=== PATIENT | male | born 1940 | race Hispanic/Latino ===

== ENCOUNTER 2016-12-29 09:37 | Outpatient (CLI) | payer MEDICARE, OTHER ==
[2016-12-29] MEDS ORDERED: NACL ONE (10:13)
[2016-12-29 10:14] LABS: Blood Urea Nitrogen 15 mg/dL (9-20)
--- NOTE | 2016-12-29 12:08 | Cat Scan Report ---
CT CHEST WITH CONTRAST: INDICATION: Pulmonary nodule. COMPARISON: 09/02/2016 PET/CT images. FINDINGS: Chest CT performed following IV contrast demonstrates normal heart size. No effusions. Few atherosclerotic changes, more so about the aortic arch and the descending aorta with intramural thrombus irregularity as also possible small ulcerations about the aortic arch measuring approximately 7 mm as on axial images 82 and 88, series 2, amongst others. No aortic aneurysm or suspicious pulmonary arterial filling defects. Patent central airway. No size significant axillary or hilar lymphadenopathy. Few small precarinal lymph nodes, the largest approximately 1 cm, axial image 104, series 2. Unremarkable thyroid. Interstitial lung disease with peripheral/subpleural septal thickening and early honeycombing noted, more so in both upper and lower lobes. Emphysematous changes in the upper lobes also noted, including mildly spiculated peripheral/pleural-based right upper lobe density anteriorly estimated at 1.3 x 1.2 cm, axial image 52, series 2. No other focal suspicious masses. Mild nonspecific distal esophageal prominence/thickening, not excluded for gastroesophageal reflux and/or hiatal hernia, amongst others. No acute upper abdominal CT abnormality with gastric posteromedial exaggerated wall thickness/possible 3.2 cm diverticulum not entirely excluded as on axial series 2, image 224, amongst others. Prominent multilevel degenerative changes along the imaged spine, including spurring and few end plate Schmorl's nodes. CONCLUSION: 1. No interval worsening of somewhat spiculated, scar-like right upper lobe pleural-based density in this patient with underlying chronic lung disease, as detailed above. Direct comparison with more remote relevant imaging would be very helpful to reassure stability and avoid further follow-up; in the absence of which a repeat CT in approximately 6-12 months may be considered towards a two year surveillance, as appropriate. 2. Various other incidental findings, as above. Thank you for the opportunity to participate in this patient's care.
== END 2016-12-29 09:38 | disposition home or self-care (01) ==
LOC: CT 09:37
PROVIDERS: ATTEND Internal Medicine Critical Care Medicine
DX: J84.9 Interstitial pulmonary disease, unspecified (principal); J98.4 Other disorders of lung; M47.899 Other spondylosis, site unspecified
CPT/HCPCS: 36415; 71260; 82565; 84520; Q9967

== ENCOUNTER 2017-06-22 09:04 | Outpatient (CLI) | payer MEDICARE, OTHER ==
[2017-06-22] MEDS ORDERED: NACL ONE (09:37)
[2017-06-22 09:40] LABS: Blood Urea Nitrogen 12 mg/dL (9-20)
--- NOTE | 2017-06-22 13:44 | Cat Scan Report ---
CT CHEST WITH CONTRAST History: Pulmonary nodule. Technique: Helical CT 1.25 mm intervals with sagittal and coronal reformatted images. Findings: The spiculated subpleural density in the anterior right upper lobe appears relatively stable since 12/29/16 measuring 1.4 x 1.3 cm in axial plane. There are underlying emphysematous changes with early fibrotic changes. No new pulmonary nodule or mass. No infiltrate or pleural effusion. Heart size is within normal limits. There are mild to moderate aortic calcifications but no aneurysm or dissection. The tracheobronchial tree, esophagus and thyroid gland are unremarkable. No mediastinal adenopathy has developed. The bony structures remain unremarkable. Thoracic spondylosis is stable. Impression: No significant change in the spiculated subpleural lesion in the anterior right upper lobe since 12/29/16. Emphysema. Mild fibrotic changes.
== END 2017-06-22 09:05 | disposition home or self-care (01) ==
LOC: CT 09:04
PROVIDERS: ATTEND Internal Medicine Critical Care Medicine
DX: J43.9 Emphysema, unspecified (principal); R91.1 Solitary pulmonary nodule; I70.0 Atherosclerosis of aorta; M47.894 Other spondylosis, thoracic region; F17.200 Nicotine dependence, unspecified, uncomplicated
CPT/HCPCS: 36415; 71260; 82565; 84520; Q9967

== ENCOUNTER 2018-03-30 10:01 | Outpatient (CLI) | payer MEDICARE, OTHER ==
--- NOTE | 2018-03-31 11:34 | PET Report ---
PET/CT:03/30/18 10:01:00 CLINICAL: Right upper lobe lung mass. RADIOPHARMACEUTICAL: 15.011mCi F18-FDG. COMPARISON: CT Chest 06/22/17 and 12/29/16 and PET/CT 07/03/16. TECHNIQUE- Following intravenous injection of F-18 FDG and an approximately 60 minute uptake period, CT and PET images from the mid skull to the upper thighs were acquired with the patient in the fasted state. No contrast was administered. The CT protocol used for this PET CT study is designed for attenuation correction and anatomic localization of PET abnormalities. This commercial loan collection officer CT is not desired to produce and cannot replace, [id number] diagnostic CT scans with specific imaging protocols for different body parts and indications. Plasma glucose at the time of this test: 105g/dl. The standardized uptake values (SUV) are normalized to patient body weight and indicate the highest activity concentration (SUV max) in a given disease site. FINDINGS: Brain--Physiologic FDG uptake in the visualized regions of the brain. Neck--Physiologic FDG uptake . Chest--Physiologic FDG uptake in mediastinal blood pool and myocardium. Lungs--There is a definite change compared to prior exams. A new spiculated FDG avid 3.1 x 3.1 cm right upper lobe lung mass with SUV 6.7 has developed at the inferior aspect of the previously described pleural-based scar. The pleural-based linear scar has thickened and measures 3.3 x 1.3 cm with SUV 6.2. The lungs are otherwise unchanged with stable extensive emphysema and multilobar peripheral fibrotic changes. Pleura/pericardium--No abnormal uptake. No pleural effusion. Thoracic nodes--A 1.3 x 1.2 cm FDG avid pretracheal lymph node with SUV 5.7 compared to 1.4 x 1.1 cm and SUV 5.4. No new abnormal uptake and no new lymphadenopathy. Hepatobiliary--No abnormal uptake. Liver background SUV mean, as a reference for comparing FDG studies, is 2.7 compared to 2.9 on the last exam. No liver mass. Spleen--No abnormal uptake. Pancreas--No abnormal uptake. Adrenal Glands--No abnormal uptake. Kidneys/Ureters/Bladder--No abnormal uptake. Abdominopelvic Nodes--No abnormal uptake. Bowel/Peritoneum/Mesentery--No abnormal uptake. Pelvic organs--No abnormal uptake. The prostate is moderately enlarged and there is mild diffuse thickening of the urinary bladder wall. Bones/Soft Tissues--No abnormal uptake. No suspicious bone lesion. IMPRESSION- 1. A new FDG avid 3.1 cm x 3.1 cm right upper lobe lung mass which has developed at the inferior aspect of a larger FDG avid pleural-based scar. The lesion would be amenable to CT-guided percutaneous needle biopsy. 2. Stable emphysema and multilobar fibrotic changes. 3. A stable FDG avid pretracheal lymph node and no new lymphadenopathy. 4. No evidence of hepatic skeletal metastasis. 5. Prostate enlargement and urinary bladder wall thickening.
== END 2018-03-30 10:02 | disposition home or self-care (01) ==
LOC: PET 10:01
PROVIDERS: ATTEND Internal Medicine Critical Care Medicine
DX: C34.30 Malignant neoplasm of lower lobe, unspecified bronchus or lung (principal); J43.9 Emphysema, unspecified; N40.0 Benign prostatic hyperplasia without lower urinary tract symptoms; F17.210 Nicotine dependence, cigarettes, uncomplicated
CPT/HCPCS: 78815; 82962; A9552

== ENCOUNTER 2019-12-06 10:02 | Inpatient (IN) | payer MEDICARE, OTHER ==
[2019-12-06] MEDS ORDERED: ASPIRIN 81 MG TAB CHEW PO ONE (10:20)
--- NOTE | 2019-12-06 10:26 | Emergency Department Report ---
ED Palpitations HPI - General Chief Complaint: Arrhythmia/Palpitations Stated Complaint: PULSE RATE HIGH Time Seen by Provider: 12/06/19 10:16 Source: patient Mode of arrival: Ambulatory Limitations: No Limitations - History of Present Illness Initial Comments: Mr. Angulo is a pleasant 79 years old male with history of lung cancer currently taking radiation. Patient went for his radiation therapy this morning and found to have a heart rate of 159 patient was asked to come to the ER. In the ER patient found to be in atrial fibrillation with RVR and a heart rate of 142. Patient stated that he never had history of irregular heartbeat before. He st ated that last night he felt slightly dizzy but went away. Currently patient denying any chest pain or shortness of breath. No fever or chills. No recent nausea or vomiting MD Complaint: rapid heart beat, "heart racing", palpitations, irregular heart beat -: Last night Associated Symptoms: denies other symptoms - Related Data Home Medications Medication Instructions Recorded Confirmed Last Taken ALBUTEROL Inhaler(NF) [VENTOLIN 2 puff INHALATION DAILY PRN 01/17/17 01/17/17 01/12/17 Inhaler(NF)] Tamsulosin HCl 0.4 mg PO DAILY 01/17/17 01/17/17 01/16/17 Previous Rx's Medication Instructions Recorded Last Taken Type Aspirin EC [Halfprin EC] 81 mg PO QDAY #30 tablet. 01/17/17 Unknown Rx AtorvaSTATin [Lipitor] 40 mg PO QHS #30 tablet 01/17/17 Unknown Rx Allergies Allergy/AdvReac Type Severity Reaction Status Date / Time No Known Allergies Allergy Verified 01/17/17 09:19 ED Review of Systems ROS: Stated complaint: PULSE RATE HIGH Other details as noted in HPI Comment: All other systems reviewed and negative Constitutional: denies: chills, fever Respiratory: denies: cough, shortness of breath, SOB with exertion, SOB at rest, wheezing Cardiovascular: palpitations. denies: chest pain Gastrointestinal: denies: abdominal pain, nausea, vomiting, diarrhea, constipation, hematemesis, melena, hematochezia Musculoskeletal: denies: back pain Neurological: denies: headache, weakness, numbness, paresthesias, confusion ED Past Medical Hx - Past Medical History Previous Medical History?: Yes Hx of Cancer: Yes (lung) Hx Arthritis: Yes (knees & thumbs) - Surgical History Past Surgical History?: Yes Additional Surgical History: back surgery - Social History Smoking Status: Current Every Day Smoker Substance Use Type: None - Medications Home Medications: Home Medications Medication Instructions Recorded Confirmed Last Taken Type ALBUTEROL Inhaler(NF) [VENTOLIN 2 puff INHALATION DAILY PRN 01/17/17 01/17/17 01/12/17 History Inhaler(NF)] Aspirin EC [Halfprin EC] 81 mg PO QDAY #30 tablet. 01/17/17 Unknown Rx AtorvaSTATin [Lipitor] 40 mg PO QHS #30 tablet 01/17/17 Unknown Rx Tamsulosin HCl 0.4 mg PO DAILY 01/17/17 01/17/17 01/16/17 History ED Physical Exam - General Limitations: No Limitations General appearance: alert, in no apparent distress - Head Head exam: Present: atraumatic, normocephalic, normal inspection - Eye Eye exam: Present: normal appearance - ENT ENT exam: Present: normal exam, normal orophraynx, mucous membranes moist - Neck Neck exam: Present: normal inspection, full ROM. Absent: tenderness, meningismus, lymphadenopathy, thyromegaly - Respiratory Respiratory exam: Present: normal lung sounds bilaterally - Cardiovascular Cardiovascular Exam: Present: tachycardia, irregular rhythm - GI/Abdominal GI/Abdominal exam: Present: soft, normal bowel sounds. Absent: distended, tenderness, guarding, rebound, rigid, organomegaly, mass, bruit, pulsatile mass, hernia - Extremities Exam Extremities exam: Present: normal inspection, full ROM, normal capillary refill. Absent: tenderness, pedal edema, joint swelling, calf tenderness - Back Exam Back exam: Present: normal inspection, full ROM. Absent: CVA tenderness (R), CVA tenderness (L) - Neurological Exam Neurological exam: Present: alert, reflexes normal. Absent: oriented X3, CN II- XII intact, normal gait, abnormal gait - Skin Skin exam: Present: warm, intact, normal color ED Course Vital Signs 12/06/19 12/06/19 12/06/19 10:14 10:30 11:15 Temperature 97.7 F Pulse Rate 156 H 118 H 115 H Respiratory 16 16 Rate Blood Pressure 136/74 125/63 Blood Pressure 105/79 [Right] O2 Sat by Pulse 94 100 Oximetry 12/06/19 11:57 Temperature Pulse Rate 75 Respiratory 18 Rate Blood Pressure Blood Pressure 137/80 [Right] O2 Sat by Pulse 98 Oximetry ED Medical Decision Making - Lab Data Result diagrams: 12/06/19 10:27 12/06/19 10:27 - EKG Data -: EKG Interpreted by Me Rate: tachycardia - EKG Data 12/06/19 12:24 Atrial fibrillation with RVR, heart rate 142 - Medical Decision Making Mr. Angulo is a pleasant 79 years old male with history of lung cancer currently taking radiation. Patient went for his radiation therapy this morning and found to have a heart rate of 159 patient was asked to come to the ER. In the ER patient found to be in atrial fibrillation with RVR and a heart rate of 142. Patient stated that he never had history of irregular heartbeat before. He stated that last night he felt slightly dizzy but went away. Currently patient denying any chest pain or shortness of breath. No fever or chills. No recent nausea or vomiting. EKG showed A. fib with RVR and a heart rate of 100.2. Patient received Cardizem 10 mg IV and is started on Cardizem drip at 5 mg per hour. Labs reviewed and is unremarkable including a negative troponin. Patient heart rate now is 82. Discussed the patient with Dr. Castellon, he agreed to admit the patient to medical service for further management. Critical Care Time: Yes Critical care time in (mins) excluding proc time.: 30 Critical care attestation.: If time is entered above; I have spent that time in minutes in the direct care of this critically ill patient, excluding procedure time. ED Disposition Clinical Impression: Atrial fibrillation with rapid ventricular response Disposition: OP ADMIT IP TO THIS HOSP Is pt being admited?: Yes Condition: Stable
[2019-12-06 10:56] LABS: Basophils % (Auto) 0.5 % (0.0-1.8); Eosinophils # (Auto) 0.2 K/mm3 (0.0-0.4); Eosinophils % (Auto) 2.8 % (0.0-4.3); Hematocrit 43.6 % (35.5-45.6); Hemoglobin 14.4 gm/dl (11.8-15.2); Lymphocytes # (Auto) 1.2 K/mm3 (1.2-5.4); Lymphocytes % (Auto) 19.9 % (13.4-35.0); Mean Corpuscular HGB Conc 33 % (32-34); Mean Corpuscular Volume 91 fl (84-94); Monocytes # (Auto) 0.3 K/mm3 (0.0-0.8); Monocytes % (Auto) 5.6 % (0.0-7.3); Platelet Count 303 K/mm3 (140-440); Red Blood Count 4.79 M/mm3 (3.65-5.03); Red Cell Distribution Width 15.9 % (13.2-15.2)
[2019-12-06] MEDS ORDERED: dilTIAZem 50 MG/10 ML INJ IV ONE (11:00)
[2019-12-06] MEDS ORDERED: dilTIAZem/D5W 100 MG/100 ML BAG IV SCH (11:00)
[2019-12-06] MEDS ORDERED: dilTIAZem 25 MG/5 ML INJ IV ONE (11:00)
[2019-12-06 11:07] LABS: INR 0.96 (0.87-1.13)
[2019-12-06 11:08] LABS: Partial Thromboplastin Time 28.7 Sec. (24.2-36.6)
--- NOTE | 2019-12-06 11:09 | XRay Report ---
CHEST 1 VIEW 12/06/2019 10:29 AM INDICATION / CLINICAL INFORMATION: Dysrhythmia. COMPARISON: PET/CT from 03/30/2018. FINDINGS: SUPPORT DEVICES: None. HEART / MEDIASTINUM: No significant abnormality. LUNGS / PLEURA: Generalized or central prominence likely represents chronic parenchymal disease. No o ther acute pulmonary abnormality, pleural effusion or pneumothorax. ADDITIONAL FINDINGS: No significant additional findings. IMPRESSION: 1. No acute abnormality of the chest. 2. Probable chronic interstitial lung disease. Signer Name: Wilberto Saul MD Signed: 12/06/2019 11:05 AM Workstation Name: [id number]
[2019-12-06 12:04] LABS: BUN/Creatinine Ratio 19; Blood Urea Nitrogen 15 mg/dL (9-20); Calcium 9.4 mg/dL (8.4-10.2); Hemolysis Index 6
--- NOTE | 2019-12-06 12:24 | History and Physical Report ---
History of Present Illness Chief complaint: My heart was beating real fast History of present illness: 79-year-old male with osteoarthritis, nicotine dependence, lung cancer currently undergoing radiation therapy presents to ED for evaluation. Patient states that he went to his oncologist office for his routine scheduled radiation therapy this morning. Upon getting vital signs taken, the patient was found to have a heart rate of 159. Patient was instructed to seek further care at [facility]. Patient transported to [facility] via private vehicle. Patient seen and evaluated in the emergency department. Lab and imaging studies reviewed. EKG showed atrial fibrillation with rapid ventricular response. Patient admitted to [facility] for medical stabilization due to increased risk of decompensation. Cardiology team consulted in ED. Patient denies fever, chills, shortness of breath, chest pain, palpitations, bright red blood per rectum, productive cough, skin rash, unintentional weight loss, night sweats, recent ill contacts. No prior admission for review. All listed medication reconciled at time of admission. Advanced care planning conducted in ED. Patient acknowledges understanding and agreement with care plan. Past History Past Medical History: arthritis, diabetes, other (See HPI) Past Surgical History: Other (Back surgery) Social history: smoking Family history: hypertension Medications and Allergies Allergies Allergy/AdvReac Type Severity Reaction Status Date / Time No Known Allergies Allergy Verified 01/17/17 09:19 Home Medications Medication Instructions Recorded Confirmed Last Taken Type ALBUTEROL Inhaler(NF) [VENTOLIN 2 puff INHALATION DAILY PRN 01/17/17 01/17/17 01/12/17 History Inhaler(NF)] Aspirin EC [Halfprin EC] 81 mg PO QDAY #30 tablet. 01/17/17 Unknown Rx AtorvaSTATin [Lipitor] 40 mg PO QHS #30 tablet 01/17/17 Unknown Rx Tamsulosin HCl 0.4 mg PO DAILY 01/17/17 01/17/17 01/16/17 History Active Meds: Active Medications Diltiazem HCl (Cardizem/D5w 100mg/100ml) 100 mg in 100 mls @ 5 mls/hr IV TITR SADNRA; Protocol Last Admin: 12/06/19 11:15 Dose: 5 mg/hr, 5 mls/hr Documented by: Review of Systems Constitutional: no weight loss, no weight gain, no fever, no chills Ears, nose, mouth and throat: no ear pain, no ear discharge, no tinnitis, no decreased hearing Cardiovascular: rapid/irregular heart beat, no chest pain, no orthopnea, no palp itations, no edema, no syncope Respiratory: no cough, no cough with sputum, no excessive sputum, no hemoptysis Gastrointestinal: no nausea, no vomiting, no diarrhea, no constipation Genitourinary Male: no hematuria, no flank pain, no discharge, no urinary frequency, no urinary hesitancy Rectal: no pain, no incontinence Musculoskeletal: no neck pain, no shooting arm pain, no arm numbness/tingling, no low back pain, no shooting leg pain Integumentary: no rash, no pruritis, no redness, no sores, no wounds, no boils Neurological: weakness, no transient paralysis, no parathesias, no numbness, no tingling, no seizures, no syncope Psychiatric: no anxiety, no memory loss, no change in sleep habits, no sleep disturbances, no insomnia, no suicidal ideation, no disorientation Endocrine: no cold intolerance, no heat intolerance, no excessive thirst, no polyuria Hematologic/Lymphatic: no easy bruising, no easy bleeding, no lymphadenopathy, no lymphedema Allergic/Immunologic: no urticaria, no allergic rhinitis, no wheezing, no anaphylaxis, no angioedema Exam - Constitutional Vitals: Temp Pulse Resp BP Pulse Ox 97.7 F 75 18 137/80 98 12/06/19 10:14 12/06/19 11:57 12/06/19 11:57 12/06/19 11:57 12/06/19 11:57 General appearance: Present: mild distress - EENT Eyes: Present: PERRL ENT: hearing intact, clear oral mucosa - Neck Neck: Present: supple, normal ROM - Respiratory Respiratory effort: normal Respiratory: bilateral: CTA - Cardiovascular Rhythm: other (Tachycardia) Heart Sounds: Present: S1 & S2. Absent: rub, click - Extremities Extremities: pulses symmetrical, No edema Peripheral Pulses: within normal limits - Abdominal General gastrointestinal: Present: soft, non-tender, non-distended, normal bowel sounds Male genitourinary: Present: normal - Integumentary Integumentary: Present: clear, warm, dry - Musculoskeletal Musculoskeletal: gait normal, strength equal bilaterally - Psychiatric Psychiatric: appropriate mood/affect, intact judgment & insight - Neurologic Neurologic: CNII-XII intact, moves all extremities Results - Labs CBC & Chem 7: 12/06/19 10:27 12/06/19 10:27 Labs: Abnormal lab results 12/06/19 12/06/19 Range/Units 10:27 10:27 RDW 15.9 H (13.2-15.2) % Seg Neutrophils % 71.2 H (40.0-70.0) % Glucose 112 H (75-100) mg/dL Assessment and Plan - Patient Problems (1) Atrial fibrillation with rapid ventricular response Current Visit: Yes Status: Acute Plan to address problem: Cardiology consulted in ED, thyroid panel, magnesium level, Cardizem drip, titrate to achieve heart rate less than or equal to 100, then transition to p.o. Cardizem (2) Nicotine dependence Current Visit: Yes Status: Acute Qualifiers: Nicotine product type: cigarettes Substance use status: in withdrawal Qualified Code(s): F17.213 - Nicotine dependence, cigarettes, with withdrawal Plan to address problem: Smoking cessation counseling, supportive care, behavior change counseling, +15 minutes. (3) Advance care planning Current Visit: Yes Status: Acute Plan to address problem: Patient is full code, disease education conducted, patient acknowledges understanding and agreement with care plan, +30 minutes. (4) Osteoarthritis Current Visit: Yes Status: Acute Plan to address problem: Pain control, NSAID therapy as tolerated, supportive care. (5) DVT prophylaxis Current Visit: Yes Status: Acute Plan to address problem: SCD to bilateral lower extremities while in bed, patient ambulatory.
[2019-12-06 17:31] LABS: Bilirubin,Urine NEG (Negative); Blood,Urine NEG (Negative); Color,Urine Yellow (Yellow); Protein,Urine <15 mg/dL mg/dL (Negative); Urobilinogen,Urine < 2.0 mg/dL (<2.0); WBC,Urine < 1.0 /HPF (0.0-6.0)
--- NOTE | 2019-12-07 09:21 | Consultation ---
History of Present Illness Consult date: 12/07/19 Consult reason: atrial fibrillation History of present illness: This is a 79-year old male with a history of peripheral vascular disease, lung cancer, currently on radiation therapy and continued tobacco abuse. Patient presents to the emergency department with an elevated heart rate. Patient reports heart rate at 159 on his home blood pressure monitor two night ago. On yesterday, prior to radiation, patient reports his heart rate remained high so he was referred to the emergency department for further evaluation. On presentation, patient was found with rapid atrial fibrillation, rate 142. Patient denies chest pain, palpitations and unusual shortness of breath. He was treated with intravenous Diltiazem and has since reverted to a sinus rhythm. Cardiology consultation has been requested. Past History Past Medical History: cancer Past Surgical History: Other (Back surgery) Social history: smoking Family history: hypertension Medications and Allergies Allergies Allergy/AdvReac Type Severity Reaction Status Date / Time No Known Allergies Allergy Verified 01/17/17 09:19 Home Medications Medication Instructions Recorded Confirmed Last Taken Type Tamsulosin HCl 0.4 mg PO DAILY 01/17/17 12/06/19 01/16/17 History Active Meds: Active Medications Diltiazem HCl (Cardizem/D5w 100mg/100ml) 100 mg in 100 mls @ 5 mls/hr IV TITR SANDRA; Protocol Last Titration: 12/06/19 23:22 Dose: 0 mg/hr, 0 mls/hr Documented by: Sodium Chloride (Sodium Chloride Flush Syringe 10 Ml) 10 ml IV BID SANDRA Last Admin: 12/06/19 22:20 Dose: Not Given Documented by: Sodium Chloride (Sodium Chloride Flush Syringe 10 Ml) 10 ml IV PRN PRN PRN Reason: LINE FLUSH Physical Examination Vital Signs Temp Pulse Resp BP Pulse Ox 97.7 F 156 H 16 136/74 94 12/06/19 10:14 12/06/19 10:14 12/06/19 10:14 12/06/19 10:14 12/06/19 10:14 General appearance: no acute distress HEENT: Positive: PERRL Neck: Positive: trachea midline Cardiac: Positive: Reg Rate and Rhythm Lungs: Positive: Decreased Breath Sounds Neuro: Positive: Grossly Intact Results 12/06/19 10:27 12/06/19 10:27 Coagulation 12/06/19 Range/Units 10:27 PT 12.9 (12.2-14.9) Sec. INR 0.96 (0.87-1.13) APTT 28.7 (24.2-36.6) Sec. CBC 12/06/19 Range/Units 10:27 WBC 6.2 (4.5-11.0) K/mm3 RBC 4.79 (3.65-5.03) M/mm3 Hgb 14.4 (11.8-15.2) gm/dl Hct 43.6 (35.5-45.6) % Plt Count 303 (140-440) K/mm3 Lymph # 1.2 (1.2-5.4) K/mm3 Gilchrist # 0.3 (0.0-0.8) K/mm3 Eos # 0.2 (0.0-0.4) K/mm3 Baso # 0.0 (0.0-0.1) K/mm3 Comprehensive Metabolic Panel 12/06/19 Range/Units 10:27 Sodium 139 (137-145) mmol/L Potassium 4.4 (3.6-5.0) mmol/L Chloride 99.1 (98-107) mmol/L Carbon Dioxide 27 (22-30) mmol/L BUN 15 (9-20) mg/dL Creatinine 0.8 (0.8-1.5) mg/dL Glucose 112 H (75-100) mg/dL Calcium 9.4 (8.4-10.2) mg/dL Assessment and Plan - Patient Problems (1) Atrial fibrillation with rapid ventricular response Current Visit: Yes Status: Acute Plan to address problem: Atrial fibrillation, new onset reverted to sinus rhythm Check TSH. Echocardiogram for LVEF assessment. Transition to oral Diltiazem for suppression of paroxysmal Afib Initiate Eliquis for CVA prophylaxis.
--- NOTE | 2019-12-07 11:03 | Progress Note ---
Assessment and Plan Assessment and plan: Atrial fibrillation with RVR. New onset. Patient has reverted back to sinus rhythm with IV Cardizem. Continue p.o. Cardizem for now. Follow-up TSH and echocardiogram. Lung cancer. Continue radiation as outpatient. Follow-up with oncology. Tobacco abuse. Patient has been counseled on smoking cessation. Osteoarthritis. History Interval history: No new issues overnight. Patient denies any chest pain. Telemetry reveals normal sinus rhythm. Hospitalist Physical - Constitutional Vitals: Temp Pulse Resp BP Pulse Ox 98.4 F 63 18 107/64 87 12/07/19 07:38 12/07/19 07:38 12/07/19 07:38 12/07/19 07:38 12/07/19 07:38 General appearance: Present: no acute distress - EENT Eyes: Present: PERRL, EOM intact ENT: hearing intact, clear oral mucosa, dentition normal - Neck Neck: Present: supple, normal ROM - Respiratory Respiratory effort: normal Respiratory: bilateral: CTA - Cardiovascular Rhythm: regular Heart Sounds: Present: S1 & S2. Absent: gallop, rub - Extremities Extremities: no ischemia, No edema, Full ROM - Abdominal General gastrointestinal: soft, non-tender, non-distended, normal bowel sounds - Integumentary Integumentary: Present: clear, warm, dry - Neurologic Neurologic: CNII-XII intact, moves all extremities Results - Labs CBC & Chem 7: 12/06/19 10:27 12/06/19 10:27 Labs: Laboratory Last Values WBC 6.2 K/mm3 (4.5-11.0) 12/06/19 10:27 RBC 4.79 M/mm3 (3.65-5.03) 12/06/19 10:27 Hgb 14.4 gm/dl (11.8-15.2) 12/06/19 10:27 Hct 43.6 % (35.5-45.6) 12/06/19 10:27 MCV 91 fl (84-94) 12/06/19 10:27 MCH 30 pg (28-32) 12/06/19 10:27 MCHC 33 % (32-34) 12/06/19 10:27 RDW 15.9 % (13.2-15.2) H 12/06/19 10:27 Plt Count 303 K/mm3 (140-440) 12/06/19 10:27 Lymph % (Auto) 19.9 % (13.4-35.0) 12/06/19 10:27 [place] % (Auto) 5.6 % (0.0-7.3) 12/06/19 10:27 Eos % (Auto) 2.8 % (0.0-4.3) 12/06/19 10:27 Baso % (Auto) 0.5 % (0.0-1.8) 12/06/19 10:27 Lymph # 1.2 K/mm3 (1.2-5.4) 12/06/19 10:27 [place] # 0.3 K/mm3 (0.0-0.8) 12/06/19 10:27 Eos # 0.2 K/mm3 (0.0-0.4) 12/06/19 10:27 Baso # 0.0 K/mm3 (0.0-0.1) 12/06/19 10:27 Seg Neutrophils % 71.2 % (40.0-70.0) H 12/06/19 10:27 Seg Neutrophils # 4.4 K/mm3 (1.8-7.7) 12/06/19 10:27 PT 12.9 Sec. (12.2-14.9) 12/06/19 10:27 INR 0.96 (0.87-1.13) 12/06/19 10:27 APTT 28.7 Sec. (24.2-36.6) 12/06/19 10:27 Sodium 139 mmol/L (137-145) 12/06/19 10:27 Potassium 4.4 mmol/L (3.6-5.0) 12/06/19 10:27 Chloride 99.1 mmol/L (98-107) 12/06/19 10:27 Carbon Dioxide 27 mmol/L (22-30) 12/06/19 10:27 Anion Gap 17 mmol/L 12/06/19 10:27 BUN 15 mg/dL (9-20) 12/06/19 10:27 Creatinine 0.8 mg/dL (0.8-1.5) 12/06/19 10:27 Estimated GFR > 60 ml/min 12/06/19 10:27 BUN/Creatinine Ratio 19 % 12/06/19 10:27 Glucose 112 mg/dL (75-100) H 12/06/19 10:27 Calcium 9.4 mg/dL (8.4-10.2) 12/06/19 10:27 Magnesium 1.80 mg/dL (1.7-2.3) 12/06/19 10:27 Troponin T < 0.010 ng/mL (0.00-0.029) 12/06/19 17:01 Free T4 1.04 ng/dL (0.76-1.46) 12/07/19 09:03 Urine Color Yellow (Yellow) 12/06/19 16:45 Urine Turbidity Clear (Clear) 12/06/19 16:45 Urine pH 6.0 (5.0-7.0) 12/06/19 16:45 Ur Specific [place] 1.009 (1.003-1.030) 12/06/19 16:45 Urine Protein <15 mg/dl mg/dL (Negative) 12/06/19 16:45 Urine Glucose (UA) Neg mg/dL (Negative) 12/06/19 16:45 Urine Ketones Neg mg/dL (Negative) 12/06/19 16:45 Urine Blood Neg (Negative) 12/06/19 16:45 Urine Nitrite Neg (Negative) 12/06/19 16:45 Urine Bilirubin Neg (Negative) 12/06/19 16:45 Urine Urobilinogen < 2.0 mg/dL (<2.0) 12/06/19 16:45 Ur Leukocyte Esterase Neg (Negative) 12/06/19 16:45 Urine WBC (Auto) < 1.0 /HPF (0.0-6.0) 12/06/19 16:45 Urine RBC (Auto) 3.0 /HPF (0.0-6.0) 12/06/19 16:45 Active Medications - Current Medications Current Medications: Generic Name Dose Route Start Last Admin Trade Name Freq PRN Reason Stop Dose Admin Diltiazem HCl 100 mg in 100 mls @ 5 mls/hr 12/06/19 11:00 12/06/19 23:22 Cardizem/D5w 100mg/100ml IV 0 mg/hr TITR SANDRA 0 mls/hr Titration Protocol 5 MG/HR Sodium Chloride 10 ml 12/06/19 22:00 01/23/20 22:20 Sodium Chloride Flush Syringe 10 Ml IV Not Given BID SANDRA Sodium Chloride 10 ml 12/06/19 12:24 Sodium Chloride Flush Syringe 10 Ml IV PRN PRN LINE FLUSH
[2019-12-07] MEDS: APIXABAN 5 MG TAB PO SCH ×2 (12:39→21:49)
[2019-12-07] MEDS: dilTIAZem 30 MG TAB PO SCH ×2 (12:40→17:32)
[2019-12-08] MEDS: dilTIAZem 30 MG TAB PO SCH ×3 (01:01→11:02)
--- NOTE | 2019-12-08 09:54 | Discharge Summary ---
Providers - Providers Date of Admission: 12/06/19 12:24 Date of discharge: 12/08/19 Attending physician: MAIKEL SHEETS 12/06/19 14:47 Consult to Physician [CONS] Routine Comment: Consulting Provider: ANIKET LORD Physician Instructions: Reason For Exam: Atrial Fib Primary care physician: BARRON FRIEDMAN Hospitalization Reason for admission: new afib Condition: Stable Hospital course: This is a 79-year old male with a history of peripheral vascular disease, lung cancer, currently on radiation therapy and continued tobacco abuse who presented to the emergency department with an elevated heart rate. On presentation, patient was found with rapid atrial fibrillation, rate 142. Patient denied chest pain, palpitations and unusual shortness of breath. He was treated with intravenous Diltiazem and reverted to a sinus rhythm. Cardiology consultation was obtained. Cardiology recommended echocardiogram and diltiazem 30 mg every 6 hours along with Eliquis 5 mg every 12 hours. Patient is a follow-up with regards to the echocardiogram with [facility] as an outpatient. Patient is felt to have received maximal hospital benefit and will be discharged home. Dedicated discharge time 35 minutes Disposition: [id number] TO HOME OR SELFCARE Time spent for discharge: 35 - Discharge Diagnoses (1) Atrial fibrillation with rapid ventricular response Status: Acute (2) Hypertension Status: Acute (3) Nicotine dependence Status: Acute Qualifiers: Nicotine product type: cigarettes Substance use status: in withdrawal Qualified Code(s): F17.213 - Nicotine dependence, cigarettes, with withdrawal Core Measure Documentation - Palliative Care Palliative Care/ Comfort Measures: Not Applicable - Core Measures Any of the following diagnoses?: none Exam - Constitutional Vitals: Temp Pulse Resp BP Pulse Ox 97.9 F 68 18 99/59 92 12/08/19 07:46 12/08/19 07:46 12/08/19 07:46 12/08/19 07:46 12/08/19 07:46 General appearance: Present: no acute distress, well-nourished - EENT Eyes: Present: PERRL ENT: hearing intact, clear oral mucosa - Neck Neck: Present: supple, normal ROM - Respiratory Respiratory effort: normal Respiratory: bilateral: CTA - Cardiovascular Heart Sounds: Present: S1 & S2. Absent: rub, click - Extremities Extremities: pulses symmetrical, No edema Peripheral Pulses: within normal limits - Abdominal General gastrointestinal: Present: soft, non-tender, non-distended, normal bowel sounds Male genitourinary: Present: normal - Integumentary Integumentary: Present: clear, warm, dry - Musculoskeletal Musculoskeletal: gait normal, strength equal bilaterally - Psychiatric Psychiatric: appropriate mood/affect, intact judgment & insight - Neurologic Neurologic: CNII-XII intact, moves all extremities Plan Activity: advance as tolerated Weight Bearing Status: Weight Bear as Tolerated Diet: regular Special Instructions: smoking cessation Follow up with: BARRON FRIEDMAN MD [Primary Care Provider] - 3-5 Days ANIKET LORD MD [Staff Physician] - 7 Days Prescriptions: dilTIAZem [Cardizem] 30 mg PO Q6HR #120 tablet Apixaban [Eliquis] 5 mg PO Q12HR #60 tablet
[2019-12-08] MEDS: APIXABAN 5 MG TAB PO SCH (11:00)
[2019-12-08 11:03] VITALS: BP 113/82
== END 2019-12-08 11:43 | disposition home or self-care (01) | DRG 309 ==
LOC: ED 10:02 → IMCU 12:24 → 4A 23:40
PROVIDERS: ADMIT Internal Medicine; ATTEND Hospitalist
DX: I48.92 Unspecified atrial flutter (principal); F17.213 Nicotine dependence, cigarettes, with withdrawal; I48.91 Unspecified atrial fibrillation; M19.90 Unspecified osteoarthritis, unspecified site; F17.210 Nicotine dependence, cigarettes, uncomplicated; M17.0 Bilateral primary osteoarthritis of knee; I73.9 Peripheral vascular disease, unspecified; I10 Essential (primary) hypertension; Z85.118 Personal history of other malignant neoplasm of bronchus and lung; Z79.82 Long term (current) use of aspirin
CPT/HCPCS: 36415; 71045; 80048; 81001; 83735; 84439; 84443; 84484; 85025; 85610; 85730; 93005; 93010; 93306; 96375; G0378

== ENCOUNTER 2020-06-07 11:23 | Inpatient (IN) | payer MEDICARE, OTHER ==
--- NOTE | 2020-06-07 11:44 | Emergency Department Report ---
ED General Adult HPI - General Chief complaint: Dyspnea/Respdistress Stated complaint: AMARA X 3 DAYS PUI?: Yes Time Seen by Provider: 06/07/20 11:42 Source: patient, EMS (Verbal report received from emergency medical services. EMS documentation not available at time of chart dictation ), RN notes reviewed, old records reviewed Mode of arrival: Stretcher Limitations: Physical Limitation - History of Present Illness Initial comments: For the entire history and physical examination, I had on complete personal protective equipment Primary care doctor: Dr Berumen Pulmonology: Dr Patton Cardiology: Dr Radha Ceron Hematology oncology: Dr Thomas with [facility] Past medical history: Paroxysmal A. 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 Patient states he is not on home oxygen, has been having cough and shortness of breath for about the past 3 days, states he was satting in the 50s at home, [facility] medical services were activated, patient was found to be hypoxic in the field, and they initiated a nonrebreather. They also gave albuterol, steroids, and magnesium in the field. The patient is not having any pain, and his symptoms are much improved with application of nonrebreather oxygen. He endorses compliance with his systemic anticoagulation, denies headache, neck pain, chest pain, abdominal pain, loss of taste, loss of smell, fever, and he also denies travel, and surgeries, leg pain or leg swelling. He endorses no known exposures to covid that he is aware of. EMS also verbally informed me that the patient was wheezing diffusely and impressively in the field. -: Gradual, days(s) Consistency: constant Improves with: rest Worsens with: movement - Related Data Home Medications Medication Instructions Recorded Confirmed Last Taken Tamsulosin HCl 0.4 mg PO DAILY 01/17/17 12/06/19 01/16/17 Previous Rx's Medication Instructions Recorded Last Taken Type Apixaban [Eliquis] 5 mg PO Q12HR #60 tablet 12/08/19 Unknown Rx dilTIAZem [Cardizem] 30 mg PO Q6HR #120 tablet 12/08/19 Unknown Rx Allergies Allergy/AdvReac Type Severity Reaction Status Date / Time No Known Allergies Allergy Verified 01/17/17 09:19 ED Review of Systems ROS: Stated complaint: AMARA X 3 DAYS Other details as noted in HPI Constitutional: malaise, weakness. denies: fever Eyes: denies: eye discharge ENT: congestion Respiratory: cough, shortness of breath, SOB with exertion, SOB at rest, wheezing Cardiovascular: denies: chest pain Gastrointestinal: denies: abdominal pain, hematemesis, melena, hematochezia Genitourinary: denies: dysuria Musculoskeletal: denies: back pain Neurological: weakness Hematological/Lymphatic: denies: easy bleeding ED Past Medical Hx - Past Medical History Hx Hypertension: No Hx Congestive Heart Failure: No Hx Diabetes: No (pt denies) Hx Arthritis: Yes (knees & thumbs) Hx Asthma: No - Surgical History Additional Surgical History: back surgery - Social History Smoking Status: Current Every Day Smoker - Medications Home Medications: Home Medications Medication Instructions Recorded Confirmed Last Taken Type Tamsulosin HCl 0.4 mg PO DAILY 01/17/17 12/06/19 01/16/17 History Apixaban [Eliquis] 5 mg PO Q12HR #60 tablet 12/08/19 Unknown Rx dilTIAZem [Cardizem] 30 mg PO Q6HR #120 tablet 12/08/19 Unknown Rx ED Physical Exam - General Limitations: Physical Limitation General appearance: alert, in no apparent distress - Head Head exam: Present: atraumatic, normocephalic - Eye Eye exam: Present: normal appearance - ENT ENT exam: Present: normal exam, normal orophraynx, mucous membranes moist, normal external ear exam - Neck Neck exam: Present: normal inspection, full ROM. Absent: tenderness, meningismus - Respiratory Respiratory exam: Present: respiratory distress, wheezes, rhonchi, accessory muscle use - Cardiovascular Cardiovascular Exam: Present: regular rate, normal rhythm, normal heart sounds. Absent: bradycardia, tachycardia, irregular rhythm, systolic murmur, diastolic murmur, rubs, gallop - GI/Abdominal GI/Abdominal exam: Present: soft. Absent: distended, tenderness, guarding, rebound, rigid, pulsatile mass - Rectal Rectal exam: Present: deferred - Extremities Exam Extremities exam: Present: normal inspection, full ROM, other (2+ pulses noted in the bilateral upper and lower extremities. There is no palpable cord. negative Homans sign. Muscular compartments are soft. The pelvis is stable.). Absent: pedal edema, calf tenderness - Back Exam Back exam: Present: normal inspection, full ROM. Absent: tenderness, CVA tenderness (R), CVA tenderness (L), paraspinal tenderness, vertebral tenderness - Neurological Exam Neurological exam: Present: alert, other (No facial droop. Tongue midline. Extraocular movements intact bilaterally. Facial sensation intact to light touch in V1, V2, V3 distribution bilaterally. 5 and a 5 strength in 4 extremities. Sensation intact to light touch in 4 extremities.). Absent: motor sensory deficit - Psychiatric Psychiatric exam: Present: normal affect, normal mood - Skin Skin exam: Present: warm, dry, intact, normal color. Absent: rash ED Course Vital Signs 06/07/20 06/07/20 06/07/20 11:41 11:45 12:00 Pulse Rate 88 87 88 Pulse Rate [ Throughout] Respiratory 17 20 25 H Rate Respiratory Rate [ Throughout] Blood Pressure 129/58 112/58 O2 Sat by Pulse 100 97 Oximetry 06/07/20 06/07/20 06/07/20 12:15 12:30 12:45 Pulse Rate 93 H 82 80 Pulse Rate [ Throughout] Respiratory 21 27 H 19 Rate Respiratory Rate [ Throughout] Blood Pressure 107/51 111/57 115/59 O2 Sat by Pulse 96 95 97 Oximetry 06/07/20 06/07/20 06/07/20 13:00 13:16 13:30 Pulse Rate 81 89 80 Pulse Rate [ Throughout] Respiratory 19 27 H 22 Rate Respiratory Rate [ Throughout] Blood Pressure 126/59 111/54 119/56 O2 Sat by Pulse 92 91 97 Oximetry 06/07/20 06/07/20 06/07/20 13:45 14:00 14:16 Pulse Rate 93 H 113 H 104 H Pulse Rate [ Throughout] Respiratory 22 27 H 18 Rate Respiratory Rate [ Throughout] Blood Pressure 121/65 121/65 89/61 O2 Sat by Pulse 97 87 90 Oximetry 06/07/20 06/07/20 06/07/20 14:30 14:39 14:45 Pulse Rate 94 H 92 H Pulse Rate [ 92 H Throughout] Respiratory 22 20 Rate Respiratory 20 Rate [ Throughout] Blood Pressure 103/67 100/67 O2 Sat by Pulse 98 96 Oximetry 06/07/20 06/07/20 06/07/20 15:00 15:16 15:30 Pulse Rate 95 H 112 H 90 Pulse Rate [ Throughout] Respiratory 25 H 20 23 Rate Respiratory Rate [ Throughout] Blood Pressure 93/63 114/50 122/57 O2 Sat by Pulse 94 97 Oximetry 06/07/20 06/07/20 06/07/20 15:45 16:00 16:15 Pulse Rate 102 H 101 H 111 H Pulse Rate [ Throughout] Respiratory 25 H 27 H 30 H Rate Respiratory Rate [ Throughout] Blood Pressure 118/66 111/57 111/55 O2 Sat by Pulse 94 92 84 Oximetry 06/07/20 06/07/20 06/07/20 16:30 16:46 17:00 Pulse Rate 107 H 96 H 93 H Pulse Rate [ Throughout] Respiratory 29 H 18 23 Rate Respiratory Rate [ Throughout] Blood Pressure 111/55 111/55 111/55 O2 Sat by Pulse 85 100 100 Oximetry 06/07/20 06/07/20 06/07/20 17:16 17:30 17:46 Pulse Rate 92 H 92 H 90 Pulse Rate [ Throughout] Respiratory 19 21 23 Rate Respiratory Rate [ Throughout] Blood Pressure 111/55 111/55 111/55 O2 Sat by Pulse 100 99 99 Oximetry 06/07/20 06/07/20 06/07/20 18:00 18:16 18:30 Pulse Rate 89 90 91 H Pulse Rate [ Throughout] Respiratory 21 25 H 21 Rate Respiratory Rate [ Throughout] Blood Pressure 111/55 111/55 111/55 O2 Sat by Pulse 99 99 100 Oximetry 06/07/20 06/07/20 06/07/20 18:46 19:00 19:16 Pulse Rate 86 85 83 Pulse Rate [ Throughout] Respiratory 24 25 H 23 Rate Respiratory Rate [ Throughout] Blood Pressure 111/55 111/55 111/55 O2 Sat by Pulse 99 99 99 Oximetry 06/07/20 06/07/20 06/07/20 19:30 19:46 20:00 Pulse Rate 85 96 H 87 Pulse Rate [ Throughout] Respiratory 23 27 H 22 Rate Respiratory Rate [ Throughout] Blood Pressure 111/55 111/55 111/55 O2 Sat by Pulse 100 97 97 Oximetry 06/07/20 06/07/20 06/07/20 20:16 20:30 20:46 Pulse Rate 88 92 H 83 Pulse Rate [ Throughout] Respiratory 26 H 26 H 24 Rate Respiratory Rate [ Throughout] Blood Pressure 111/55 111/55 111/55 O2 Sat by Pulse 95 85 95 Oximetry 06/07/20 06/07/20 06/07/20 21:00 21:16 21:30 Pulse Rate 86 80 101 H Pulse Rate [ Throughout] Respiratory 23 24 29 H Rate Respiratory Rate [ Throughout] Blood Pressure 111/55 111/55 111/55 O2 Sat by Pulse 96 99 89 Oximetry 06/07/20 06/07/20 06/07/20 21:46 22:00 22:12 Pulse Rate 90 98 H 99 H Pulse Rate [ Throughout] Respiratory 26 H 22 31 H Rate Respiratory Rate [ Throughout] Blood Pressure 111/55 118/55 125/52 O2 Sat by Pulse 93 81 L 95 Oximetry 06/07/20 06/07/20 06/07/20 22:16 22:20 22:30 Pulse Rate 95 H 88 89 Pulse Rate [ Throughout] Respiratory 30 H 22 23 Rate Respiratory Rate [ Throughout] Blood Pressure 118/55 118/55 118/55 O2 Sat by Pulse 96 98 96 Oximetry 06/07/20 06/07/20 06/07/20 22:46 23:00 23:16 Pulse Rate 97 H 92 H 87 Pulse Rate [ Throughout] Respiratory 23 26 H 28 H Rate Respiratory Rate [ Throughout] Blood Pressure 118/55 126/54 126/54 O2 Sat by Pulse 95 95 95 Oximetry 06/07/20 06/07/20 06/08/20 23:30 23:46 00:00 Pulse Rate 87 86 80 Pulse Rate [ Throughout] Respiratory 23 25 H 23 Rate Respiratory Rate [ Throughout] Blood Pressure 126/54 126/54 124/64 O2 Sat by Pulse 98 96 98 Oximetry 06/08/20 06/08/20 06/08/20 00:16 00:30 00:46 Pulse Rate 84 89 92 H Pulse Rate [ Throughout] Respiratory 26 H 17 32 H Rate Respiratory Rate [ Throughout] Blood Pressure 124/64 124/64 124/64 O2 Sat by Pulse 94 94 90 Oximetry 06/08/20 06/08/20 06/08/20 01:00 01:16 01:30 Pulse Rate 80 84 84 Pulse Rate [ Throughout] Respiratory 18 30 H 28 H Rate Respiratory Rate [ Throughout] Blood Pressure 125/64 125/64 125/64 O2 Sat by Pulse 98 92 94 Oximetry 06/08/20 06/08/20 06/08/20 02:00 03:00 04:00 Pulse Rate 79 78 Pulse Rate [ Throughout] Respiratory 20 19 Rate Respiratory Rate [ Throughout] Blood Pressure 125/66 129/66 124/65 O2 Sat by Pulse 93 93 99 Oximetry 06/08/20 06/08/20 06/08/20 05:00 06:00 07:00 Pulse Rate 83 82 79 Pulse Rate [ Throughout] Respiratory 13 19 15 Rate Respiratory Rate [ Throughout] Blood Pressure 116/57 121/57 115/70 O2 Sat by Pulse 95 96 89 Oximetry 06/08/20 06/08/20 06/08/20 07:51 08:00 09:00 Pulse Rate 87 83 Pulse Rate [ Throughout] Respiratory 15 24 22 Rate Respiratory Rate [ Throughout] Blood Pressure 111/61 110/57 O2 Sat by Pulse 89 90 94 Oximetry 06/08/20 06/08/20 06/08/20 10:00 11:00 12:00 Pulse Rate 92 H 79 113 H Pulse Rate [ Throughout] Respiratory 29 H 25 H 38 H Rate Respiratory Rate [ Throughout] Blood Pressure 127/67 118/60 154/65 O2 Sat by Pulse 90 94 77 L Oximetry 06/08/20 06/08/20 06/08/20 13:00 14:00 15:00 Pulse Rate 87 122 H 87 Pulse Rate [ Throughout] Respiratory 30 H 35 H 27 H Rate Respiratory Rate [ Throughout] Blood Pressure 118/63 118/63 120/68 O2 Sat by Pulse 89 82 L 95 Oximetry 06/08/20 06/08/20 15:40 15:50 Pulse Rate 87 97 H Pulse Rate [ Throughout] Respiratory 28 H 20 Rate Respiratory Rate [ Throughout] Blood Pressure 120/68 120/68 O2 Sat by Pulse 98 Oximetry - Reevaluation(s) Reevaluation #1: 06/07/20 12:49 Discussed with hospital physician, Dr. Castellon, he will admit the patient to the medical service. Reevaluation #2: 06/07/20 14:15 CBC reviewed and appreciated. Thrombocytopenia it may be secondary to chemotherapy or may be a laboratory error. We will repeat the CBC to verify. ED Medical Decision Making - Lab Data Result diagrams: 06/09/20 14:06 06/08/20 04:53 Lab Results 06/07/20 06/07/20 06/07/20 Range/Units 12:13 12:13 12:13 WBC 4.8 (4.5-11.0) K/mm3 RBC 3.77 (3.65-5.03) M/mm3 Hgb 11.7 L (11.8-15.2) gm/dl Hct 34.3 L (35.5-45.6) % MCV 91 (84-94) fl MCH 31 (28-32) pg MCHC 34 (32-34) % RDW 15.0 (13.2-15.2) % Plt Count 6 L* (140-440) K/mm3 Lymph % (Auto) [employer] [place] % (Auto) [employer] Eos % (Auto) [employer] Baso % (Auto) [employer] Lymph # [employer] [place] # [employer] Eos # [employer] Baso # [employer] Seg Neutrophils % [employer] Seg Neutrophils # [employer] PT 14.1 (12.2-14.9) Sec. INR 1.07 (0.87-1.13) D-Dimer 742.10 H (0-234) ng/mlDDU Sodium 136 L (137-145) mmol/L Potassium 4.2 (3.6-5.0) mmol/L Chloride 98.7 (98-107) mmol/L Carbon Dioxide 26 (22-30) mmol/L Anion Gap 16 mmol/L BUN 21 H (9-20) mg/dL Creatinine 0.9 (0.8-1.5) mg/dL Estimated GFR > 60 ml/min BUN/Creatinine Ratio 23 % Glucose 138 H (75-100) mg/dL Lactic Acid (0.7-2.0) mmol/L Calcium 8.4 (8.4-10.2) mg/dL Magnesium 2.70 H (1.7-2.3) mg/dL Ferritin (13.0-400.0) ng/mL Total Bilirubin 0.50 (0.1-1.2) mg/dL AST 80 H (5-40) units/L ALT 71 H (7-56) units/L Alkaline Phosphatase 90 (35-129) units/L Lactate Dehydrogenase (91-180) units/L Total Creatine Kinase 104 (55-170) units/L C-Reactive Protein (0.00-1.30) mg/dL Total Protein 6.1 L (6.3-8.2) g/dL Albumin 3.2 L (3.9-5) g/dL Albumin/Globulin Ratio 1.1 % Procalcitonin (<0.15) ng/mL Blood Type Antibody Screen 06/07/20 06/07/20 06/07/20 Range/Units 12:13 12:13 12:13 WBC (4.5-11.0) K/mm3 RBC (3.65-5.03) M/mm3 Hgb (11.8-15.2) gm/dl Hct (35.5-45.6) % MCV (84-94) fl MCH (28-32) pg MCHC (32-34) % RDW (13.2-15.2) % Plt Count (140-440) K/mm3 Lymph % (Auto) [place] % (Auto) Eos % (Auto) Baso % (Auto) Lymph # [place] # Eos # Baso # Seg Neutrophils % Seg Neutrophils # PT (12.2-14.9) Sec. INR (0.87-1.13) D-Dimer (0-234) ng/mlDDU Sodium (137-145) mmol/L Potassium (3.6-5.0) mmol/L Chloride (98-107) mmol/L Carbon Dioxide (22-30) mmol/L Anion Gap mmol/L BUN (9-20) mg/dL Creatinine (0.8-1.5) mg/dL Estimated GFR ml/min BUN/Creatinine Ratio % Glucose 139 H (75-100) mg/dL Lactic Acid 1.70 (0.7-2.0) mmol/L Calcium (8.4-10.2) mg/dL Magnesium (1.7-2.3) mg/dL Ferritin 397.3 (13.0-400.0) ng/mL Total Bilirubin (0.1-1.2) mg/dL AST (5-40) units/L ALT (7-56) units/L Alkaline Phosphatase (35-129) units/L Lactate Dehydrogenase 369 H (91-180) units/L Total Creatine Kinase (55-170) units/L C-Reactive Protein 6.70 H (0.00-1.30) mg/dL Total Protein (6.3-8.2) g/dL Albumin (3.9-5) g/dL Albumin/Globulin Ratio % Procalcitonin (<0.15) ng/mL Blood Type Antibody Screen 06/07/20 06/07/20 Range/Units 12:13 12:16 WBC (4.5-11.0) K/mm3 RBC (3.65-5.03) M/mm3 Hgb (11.8-15.2) gm/dl Hct (35.5-45.6) % MCV (84-94) fl MCH (28-32) pg MCHC (32-34) % RDW (13.2-15.2) % Plt Count (140-440) K/mm3 Lymph % (Auto) [place] % (Auto) Eos % (Auto) Baso % (Auto) Lymph # [place] # Eos # Baso # Seg Neutrophils % Seg Neutrophils # PT (12.2-14.9) Sec. INR (0.87-1.13) D-Dimer (0-234) ng/mlDDU Sodium (137-145) mmol/L Potassium (3.6-5.0) mmol/L Chloride (98-107) mmol/L Carbon Dioxide (22-30) mmol/L Anion Gap mmol/L BUN (9-20) mg/dL Creatinine (0.8-1.5) mg/dL Estimated GFR ml/min BUN/Creatinine Ratio % Glucose (75-100) mg/dL Lactic Acid (0.7-2.0) mmol/L Calcium (8.4-10.2) mg/dL Magnesium (1.7-2.3) mg/dL Ferritin (13.0-400.0) ng/mL Total Bilirubin (0.1-1.2) mg/dL AST (5-40) units/L ALT (7-56) units/L Alkaline Phosphatase (35-129) units/L Lactate Dehydrogenase (91-180) units/L Total Creatine Kinase (55-170) units/L C-Reactive Protein (0.00-1.30) mg/dL Total Protein (6.3-8.2) g/dL Albumin (3.9-5) g/dL Albumin/Globulin Ratio % Procalcitonin 0.24 (<0.15) ng/mL Blood Type A POSITIVE Antibody Screen Negative - Radiology Data Radiology results: report reviewed, image reviewed Print Report Referring Physician: CARLA VILLAGOMEZ Patient Name: PADMAJA MCCALLUM Date of : 1940 Sex: Male Report Date: 2020-06-07 Report Status: Finalized Findings [facility] [address] [place] [address] X Ray Report Signed Patient: PADMAJA MCCALLUM MR#: [id number] : 1940 Acct:[id number] Age/Sex: 79 / M ADM Date: 06/07/20 Loc: ED Attending Dr: Ordering Physician: CARLA VILLAGOMEZ MD Date of Service: 06/07/20 Procedure(s): XR chest 1V ap Accession Number(s): [id number] cc: CARLA VILLAGOMEZ MD Fluoro Time In Minutes: CHEST 1 VIEW INDICATION / CLINICAL INFORMATION: dyspnea. COMPARISON: 12/06/2019 FINDINGS: SUPPORT DEVICES: None. HEART / MEDIASTINUM: No significant abnormality. LUNGS / PLEURA: Bilateral interstitial and airspace disease has worsened since 12/06/2019 No pneumothorax. ADDITIONAL FINDINGS: No significant additional findings. IMPRESSION: Bilateral airspace and interstitial disease has worsened since 12/06/2019. Signer Name: Sundeep Branch MD FACR Signed: 06/07/2020 12:03 PM Workstation Name: [id number] Transcribed By: MS Dictated By: Sundeep Branch MD Electronically Authenticated By: Sundeep Branch MD Signed Date/Time: 06/07/20 1203 DD/ 1202 - Medical Decision Making Differential diagnosis, including but not limited to: COPD, pulmonary fibrosis, pneumonia, COVID-19 Assessment and plan: 79-year-old gentleman with known history of pulmonary fibrosis/COPD, lung cancer, who is on systemic anticoagulation, with cough, wheezing and hypoxia, suspect exacerbation of underlying lung disease. We have recommended admission to the medical service for supportive care. Laboratory studies pending, patient will be placed in COVID pathway to exclude COVID this patient presented during the pandemic. Discussed plan of care with the patient, who verbalized understanding, and who is amenable to hospitalization for the aforementioned. As a courtesy, I have placed an infectious disease consult, we will defer to the inpatient team to follow-up their recommendations. As a courtesy, I contacted his covering central stores attendant, Dr. Anant Donovan, discussed the patient's history, physical, and pertinent imaging studies which have resulted at this point in time. He agrees with plan of care for admission, his group will follow in consultation. Plan is to admit the patient to the medical service after initial diagnostics have resulted. Critical Care Time: Yes Critical care time in (mins) excluding proc time.: 35 Critical care attestation.: If time is entered above; I have spent that time in minutes in the direct care of this critically ill patient, excluding procedure time. ED Disposition Clinical Impression: Hypoxia, COPD with exacerbation, Suspected 2019 novel coronavirus infection, Anticoagulant long-term use Disposition: OP ADMIT IP TO THIS HOSP Is pt being admited?: Yes Does the pt Need Aspirin: No Condition: Serious
--- NOTE | 2020-06-07 12:07 | XRay Report ---
CHEST 1 VIEW INDICATION / CLINICAL INFORMATION: dyspnea. COMPARISON: 12/06/2019 FINDINGS: SUPPORT DEVICES: None. HEART / MEDIASTINUM: No significant abnormality. LUNGS / PLEURA: Bilateral interstitial and airspace disease has worsened since 12/06/2019 No pneumotho rax. ADDITIONAL FINDINGS: No significant additional findings. IMPRESSION: Bilateral airspace and interstitial disease has worsened since 12/06/2019. Signer Name: Sundeep Branch MD FACR Signed: 06/07/2020 12:03 PM Workstation Name: [id number]
[2020-06-07] MEDS ORDERED: AZITHROMYCIN 500 MG in SODIUM CHLORIDE 0.9% 250ML 250 ML IV ONE (12:11)
[2020-06-07] MEDS ORDERED: cefTRIAXone/NS 1 GM/50 ML 1 GM/50 ML BAG IV ONE ×2 (12:11→13:12)
[2020-06-07] MEDS ORDERED: SODIUM CHLORIDE 0.9% 500 ML 500 ML IV ONE (12:12)
[2020-06-07] MEDS ORDERED: ALBUTEROL 2.5 MG/3 ML NEBU IH ONE ×2 (12:18→14:34)
[2020-06-07] MEDS ORDERED: IPRATROPIUM 0.02% NEBU 2.5 ML IH ONE ×2 (12:18→14:34)
--- NOTE | 2020-06-07 12:52 | History and Physical Report ---
History of Present Illness Chief complaint: I am having a problem breathing History of present illness: 79-year-old male with OA, Nicotine Dependence, COPD, HTN, Atrial Fib on Therapeutic Anticoagulation, Lung Cancer s/p radiation therapy, currently undergoing chemotherapy presents to ED for evaluation. Pt states that he has experienced shortness of breath, generalized weakness over the past 3 days with persistently worsening symptoms over the same timeframe. EMS was notified and upon arrival the patient was found to be in distress, using accessory muscles to breathe with a pulse oximetry in the 50s. Patient placed on nonrebreather oxygen and transported to [facility] for further care and evaluation of the aforemen tioned symptoms. Patient seen and evaluated in the emergency department. Lab and imaging studies reviewed. Patient underwent chest x-ray and was found to have bilateral pneumonia. Patient also found to have pulse oximetry in the 70s while on room air which is consistent with acute hypoxemic respiratory failure. Patient admitted to IMCU and initiated on pneumonia protocol as well as COVID-19 protocol due to increased risk of decompensation. Infectious disease service consulted in the emergency department. Coronavirus PCR ordered by emergency department staff and is pending at the time of admission. Patient denies fever, chills, chest pain, palpitations, bright red blood per rectum, productive cough, skin rash, unintentional weight loss, night sweats, recent ill contacts, or known exposure to COVID-19. Prior admission on 12/06/2019 reviewed. All listed medication reconciled at time of admission. Advanced care planning conducted in ED. Patient acknowledges understanding and agreement with care plan. Past History Past Medical History: atrial fib, cancer, COPD, hypertension, other (See HPI) Past Surgical History: Other (Back surgery) Social history: , lives with family Family history: hypertension Medications and Allergies Allergies Allergy/AdvReac Type Severity Reaction Status Date / Time No Known Allergies Allergy Verified 01/17/17 09:19 Home Medications Medication Instructions Recorded Confirmed Last Taken Type Tamsulosin HCl 0.4 mg PO DAILY 01/17/17 12/06/19 01/16/17 History Apixaban [Eliquis] 5 mg PO Q12HR #60 tablet 12/08/19 Unknown Rx dilTIAZem [Cardizem] 30 mg PO Q6HR #120 tablet 12/08/19 Unknown Rx Active Meds: Active Medications Azithromycin 500 mg/ Sodium (Chloride) 250 mls @ 250 mls/hr IV ONCE ONE; Ct col Stop: 06/07/20 13:10 Review of Systems Constitutional: no weight loss, no weight gain, no fever, no chills Ears, nose, mouth and throat: no ear pain, no ear discharge, no nose pain, no nasal congestion Cardiovascular: shortness of breath, no chest pain, no orthopnea, no palpitations Respiratory: no cough, no cough with sputum, no excessive sputum, no hemoptysis Gastrointestinal: no abdominal pain, no nausea, no vomiting, no diarrhea Genitourinary Male: no hematuria, no flank pain, no discharge, no urinary frequency, no urinary hesitancy Rectal: no pain, no incontinence, no bleeding Musculoskeletal: no neck stiffness, no neck pain, no shooting arm pain, no arm numbness/tingling, no low back pain, no shooting leg pain Integumentary: no rash, no pruritis, no redness, no wounds, no jaundice Neurological: no head injury, no transient paralysis, no paralysis, no weakness, no parathesias, no tingling, no seizures, no tremors Psychiatric: no anxiety, no change in sleep habits, no sleep disturbances, no hypersomnia, no change in libido, no suicidal ideation, no disorientation Endocrine: no cold intolerance, no heat intolerance, no excessive thirst, no polydipsia, no polyuria, no nocturia, no excessive sweating Hematologic/Lymphatic: no easy bruising, no easy bleeding, no lymphadenopathy, no lymphedema Allergic/Immunologic: no urticaria, no allergic rhinitis, no wheezing, no persistent infections, no anaphylaxis, no angioedema Exam - Constitutional General appearance: Present: mild distress, cachectic - EENT Eyes: Present: PERRL ENT: hearing intact, clear oral mucosa - Neck Neck: Present: supple, normal ROM - Respiratory Respiratory effort: labored, accessory muscle use, stridor Respiratory: bilateral: diminished, rhonchi - Cardiovascular Heart Sounds: Present: S1 & S2. Absent: rub, click - Extremities Extremities: pulses symmetrical, No edema Peripheral Pulses: within normal limits - Abdominal General gastrointestinal: Present: soft, non-tender, non-distended, normal bowel sounds Male genitourinary: Present: normal - Integumentary Integumentary: Present: clear, warm, dry - Musculoskeletal Musculoskeletal: gait normal, strength equal bilaterally - Psychiatric Psychiatric: appropriate mood/affect, intact judgment & insight - Neurologic Neurologic: CNII-XII intact, moves all extremities Results - Labs CBC & Chem 7: 06/07/20 15:59 06/07/20 12:13 Assessment and Plan - Patient Problems (1) Acute hypoxemic respiratory failure Current Visit: Yes Status: Acute Plan to address problem: Chest x-ray, supplemental oxygen, pulse oximetry, nebulizer therapy, prone positioning while in bed, early ambulation, out of bed to chair PRN. (2) Pneumonia Current Visit: Yes Status: Acute Qualifiers: Laterality: bilateral Plan to address problem: Pneumonia protocol: Chest x-ray, CBC, CMP, supplemental oxygen, nebulizer ther apy, blood culture, IV antibiotic therapy. (3) Suspected 2019 novel coronavirus infection Current Visit: Yes Status: Acute Plan to address problem: Coronavirus protocol: Infectious disease service consulted, IV steroid therapy, prone positioning while in bed, contact precautions, isolation precautions. (4) Lung cancer Current Visit: Yes Status: Acute Plan to address problem: Outpatient oncology follow-up, supportive care. Patient is status post chemotherapy. (5) Atrial fibrillation Current Visit: Yes Status: Acute Plan to address problem: Rate control, continue therapeutic anticoagulation with Eliquis, supportive care. Remote telemetry monitoring (6) Hypertension Current Visit: No Status: Acute Qualifiers: Hypertension type: essential hypertension Qualified Code(s): I10 - E ssential (primary) hypertension Plan to address problem: Monitor blood pressure every shift, continue medical management. (7) Nicotine dependence Current Visit: No Status: Acute Qualifiers: Nicotine product type: cigarettes Substance use status: in withdrawal Qualified Code(s): F17.213 - Nicotine dependence, cigarettes, with withdrawal Plan to address problem: Smoking cessation counseling, supportive care, behavior change counseling, +15 minutes. (8) DVT prophylaxis Current Visit: Yes Status: Acute Plan to address problem: SCD to bilateral lower extremities while in bed, continue therapeutic anticoagulation. (9) Advance care planning Current Visit: No Status: Acute Plan to address problem: Disease education conducted, patient prognosis discussed, patient is full code, patient knowledges understanding and agreement with care plan, +30 minutes.
[2020-06-07] MEDS ORDERED: ACETAMINOPHEN 325 MG TAB PO PRN (12:57)
[2020-06-07 13:05] LABS: Alanine Aminotransferase 71 units/L (7-56); Albumin 3.2 g/dL (3.9-5); BUN/Creatinine Ratio 23; Blood Urea Nitrogen 21 mg/dL (9-20); Calcium 8.4 mg/dL (8.4-10.2); Hemolysis Index 12
[2020-06-07] MEDS ORDERED: SODIUM CHLORIDE 0.9% 500 ML 500 ML ONE (13:12)
[2020-06-07 13:16] LABS: INR 1.07 (0.87-1.13)
[2020-06-07 13:19] LABS: C-Reactive Protein 6.7 mg/dL (0.00-1.30)
[2020-06-07 14:01] LABS: Hematocrit 34.3 % (35.5-45.6); Hemoglobin 11.7 gm/dl (11.8-15.2); Mean Corpuscular HGB Conc 34 % (32-34); Mean Corpuscular Volume 91 fl (84-94); Red Blood Count 3.77 M/mm3 (3.65-5.03)
[2020-06-07 14:11] LABS: Platelet Count 6 K/mm3 (140-440)
[2020-06-07 15:05] LABS: Basophils % (Manual) 0 % (0.0-1.8); Total Cells Counted 100
[2020-06-07 15:06] LABS: Platelet Estimate Consistent w Auto; RBC Morphology Normal
[2020-06-07 16:12] LABS: Hematocrit 31.1 % (35.5-45.6); Hemoglobin 10.5 gm/dl (11.8-15.2); Mean Corpuscular HGB Conc 34 % (32-34); Mean Corpuscular Volume 92 fl (84-94); Red Blood Count 3.39 M/mm3 (3.65-5.03); Red Cell Distribution Width 15.2 % (13.2-15.2)
[2020-06-07 16:37] LABS: Platelet Count 6 K/mm3 (140-440)
--- NOTE | 2020-06-07 17:35 | Consultation ---
History of Present Illness - Reason for Consult Consult date: 06/07/20 - History of Present Illness 79-year-old man past medical history arthritis, nicotine dependence, COPD, A. fib, lung cancer status post radiation therapy currently on chemotherapy admitted to the hospital complaining of shortness of breath, weakness. He notes symptoms began approximately 3 days prior to admission, and have been progressively worse since that time. EMS was called, and he was found to be in distress and use accessory muscles to breathe. He was found to be severely hypoxic in the 50s. He was then transported to the hospital for evaluation. No documented temperatures at this time, currently tachycardic and tachypneic. Currently seeing ceftriaxone azithromycin, methylprednisolone. White count is normal. Blood cultures are currently pending. Procalcitonin is 0.24. Imaging personally reviewed: Chest x-ray: Bilateral airspace disease Review of Systems: Bold if positive, otherwise negative General: fevers, chills, rigors HEENT: visual disturbance, diplopia, eye pain Respiratory: cough, sputum, hemoptysis, shortness of breath Cardiovascular: chest pain, syncope Gastrointestinal: nausea, vomiting, diarrhea, abdominal pain Genitourinary: dysuria, hematuria, flank pain Musculoskeletal: neck pain, back pain, joint pain, edema Neurologic: headaches, seizures Hematologic: easy bruising or bleeding Endocrine: night sweats, acute weight loss Skin: rash, jaundice, redness Psychiatric: suicidal, homicidal ideation Past History Past Medical History: atrial fib, cancer, COPD, hypertension, other (See HPI) Past Surgical History: Other (Back surgery) Social history: , lives with family Family history: hypertension Medications and Allergies Allergies Allergy/AdvReac Type Severity Reaction Status Date / Time No Known Allergies Allergy Verified 01/17/17 09:19 Home Medications Medication Instructions Recorded Confirmed Last Taken Type Tamsulosin HCl 0.4 mg PO DAILY 01/17/17 12/06/19 01/16/17 History Apixaban [Eliquis] 5 mg PO Q12HR #60 tablet 12/08/19 Unknown Rx dilTIAZem [Cardizem] 30 mg PO Q6HR #120 tablet 12/08/19 Unknown Rx Active Meds: Active Medications Acetaminophen (Tylenol) 650 mg PO Q6H PRN PRN Reason: Pain MILD(1-3)/Fever >100.5/CANALES Apixaban (Eliquis) 5 mg PO Q12HR SANDRA; Protocol Diltiazem HCl (Cardizem) 30 mg PO Q6HR SANDRA Ceftriaxone Sodium (Rocephin/Ns 2 Gm/100 Ml) 2 gm in 100 mls @ 200 mls/hr IV Q24HR [facility]DRA; Protocol Azithromycin 500 mg/ Sodium (Chloride) 250 mls @ 250 mls/hr IV Q24HR SANDRA; Pro tocol Methylprednisolone Sodium Succinate (Solu-Medrol) 40 mg IV Q8HR SANDRA Sodium Chloride (Sodium Chloride Flush Syringe 10 Ml) 10 ml IV BID SANDRA Sodium Chloride (Sodium Chloride Flush Syringe 10 Ml) 10 ml IV PRN PRN PRN Reason: LINE FLUSH Tamsulosin HCl (Flomax) 0.4 mg PO DAILY [facility]DRA Physical Examination - Physical Exam Narrative exam: Physical exam deferred due to PPE conservation strategy. Please refer to primary team's note. - Constitutional Vitals: Vital Signs Temp Pulse Resp BP Pulse Ox 92 H 20 89/61 90 06/07/20 14:39 06/07/20 14:39 06/07/20 14:16 06/07/20 14:16 Results - Labs CBC & Chem 7: 06/07/20 15:59 06/07/20 12:13 Labs: Abnormal lab results 06/07/20 06/07/20 06/07/20 Range/Units 12:13 12:13 12:13 RBC (3.65-5.03) M/mm3 Hgb 11.7 L (11.8-15.2) gm/dl Hct 34.3 L (35.5-45.6) % Plt Count 6 L* (140-440) K/mm3 Seg Neuts % (Manual) 93.0 H (40.0-70.0) % Lymphocytes % (Manual) 4.0 L (13.4-35.0) % Lymphocytes # (Manual) 0.2 L (1.2-5.4) K/mm3 D-Dimer 742.10 H (0-234) ng/mlDDU Sodium 136 L (137-145) mmol/L BUN 21 H (9-20) mg/dL Glucose 138 H (75-100) mg/dL Magnesium 2.70 H (1.7-2.3) mg/dL AST 80 H (5-40) units/L ALT 71 H (7-56) units/L Lactate Dehydrogenase (91-180) units/L C-Reactive Protein (0.00-1.30) mg/dL Total Protein 6.1 L (6.3-8.2) g/dL Albumin 3.2 L (3.9-5) g/dL 06/07/20 06/07/20 Range/Units 12:13 15:59 RBC 3.39 L (3.65-5.03) M/mm3 Hgb 10.5 L (11.8-15.2) gm/dl Hct 31.1 L (35.5-45.6) % Plt Count 6 L* (140-440) K/mm3 Seg Neuts % (Manual) (40.0-70.0) % Lymphocytes % (Manual) (13.4-35.0) % Lymphocytes # (Manual) (1.2-5.4) K/mm3 D-Dimer (0-234) ng/mlDDU Sodium (137-145) mmol/L BUN (9-20) mg/dL Glucose 139 H (75-100) mg/dL Magnesium (1.7-2.3) mg/dL AST (5-40) units/L ALT (7-56) units/L Lactate Dehydrogenase 369 H (91-180) units/L C-Reactive Protein 6.70 H (0.00-1.30) mg/dL Total Protein (6.3-8.2) g/dL Albumin (3.9-5) g/dL Assessment and Plan Cultures: Blood culture 06/07/2020 pending A/P: 79-year-old man past medical history arthritis, nicotine dependence, COPD, A. fib, lung cancer status post radiation therapy currently on chemotherapy admitted with pneumonia, possible COVID-19 #Acute hypoxemic respiratory failure: Likely secondary to COVID-19 infection, pending testing #Bilateral pneumonia: Likely secondary COVID-19 #COPD: Associated with worse outcomes with COVID-19 #Lung cancer, currently on chemotherapy: High risk for decompensation. Recs: -Continue steroids per pulmonary -Follow-up COVID-19 testing -If COVID-19 testing positive, would stop empiric antibiotics in the basis of normal procalcitonin and white count. -Further COVID-19 specific recommendations pending positive testing Thank you for the consult, we will continue to follow. Immanuel Carrillo MD [facility] ([facility]) M: [phone] O: [phone] F: [phone]
[2020-06-07] MEDS ORDERED: dilTIAZem 30 MG TAB ONE (19:47)
[2020-06-07] MEDS: dilTIAZem 30 MG TAB PO SCH (19:50)
[2020-06-07] MEDS ORDERED: methylPREDNISolone Sod Succinate 40 MG/1 ML INJ ONE (23:20)
[2020-06-07] MEDS ORDERED: APIXABAN 5 MG TAB ONE (23:21)
[2020-06-07] MEDS: methylPREDNISolone Sod Succinate 40 MG/1 ML INJ IV SCH (23:31)
[2020-06-07] MEDS: APIXABAN 5 MG TAB PO SCH (23:32)
[2020-06-08] MEDS: dilTIAZem 30 MG TAB PO SCH ×3 (05:11→14:31)
[2020-06-08 05:34] LABS: Hematocrit 28.9 % (35.5-45.6); Hemoglobin 9.7 gm/dl (11.8-15.2); Mean Corpuscular HGB Conc 34 % (32-34); Mean Corpuscular Volume 91 fl (84-94); Red Blood Count 3.17 M/mm3 (3.65-5.03)
[2020-06-08 05:42] LABS: Platelet Count 11 K/mm3 (140-440)
[2020-06-08 05:54] LABS: Alanine Aminotransferase 65 units/L (7-56); Albumin 2.9 g/dL (3.9-5); BUN/Creatinine Ratio 28; Blood Urea Nitrogen 22 mg/dL (9-20); Calcium 8.3 mg/dL (8.4-10.2); Hemolysis Index 1
[2020-06-08] MEDS ORDERED: dilTIAZem 30 MG TAB ONE (06:19)
[2020-06-08] MEDS ORDERED: methylPREDNISolone Sod Succinate 40 MG/1 ML INJ ONE (06:19)
[2020-06-08] MEDS: methylPREDNISolone Sod Succinate 40 MG/1 ML INJ IV SCH ×2 (06:21→21:12)
[2020-06-08 10:18] LABS: Band Neutrophils # (Manual) 0.2 K/mm3; Basophils % (Manual) 0 % (0.0-1.8); Eosinophils % (Manual) 0 % (0.0-4.3); Monocytes % (Manual) 0 % (0.0-7.3); Total Cells Counted 100
[2020-06-08 10:20] LABS: Ovalocytes Few; Platelet Estimate Consistent w Auto
[2020-06-08] MEDS ORDERED: cefTRIAXone/NS 2 GM/100 ML 2 GM/100 ML BAG IV ONE (10:39)
[2020-06-08] MEDS: cefTRIAXone/NS 2 GM/100 ML 2 GM/100 ML BAG IV SCH (10:40)
[2020-06-08] MEDS: AZITHROMYCIN 500 MG in SODIUM CHLORIDE 0.9% 250ML 250 ML IV SCH (12:16)
--- NOTE | 2020-06-08 12:57 | Consultation ---
History of Present Illness Consult date: 06/08/20 Reason for consult: dyspnea, cough History of present illness: Mr. Angulo is a 79-year-old white male with known history of advanced chronic obstructive pulmonary disease and history of lung cancer diagnosed in 2017 currently on third chemotherapy. Last chemotherapy was just recently received. He presented to the hospital with less than a week history increasing shortness of breath, chest tightness and cough which was nonproductive but he did cough a small amount of blood today. Patient has low platelets and has been on anticoagulants. Patient is not on home oxygen therapy. He reports a red rash in the lower extremity which he attributes to his chemotherapy. Past History Past Medical History: atrial fib, cancer, COPD, hypertension, other (See HPI) Past Surgical History: Other (Back surgery) Social history: , lives with family Family history: hypertension Medications and Allergies Allergies Allergy/AdvReac Type Severity Reaction Status Date / Time No Known Allergies Allergy Verified 01/17/17 09:19 Home Medications Medication Instructions Recorded Confirmed Last Taken Type Tamsulosin HCl 0.4 mg PO DAILY 01/17/17 12/06/19 01/16/17 History Apixaban [Eliquis] 5 mg PO Q12HR #60 tablet 12/08/19 Unknown Rx dilTIAZem [Cardizem] 30 mg PO Q6HR #120 tablet 12/08/19 Unknown Rx Active Meds: Active Medications Acetaminophen (Tylenol) 650 mg PO Q6H PRN PRN Reason: Pain MILD(1-3)/Fever >100.5/CANALES Apixaban (Eliquis) 5 mg PO Q12HR SANDRA; Protocol Last Admin: 06/07/20 23:32 Dose: 5 mg Documented by: Diltiazem HCl (Cardizem) 30 mg PO Q6HR SANDRA Last Admin: 06/08/20 06:21 Dose: 30 mg Documented by: Ceftriaxone Sodium (Rocephin/Ns 2 Gm/100 Ml) 2 gm in 100 mls @ 200 mls/hr IV Q24HR SANDRA; Protocol Last Admin: 06/08/20 10:40 Dose: 200 mls/hr Documented by: Azithromycin 500 mg/ Sodium (Chloride) 250 mls @ 250 mls/hr IV Q24HR SANDRA; Protocol Last Admin: 06/08/20 12:16 Dose: 250 mls/hr Documented by: Methylprednisolone Sodium Succinate (Solu-Medrol) 40 mg IV Q8HR [facility] Last Admin: 06/08/20 06:21 Dose: 40 mg Documented by: Sodium Chloride (Sodium Chloride Flush Syringe 10 Ml) 10 ml IV BID [facility] Last Admin: 06/08/20 10:48 Dose: 10 ml Documented by: Sodium Chloride (Sodium Chloride Flush Syringe 10 Ml) 10 ml IV PRN PRN PRN Reason: LINE FLUSH Tamsulosin HCl (Flomax) 0.4 mg PO DAILY [facility] Review of Systems All systems: negative Cardiovascular: chest pain, shortness of breath, dyspnea on exertion Respiratory: cough, cough with sputum, hemoptysis, shortness of breath, dyspnea on exertion Integumentary: rash Physical Examination Vital signs: Vital Signs Pulse Resp 88 17 06/07/20 11:41 06/07/20 11:41 General appearance: no acute distress Eyes: non-icteric ENT: oropharynx moist Neck: supple Effort: mildly labored Ascultation: Bilateral: diminished breath sounds, rales Cardiovascular: regular rate and rhythm (Tachycardia noted) Gastrointestinal: normoactive bowel sounds, soft, non-tender, non-distended Integumentary: other (Petechial rash present) Extremities: other (Early clubbing present. Petechial rash lower extremities) Musculoskeletal: no deformities Gait: other (Not examined) normal mental status, non-focal exam Results - Laboratory Findings CBC and BMP: 06/08/20 04:53 06/08/20 04:53 PT/INR, D-dimer PT 14.1 Sec. (12.2-14.9) 06/07/20 12:13 INR 1.07 (0.87-1.13) 06/07/20 12:13 D-Dimer 742.10 ng/mlDDU (0-234) H 06/07/20 12:13 Abnormal lab findings: Abnormal Labs 06/07/20 06/07/20 06/07/20 12:13 12:13 12:13 RBC Hgb 11.7 L Hct 34.3 L Plt Count 6 L* Seg Neuts % (Manual) 93.0 H Lymphocytes % (Manual) 4.0 L Seg Neutrophils # Man Lymphocytes # (Manual) 0.2 L D-Dimer 742.10 H Sodium 136 L BUN 21 H Glucose 138 H Calcium Magnesium 2.70 H AST 80 H ALT 71 H Lactate Dehydrogenase C-Reactive Protein Total Protein 6.1 L Albumin 3.2 L 06/07/20 06/07/20 06/08/20 12:13 15:59 04:53 RBC 3.39 L 3.17 L Hgb 10.5 L 9.7 L Hct 31.1 L 28.9 L Plt Count 6 L* 11 L* Seg Neuts % (Manual) 93.0 H Lymphocytes % (Manual) 5.0 L Seg Neutrophils # Man 8.5 H Lymphocytes # (Manual) 0.5 L D-Dimer Sodium BUN Glucose 139 H Calcium Magnesium AST ALT Lactate Dehydrogenase 369 H C-Reactive Protein 6.70 H Total Protein Albumin 06/08/20 04:53 RBC Hgb Hct Plt Count Seg Neuts % (Manual) Lymphocytes % (Manual) Seg Neutrophils # Man Lymphocytes # (Manual) D-Dimer Sodium 136 L BUN 22 H Glucose 150 H Calcium 8.3 L Magnesium AST 57 H ALT 65 H Lactate Dehydrogenase C-Reactive Protein Total Protein Albumin 2.9 L - Diagnostic Findings Chest x-ray: image reviewed (Changes of COPD diffuse interstitial fibrotic changes which appears to be much worse compared to November 2019) Assessment and Plan Impression: Acute respiratory failure COPD with exacerbation Diffuse interstitial lung disease/pulmonary fibrosis with worsening Rule out pneumonia Severe thrombocytopenia possibly related to chemotherapy History of recurrent lung cancer Rule out COVID-19 infection Hypercoagulable state. Recommendation: Initiate COVID-19 protocol with anticoagulants and steroids while awaiting call with test results. Continue with antibiotics for possible community-acquired pneumonia Continue with the steroids and and inhaled bronchodilators Continue with supplemental oxygen to maintain saturation around 90%. Consider echocardiogram to rule out congestive heart failure/pulmonary arterial hypertension Total critical care time 33 minutes
[2020-06-08] MEDS ORDERED: SODIUM CHLORIDE 0.9% 500 ML 500 ML IV ONE ×2 (13:18→18:00)
--- NOTE | 2020-06-08 13:19 | Progress Note ---
Assessment and Plan - Patient Problems (1) Acute hypoxemic respiratory failure Current Visit: Yes Status: Acute Plan to address problem: Chest x-ray, supplemental oxygen, pulse oximetry, nebulizer therapy, prone positioning while in bed, early ambulation, out of bed to chair PRN. (2) Pneumonia Current Visit: Yes Status: Acute Qualifiers: Laterality: bilateral Plan to address problem: Pneumonia protocol: Chest x-ray, CBC, CMP, supplemental oxygen, nebulizer therapy, blood culture, IV antibiotic therapy. (3) Suspected 2019 novel coronavirus infection Current Visit: Yes Status: Acute Plan to address problem: Coronavirus protocol: Infectious disease service consulted, IV steroid therapy, prone positioning while in bed, contact precautions, isolation precautions. (4) Lung cancer Current Visit: Yes Status: Acute Plan to address problem: Outpatient oncology follow-up, supportive care. Patient is status post chemotherapy. (5) Atrial fibrillation Current Visit: Yes Status: Acute Plan to address problem: Rate control, hole anticoagulation with Eliquis due to thrombocytopenia, supportive care. Remote telemetry monitoring (6) Hypertension Current Visit: No Status: Acute Qualifiers: Hypertension type: essential hypertension Qualified Code(s): I10 - Essential (primary) hypertension Plan to address problem: Monitor blood pressure every shift, continue medical management. (7) Thrombocytopenia Current Visit: Yes Status: Acute Plan to address problem: Platelet transfusion, hold anticoagulation. Suspect secondary to chemotherapy regimen. NO active bleeding at this time (8) Nicotine dependence Current Visit: No Status: Acute Qualifiers: Nicotine product type: cigarettes Substance use status: in withdrawal Qualified Code(s): F17.213 - Nicotine dependence, cigarettes, with withdrawal Plan to address problem: Smoking cessation counseling, supportive care, behavior change counseling, +15 minutes. (9) DVT prophylaxis Current Visit: Yes Status: Acute Plan to address problem: SCD to bilateral lower extremities while in bed, continue therapeutic anticoagulation. (10) Advance care planning Current Visit: No Status: Acute Plan to address problem: Disease education conducted, patient prognosis discussed, patient is full code, patient knowledges understanding and agreement with care plan, +30 minutes. History Interval history: 79 YO Male HD #2 with Covid 19 PUI, Pneumonia, Respiratory Failure, Thrombocytopenia, Atrial Fib on Therapeutic Anticoagulation, Lung Cancer s/p radiation therapy, currently undergoing chemotherapy. Pt resting in bed, Pt denies fever, chills, CP, palpitations, NVD, mucosal bleeding, or joint pain. No reported nursing events. Hospitalist Physical - Constitutional Vitals: Temp Pulse Resp BP Pulse Ox 87 24 111/61 90 06/08/20 08:00 06/08/20 08:00 06/08/20 08:00 06/08/20 08:00 General appearance: Present: mild distress, cachectic - EENT Eyes: Present: PERRL, EOM intact ENT: hearing intact - Neck Neck: Present: supple - Respiratory Respiratory: bilateral: diminished - Cardiovascular Rhythm: irregularly irregular Heart Sounds: Present: S1 & S2 - Extremities Extremities: no ischemia Peripheral Pulses: within normal limits - Abdominal General gastrointestinal: soft, non-tender, non-distended - Integumentary Integumentary: Present: clear, dry - Psychiatric Psychiatric: appropriate mood/affect, cooperative - Neurologic Neurologic: CNII-XII intact Results - Labs CBC & Chem 7: 06/08/20 04:53 06/08/20 04:53 Labs: Laboratory Last Values WBC 9.1 K/mm3 (4.5-11.0) 06/08/20 04:53 RBC 3.17 M/mm3 (3.65-5.03) L 06/08/20 04:53 Hgb 9.7 gm/dl (11.8-15.2) L 06/08/20 04:53 Hct 28.9 % (35.5-45.6) L 06/08/20 04:53 MCV 91 fl (84-94) 06/08/20 04:53 MCH 31 pg (28-32) 06/08/20 04:53 MCHC 34 % (32-34) 06/08/20 04:53 RDW 15.0 % (13.2-15.2) 06/08/20 04:53 Plt Count 11 K/mm3 (140-440) L* 06/08/20 04:53 Lymph % (Auto) [place] 06/07/20 12:13 [place] % (Auto) [place] 06/07/20 12:13 Eos % (Auto) [place] 06/07/20 12:13 Baso % (Auto) [place] 06/07/20 12:13 Lymph # [place] 06/07/20 12:13 [place] # [place] 06/07/20 12:13 Eos # [place] 06/07/20 12:13 Baso # [place] 06/07/20 12:13 Add Manual Diff Complete 06/08/20 04:53 Total Counted 100 06/08/20 04:53 Seg Neutrophils % [place] 06/08/20 04:53 Seg Neuts % (Manual) 93.0 % (40.0-70.0) H 06/08/20 04:53 Band Neutrophils % 2.0 % 06/08/20 04:53 Lymphocytes % (Manual) 5.0 % (13.4-35.0) L 06/08/20 04:53 Reactive Lymphs % (Man) 0 % 06/08/20 04:53 Monocytes % (Manual) 0 % (0.0-7.3) 06/08/20 04:53 Eosinophils % (Manual) 0 % (0.0-4.3) 06/08/20 04:53 Basophils % (Manual) 0 % (0.0-1.8) 06/08/20 04:53 Metamyelocytes % 0 % 06/08/20 04:53 Myelocytes % 0 % 06/08/20 04:53 Promyelocytes % 0 % 06/08/20 04:53 Blast Cells % 0 % 06/08/20 04:53 Nucleated RBC % Not Reportable 06/08/20 04:53 Seg Neutrophils # [place] 06/07/20 12:13 Seg Neutrophils # Man 8.5 K/mm3 (1.8-7.7) H 06/08/20 04:53 Band Neutrophils # 0.2 K/mm3 06/08/20 04:53 Lymphocytes # (Manual) 0.5 K/mm3 (1.2-5.4) L 06/08/20 04:53 Abs React Lymphs (Man) 0.0 K/mm3 06/08/20 04:53 Monocytes # (Manual) 0.0 K/mm3 (0.0-0.8) 06/08/20 04:53 Eosinophils # (Manual) 0.0 K/mm3 (0.0-0.4) 06/08/20 04:53 Basophils # (Manual) 0.0 K/mm3 (0.0-0.1) 06/08/20 04:53 Metamyelocytes # 0.0 K/mm3 06/08/20 04:53 Myelocytes # 0.0 K/mm3 06/08/20 04:53 Promyelocytes # 0.0 K/mm3 06/08/20 04:53 Blast Cells # 0.0 K/mm3 06/08/20 04:53 WBC Morphology Not Reportable 06/08/20 04:53 WBC Morphology TNR 06/08/20 04:53 Hypersegmented Neuts Not Reportable 06/08/20 04:53 Hyposegmented Neuts Not Reportable 06/08/20 04:53 Hypogranular Neuts Not Reportable 06/08/20 04:53 Smudge Cells Not Reportable 06/08/20 04:53 Toxic Granulation Not Reportable 06/08/20 04:53 Toxic Vacuolation Not Reportable 06/08/20 04:53 Dohle Bodies Not Reportable 06/08/20 04:53 Pel[place]-Huet Anomaly Not Reportable 06/08/20 04:53 Manuel Rods Not Reportable 06/08/20 04:53 Platelet Estimate Consistent w auto 06/08/20 04:53 Clumped Platelets Not Reportable 06/08/20 04:53 Plt Clumps, EDTA Not Reportable 06/08/20 04:53 Large Platelets Not Reportable 06/08/20 04:53 Giant Platelets Not Reportable 06/08/20 04:53 Platelet Satelliting Not Reportable 06/08/20 04:53 Plt Morphology Comment Not Reportable 06/08/20 04:53 RBC Morphology Not Reportable 06/08/20 04:53 Dimorphic RBCs Not Reportable 06/08/20 04:53 Polychromasia Not Reportable 06/08/20 04:53 Hypochromasia Not Reportable 06/08/20 04:53 Poikilocytosis Not Reportable 06/08/20 04:53 Anisocytosis Not Reportable 06/08/20 04:53 Microcytosis Not Reportable 06/08/20 04:53 Macrocytosis Not Reportable 06/08/20 04:53 Spherocytes Not Reportable 06/08/20 04:53 Pappenheimer Bodies Not Reportable 06/08/20 04:53 Sickle Cells Not Reportable 06/08/20 04:53 Target Cells Not Reportable 06/08/20 04:53 Tear Drop Cells Not Reportable 06/08/20 04:53 Ovalocytes Few 06/08/20 04:53 Helmet Cells Not Reportable 06/08/20 04:53 [place] Bodies Not Reportable 06/08/20 04:53 [place] Rings Not Reportable 06/08/20 04:53 Mil Cells Not Reportable 06/08/20 04:53 Bite Cells Not Reportable 06/08/20 04:53 Crenated Cell Not Reportable 06/08/20 04:53 Elliptocytes Few 06/08/20 04:53 Acanthocytes (Spur) Not Reportable 06/08/20 04:53 Rouleaux Not Reportable 06/08/20 04:53 Hemoglobin C Crystals Not Reportable 06/08/20 04:53 Schistocytes Not Reportable 06/08/20 04:53 Malaria parasites Not Reportable 06/08/20 04:53 [place] Bodies Not Reportable 06/08/20 04:53 Hem Pathologist Commnt No 06/08/20 04:53 PT 14.1 Sec. (12.2-14.9) 06/07/20 12:13 INR 1.07 (0.87-1.13) 06/07/20 12:13 D-Dimer 742.10 ng/mlDDU (0-234) H 06/07/20 12:13 Sodium 136 mmol/L (137-145) L 06/08/20 04:53 Potassium 4.3 mmol/L (3.6-5.0) 06/08/20 04:53 Chloride 100.5 mmol/L (98-107) 06/08/20 04:53 Carbon Dioxide 26 mmol/L (22-30) 06/08/20 04:53 Anion Gap 14 mmol/L 06/08/20 04:53 BUN 22 mg/dL (9-20) H 06/08/20 04:53 Creatinine 0.8 mg/dL (0.8-1.5) 06/08/20 04:53 Estimated GFR > 60 ml/min 06/08/20 04:53 BUN/Creatinine Ratio 28 % 06/08/20 04:53 Glucose 150 mg/dL (75-100) H 06/08/20 04:53 Lactic Acid 1.70 mmol/L (0.7-2.0) 06/07/20 12:13 Calcium 8.3 mg/dL (8.4-10.2) L 06/08/20 04:53 Magnesium 2.70 mg/dL (1.7-2.3) H 06/07/20 12:13 Ferritin 397.3 ng/mL (13.0-400.0) 06/07/20 12:13 Total Bilirubin 0.30 mg/dL (0.1-1.2) 06/08/20 04:53 AST 57 units/L (5-40) H 06/08/20 04:53 ALT 65 units/L (7-56) H 06/08/20 04:53 Alkaline Phosphatase 79 units/L (35-129) 06/08/20 04:53 Lactate Dehydrogenase 369 units/L (91-180) H 06/07/20 12:13 Total Creatine Kinase 104 units/L (55-170) 06/07/20 12:13 C-Reactive Protein 6.70 mg/dL (0.00-1.30) H 06/07/20 12:13 Total Protein 6.3 g/dL (6.3-8.2) 06/08/20 04:53 Albumin 2.9 g/dL (3.9-5) L 06/08/20 04:53 Albumin/Globulin Ratio 0.9 % 06/08/20 04:53 Procalcitonin 0.24 ng/mL (<0.15) 06/07/20 12:13 Blood Type A POSITIVE 06/07/20 12:16 Antibody Screen Negative 06/07/20 12:16 Microbiology: Microbiology 06/07/20 12:13 Peripheral/Venous Blood Culture - Preliminary Culture in Progress 06/07/20 12:13 Peripheral/Venous Blood Culture - Preliminary Culture in Progress Active Medications - Current Medications Current Medications: Generic Name Dose Route Start Last Admin Trade Name Freq PRN Reason Stop Dose Admin Acetaminophen 650 mg 06/07/20 12:57 Tylenol PO Q6H PRN Pain MILD(1-3)/Fever >100.5/CANALES Diltiazem HCl 30 mg 06/07/20 18:00 06/08/20 06:21 Cardizem PO 30 mg Q6HR SANDRA Administration Ceftriaxone Sodium 2 gm in 100 mls @ 200 mls/hr 06/08/20 10:00 06/08/20 10:40 Rocephin/Ns 2 Gm/100 Ml IV 200 mls/hr Q24HR SANDRA Administration Protocol Azithromycin 500 mg/ Sodium 250 mls @ 250 mls/hr 06/08/20 10:00 06/08/20 12:16 Chloride IV 250 mls/hr Q24HR SANDRA Administration Protocol Sodium Chloride 500 mls @ 0 mls/hr 06/08/20 13:18 Nacl 0.9% 500 Ml IV 06/08/20 13:19 ONCE ONE As Directed Methylprednisolone Sodium Succinate 40 mg 06/07/20 22:00 06/08/20 06:21 Solu-Medrol IV 40 mg Q8HR SANDRA Administration Sodium Chloride 10 ml 06/07/20 22:00 06/08/20 10:48 Sodium Chloride Flush Syringe 10 Ml IV 10 ml BID SANDRA Administration Sodium Chloride 10 ml 06/07/20 12:57 Sodium Chloride Flush Syringe 10 Ml IV PRN PRN LINE FLUSH Tamsulosin HCl 0.4 mg 06/08/20 10:00 Flomax PO DAILY SANDRA
[2020-06-08] MEDS: APIXABAN 5 MG TAB PO SCH (14:05)
[2020-06-08] MEDS: TAMSULOSIN 0.4 MG CAP PO SCH (14:31)
[2020-06-09] MEDS: dilTIAZem 30 MG TAB PO SCH ×5 (00:11→23:30)
[2020-06-09] MEDS ORDERED: ZOLPIDEM 5 MG TAB PO PRN (00:23)
[2020-06-09] MEDS: cefTRIAXone/NS 2 GM/100 ML 2 GM/100 ML BAG IV SCH (09:35)
[2020-06-09] MEDS: TAMSULOSIN 0.4 MG CAP PO SCH (09:35)
--- NOTE | 2020-06-09 09:46 | Progress Note ---
Assessment and Plan 79 y/o male with pulmonary fibrosis and prior history of lung CA, admitted with acute hypoxic respiratory failure, worsening of fibrotic lung disease and concern for COVID 1. Follow COVID results 2. Agree with obtaining echo to rule out systolic heart failure or severe pulmonary HTN which is likely present. 3. Continue IV steroids for now. They do not improve overall clinical state in flares of pulmonary fibrosis 4. Consider lasix, maybe a one time IV dose given stable but marginal BP's. 5. Patient at high risk for spontaneous bleed with those platelets, consider transfusion to get above 20-30k 6. Wean FiO2 for sats >88% and or patient comfort. 7. Given underlying diagnosis of Pulmonary Fibrosis and Lung CA, if COVID pres ent makes prognosis that much worse. May need to discuss end of life details, currently full code now. 8. Prone as much as possible. Subjective Date of service: 06/09/20 Interval history: Patient had to be placed on HFNC this am. Sats in the upper 80's on NRB. Already on steroids. Awaiting COVID test for today. Objective Vital Signs - 12hr 06/08/20 06/08/20 06/08/20 22:00 23:37 23:42 Temperature Pulse Rate 75 Pulse Rate [ Left Brachial] Respiratory Rate Blood Pressure 120/68 161/86 Blood Pressure [Right] O2 Sat by Pulse 97 98 Oximetry 06/09/20 06/09/20 06/09/20 00:25 05:19 05:22 Temperature Pulse Rate 88 88 Pulse Rate [ 93 H Left Brachial] Respiratory 20 24 Rate Blood Pressure 127/77 Blood Pressure 127/77 [Right] O2 Sat by Pulse 97 96 Oximetry 06/09/20 06/09/20 06:19 09:02 Temperature 97.8 F Pulse Rate 88 Pulse Rate [ Left Brachial] Respiratory 25 H Rate Blood Pressure 134/74 Blood Pressure [Right] O2 Sat by Pulse 96 88 Oximetry Constitutional: no acute distress Eyes: non-icteric ENT: oropharynx moist Neck: supple Effort: mildly labored Ascultation: Bilateral: diminished breath sounds, rales Cardiovascular: regular rate and rhythm (Tachycardia noted) Gastrointestinal: normoactive bowel sounds, soft, non-tender, non-distended Integumentary: other (Petechial rash present) Extremities: other (Early clubbing present. Petechial rash lower extremities) Neurologic: normal mental status, non-focal exam CBC and BMP: 06/08/20 04:53 06/08/20 04:53 ABG, PT/INR, D-dimer: PT/INR, D-dimer PT 14.1 Sec. (12.2-14.9) 06/07/20 12:13 INR 1.07 (0.87-1.13) 06/07/20 12:13 D-Dimer 742.10 ng/mlDDU (0-234) H 06/07/20 12:13 Abnormal lab findings: Abnormal Labs 06/07/20 06/07/20 06/07/20 12:13 12:13 12:13 RBC Hgb 11.7 L Hct 34.3 L Plt Count 6 L* Seg Neuts % (Manual) 93.0 H Lymphocytes % (Manual) 4.0 L Seg Neutrophils # Man Lymphocytes # (Manual) 0.2 L D-Dimer 742.10 H Sodium 136 L BUN 21 H Glucose 138 H Calcium Magnesium 2.70 H AST 80 H ALT 71 H Lactate Dehydrogenase C-Reactive Protein Total Protein 6.1 L Albumin 3.2 L 06/07/20 06/07/20 06/08/20 12:13 15:59 04:53 RBC 3.39 L 3.17 L Hgb 10.5 L 9.7 L Hct 31.1 L 28.9 L Plt Count 6 L* 11 L* Seg Neuts % (Manual) 93.0 H Lymphocytes % (Manual) 5.0 L Seg Neutrophils # Man 8.5 H Lymphocytes # (Manual) 0.5 L D-Dimer Sodium BUN Glucose 139 H Calcium Magnesium AST ALT Lactate Dehydrogenase 369 H C-Reactive Protein 6.70 H Total Protein Albumin 06/08/20 04:53 RBC Hgb Hct Plt Count Seg Neuts % (Manual) Lymphocytes % (Manual) Seg Neutrophils # Man Lymphocytes # (Manual) D-Dimer Sodium 136 L BUN 22 H Glucose 150 H Calcium 8.3 L Magnesium AST 57 H ALT 65 H Lactate Dehydrogenase C-Reactive Protein Total Protein Albumin 2.9 L
[2020-06-09] MEDS ORDERED: FUROSEMIDE 20 MG/2 ML INJ IV ONE (10:00)
[2020-06-09] MEDS: AZITHROMYCIN 500 MG in SODIUM CHLORIDE 0.9% 250ML 250 ML IV SCH (10:57)
--- NOTE | 2020-06-09 12:50 | Progress Note ---
Assessment and Plan - Patient Problems (1) Acute hypoxemic respiratory failure Current Visit: Yes Status: Acute Plan to address problem: Chest x-ray, supplemental oxygen, pulse oximetry, nebulizer therapy, prone positioning while in bed, early ambulation, out of bed to chair PRN. (2) Pneumonia Current Visit: Yes Status: Acute Qualifiers: Laterality: bilateral Plan to address problem: Pneumonia protocol: Chest x-ray, CBC, CMP, supplemental oxygen, nebulizer therapy, blood culture, IV antibiotic therapy. (3) Suspected 2019 novel coronavirus infection Current Visit: Yes Status: Acute Plan to address problem: Coronavirus protocol: Infectious disease service consulted, IV steroid therapy, prone positioning while in bed, contact precautions, isolation precautions. PCR Pending (4) Lung cancer Current Visit: Yes Status: Acute Plan to address problem: Outpatient oncology follow-up, supportive care. Patient is status post chemoth erapy. (5) Atrial fibrillation Current Visit: Yes Status: Acute Plan to address problem: Rate control, hole anticoagulation with Eliquis due to thrombocytopenia, supportive care. Remote telemetry monitoring (6) Hypertension Current Visit: No Status: Acute Qualifiers: Hypertension type: essential hypertension Qualified Code(s): I10 - Essential (primary) hypertension Plan to address problem: Monitor blood pressure every shift, continue medical management. (7) Thrombocytopenia Current Visit: Yes Status: Acute Plan to address problem: Platelet transfusion, hold anticoagulation. Suspect secondary to chemotherapy regimen. NO active bleeding at this time (8) Nicotine dependence Current Visit: No Status: Acute Qualifiers: Nicotine product type: cigarettes Substance use status: in withdrawal Qualified Code(s): F17.213 - Nicotine dependence, cigarettes, with withdrawal Plan to address problem: Smoking cessation counseling, supportive care, behavior change counseling, +15 minutes. (9) DVT prophylaxis Current Visit: Yes Status: Acute Plan to address problem: SCD to bilateral lower extremities while in bed, continue therapeutic anticoagulation. (10) Advance care planning Current Visit: No Status: Acute Plan to address problem: Disease education conducted, patient prognosis discussed, patient is full code, patient knowledges understanding and agreement with care plan, +30 minutes. History Interval history: 79 YO Male HD #3 with Covid 19 PUI, Pneumonia, Respiratory Failure on High Flow supplemental oxygen, Thrombocytopenia, Atrial Fib on Therapeutic Anticoagulation, Lung Cancer s/p radiation therapy, currently undergoing c hemotherapy, Pulmonary Fibrosis/PAH pending Echo. Pt resting in bed, Pt denies fever, chills, CP, palpitations, NVD, mucosal bleeding, or joint pain. No reported nursing events. Poor prognosis Hospitalist Physical - Constitutional Vitals: Temp Pulse Resp BP Pulse Ox 97.8 F 88 25 H 134/74 90 06/09/20 06:19 06/09/20 06:19 06/09/20 06:19 06/09/20 06:19 06/09/20 10:29 General appearance: Present: mild distress, cachectic - EENT Eyes: Present: PERRL ENT: hearing intact - Neck Neck: Present: supple - Respiratory Respiratory effort: labored Respiratory: bilateral: diminished, rhonchi - Cardiovascular Rhythm: regular Heart Sounds: Present: S1 & S2 - Extremities Extremities: no ischemia Peripheral Pulses: within normal limits - Abdominal General gastrointestinal: soft, non-tender, non-distended - Integumentary Integumentary: Present: clear, dry - Psychiatric Psychiatric: appropriate mood/affect, cooperative - Neurologic Neurologic: CNII-XII intact Results - Labs CBC & Chem 7: 06/08/20 04:53 06/08/20 04:53 Labs: Laboratory Last Values WBC 9.1 K/mm3 (4.5-11.0) 06/08/20 04:53 RBC 3.17 M/mm3 (3.65-5.03) L 06/08/20 04:53 Hgb 9.7 gm/dl (11.8-15.2) L 06/08/20 04:53 Hct 28.9 % (35.5-45.6) L 06/08/20 04:53 MCV 91 fl (84-94) 06/08/20 04:53 MCH 31 pg (28-32) 06/08/20 04:53 MCHC 34 % (32-34) 06/08/20 04:53 RDW 15.0 % (13.2-15.2) 06/08/20 04:53 Plt Count 11 K/mm3 (140-440) L* 06/08/20 04:53 Lymph % (Auto) Gis Physical Scientist 06/07/20 12:13 [place] % (Auto) Gis Physical Scientist 06/07/20 12:13 Eos % (Auto) Gis Physical Scientist 06/07/20 12:13 Baso % (Auto) Gis Physical Scientist 06/07/20 12:13 Lymph # Gis Physical Scientist 06/07/20 12:13 [place] # Gis Physical Scientist 06/07/20 12:13 Eos # Gis Physical Scientist 06/07/20 12:13 Baso # Gis Physical Scientist 06/07/20 12:13 Add Manual Diff Complete 06/08/20 04:53 Total Counted 100 06/08/20 04:53 Seg Neutrophils % Gis Physical Scientist 06/08/20 04:53 Seg Neuts % (Manual) 93.0 % (40.0-70.0) H 06/08/20 04:53 Band Neutrophils % 2.0 % 06/08/20 04:53 Lymphocytes % (Manual) 5.0 % (13.4-35.0) L 06/08/20 04:53 Reactive Lymphs % (Man) 0 % 06/08/20 04:53 Monocytes % (Manual) 0 % (0.0-7.3) 06/08/20 04:53 Eosinophils % (Manual) 0 % (0.0-4.3) 06/08/20 04:53 Basophils % (Manual) 0 % (0.0-1.8) 06/08/20 04:53 Metamyelocytes % 0 % 06/08/20 04:53 Myelocytes % 0 % 06/08/20 04:53 Promyelocytes % 0 % 06/08/20 04:53 Blast Cells % 0 % 06/08/20 04:53 Nucleated RBC % Not Reportable 06/08/20 04:53 Seg Neutrophils # Gis Physical Scientist 06/07/20 12:13 Seg Neutrophils # Man 8.5 K/mm3 (1.8-7.7) H 06/08/20 04:53 Band Neutrophils # 0.2 K/mm3 06/08/20 04:53 Lymphocytes # (Manual) 0.5 K/mm3 (1.2-5.4) L 06/08/20 04:53 Abs React Lymphs (Man) 0.0 K/mm3 06/08/20 04:53 Monocytes # (Manual) 0.0 K/mm3 (0.0-0.8) 06/08/20 04:53 Eosinophils # (Manual) 0.0 K/mm3 (0.0-0.4) 06/08/20 04:53 Basophils # (Manual) 0.0 K/mm3 (0.0-0.1) 06/08/20 04:53 Metamyelocytes # 0.0 K/mm3 06/08/20 04:53 Myelocytes # 0.0 K/mm3 06/08/20 04:53 Promyelocytes # 0.0 K/mm3 06/08/20 04:53 Blast Cells # 0.0 K/mm3 06/08/20 04:53 WBC Morphology Not Reportable 06/08/20 04:53 WBC Morphology TNR 06/08/20 04:53 Hypersegmented Neuts Not Reportable 06/08/20 04:53 Hyposegmented Neuts Not Reportable 06/08/20 04:53 Hypogranular Neuts Not Reportable 06/08/20 04:53 Smudge Cells Not Reportable 06/08/20 04:53 Toxic Granulation Not Reportable 06/08/20 04:53 Toxic Vacuolation Not Reportable 06/08/20 04:53 Dohle Bodies Not Reportable 06/08/20 04:53 Pelger-Huet Anomaly Not Reportable 06/08/20 04:53 Manuel Rods Not Reportable 06/08/20 04:53 Platelet Estimate Consistent w auto 06/08/20 04:53 Clumped Platelets Not Reportable 06/08/20 04:53 Plt Clumps, EDTA Not Reportable 06/08/20 04:53 Large Platelets Not Reportable 06/08/20 04:53 Giant Platelets Not Reportable 06/08/20 04:53 Platelet Satelliting Not Reportable 06/08/20 04:53 Plt Morphology Comment Not Reportable 06/08/20 04:53 RBC Morphology Not Reportable 06/08/20 04:53 Dimorphic RBCs Not Reportable 06/08/20 04:53 Polychromasia Not Reportable 06/08/20 04:53 Hypochromasia Not Reportable 06/08/20 04:53 Poikilocytosis Not Reportable 06/08/20 04:53 Anisocytosis Not Reportable 06/08/20 04:53 Microcytosis Not Reportable 06/08/20 04:53 Macrocytosis Not Reportable 06/08/20 04:53 Spherocytes Not Reportable 06/08/20 04:53 Pappenheimer Bodies Not Reportable 06/08/20 04:53 Sickle Cells Not Reportable 06/08/20 04:53 Target Cells Not Reportable 06/08/20 04:53 Tear Drop Cells Not Reportable 06/08/20 04:53 Ovalocytes Few 06/08/20 04:53 Helmet Cells Not Reportable 06/08/20 04:53 Gamble-Firth Bodies Not Reportable 06/08/20 04:53 Perry Rings Not Reportable 06/08/20 04:53 Mil Cells Not Reportable 06/08/20 04:53 Bite Cells Not Reportable 06/08/20 04:53 Crenated Cell Not Reportable 06/08/20 04:53 Elliptocytes Few 06/08/20 04:53 Acanthocytes (Spur) Not Reportable 06/08/20 04:53 Rouleaux Not Reportable 06/08/20 04:53 Hemoglobin C Crystals Not Reportable 06/08/20 04:53 Schistocytes Not Reportable 06/08/20 04:53 Malaria parasites Not Reportable 06/08/20 04:53 Scott Bodies Not Reportable 06/08/20 04:53 Hem Pathologist Commnt No 06/08/20 04:53 PT 14.1 Sec. (12.2-14.9) 06/07/20 12:13 INR 1.07 (0.87-1.13) 06/07/20 12:13 D-Dimer 742.10 ng/mlDDU (0-234) H 06/07/20 12:13 Sodium 136 mmol/L (137-145) L 06/08/20 04:53 Potassium 4.3 mmol/L (3.6-5.0) 06/08/20 04:53 Chloride 100.5 mmol/L (98-107) 06/08/20 04:53 Carbon Dioxide 26 mmol/L (22-30) 06/08/20 04:53 Anion Gap 14 mmol/L 06/08/20 04:53 BUN 22 mg/dL (9-20) H 06/08/20 04:53 Creatinine 0.8 mg/dL (0.8-1.5) 06/08/20 04:53 Estimated GFR > 60 ml/min 06/08/20 04:53 BUN/Creatinine Ratio 28 % 06/08/20 04:53 Glucose 150 mg/dL (75-100) H 06/08/20 04:53 Lactic Acid 1.70 mmol/L (0.7-2.0) 06/07/20 12:13 Calcium 8.3 mg/dL (8.4-10.2) L 06/08/20 04:53 Magnesium 2.70 mg/dL (1.7-2.3) H 06/07/20 12:13 Ferritin 397.3 ng/mL (13.0-400.0) 06/07/20 12:13 Total Bilirubin 0.30 mg/dL (0.1-1.2) 06/08/20 04:53 AST 57 units/L (5-40) H 06/08/20 04:53 ALT 65 units/L (7-56) H 06/08/20 04:53 Alkaline Phosphatase 79 units/L (35-129) 06/08/20 04:53 Lactate Dehydrogenase 369 units/L (91-180) H 06/07/20 12:13 Total Creatine Kinase 104 units/L (55-170) 06/07/20 12:13 C-Reactive Protein 6.70 mg/dL (0.00-1.30) H 06/07/20 12:13 Total Protein 6.3 g/dL (6.3-8.2) 06/08/20 04:53 Albumin 2.9 g/dL (3.9-5) L 06/08/20 04:53 Albumin/Globulin Ratio 0.9 % 06/08/20 04:53 Procalcitonin 0.24 ng/mL (<0.15) 06/07/20 12:13 Blood Type A POSITIVE 06/07/20 12:16 Antibody Screen Negative 06/07/20 12:16 Microbiology: Microbiology 06/07/20 12:13 Peripheral/Venous Blood Culture - Preliminary NO GROWTH AFTER 24 HOURS 06/07/20 12:13 Peripheral/Venous Blood Culture - Preliminary NO GROWTH AFTER 24 HOURS Espitia/IV: Voiding Method Urinal IV Catheter Type [Right INT / Saline Lock Forearm] Active Medications - Current Medications Current Medications: Generic Name Dose Route Start Last Admin Trade Name Freq PRN Reason Stop Dose Admin Acetaminophen 650 mg 06/07/20 12:57 Tylenol PO Q6H PRN Pain MILD(1-3)/Fever >100.5/CANALES Azithromycin 500 mg 06/10/20 10:00 Zithromax PO 06/11/20 14:00 QDAY SANDRA Diltiazem HCl 30 mg 06/07/20 18:00 06/09/20 11:00 Cardizem PO 30 mg Q6HR SANDRA Administration Ceftriaxone Sodium 2 gm in 100 mls @ 200 mls/hr 06/08/20 10:00 06/09/20 09:35 Rocephin/Ns 2 Gm/100 Ml IV 200 mls/hr Q24HR SANDRA Administration Protocol Azithromycin 500 mg/ Sodium 250 mls @ 250 mls/hr 06/08/20 10:00 06/09/20 10:57 Chloride IV 06/09/20 14:00 250 mls/hr Q24HR SANDRA Administration Protocol Methylprednisolone Sodium Succinate 40 mg 06/07/20 22:00 06/08/20 21:12 Solu-Medrol IV 40 mg Q8HR SANDRA Administration Sodium Chloride 10 ml 06/07/20 22:00 06/09/20 09:35 Sodium Chloride Flush Syringe 10 Ml IV 10 ml BID SANDRA Administration Sodium Chloride 10 ml 06/07/20 12:57 Sodium Chloride Flush Syringe 10 Ml IV PRN PRN LINE FLUSH Tamsulosin HCl 0.4 mg 06/08/20 10:00 06/09/20 09:35 Flomax PO 0.4 mg DAILY SANDRA Administration Zolpidem Tartrate 5 mg 06/09/20 00:23 06/09/20 00:49 Ambien PO 5 mg QHS PRN Administration Sleep
--- NOTE | 2020-06-09 14:35 | Progress Note ---
Assessment and Plan Cultures: Blood culture 06/07/2020 pending A/P: 79-year-old man past medical history arthritis, nicotine dependence, COPD, A. fib, lung cancer status post radiation therapy currently on chemotherapy admitted with pneumonia, possible COVID-19 #Acute hypoxemic respiratory failure: Likely secondary to COVID-19 infection, pending testing #Bilateral pneumonia: Likely secondary COVID-19 #COPD: Associated with worse outcomes with COVID-19 #Lung cancer, currently on chemotherapy: High risk for decompensation. Recs: -Continue steroids per pulmonary -Follow-up COVID-19 testing -If COVID-19 testing positive, would stop empiric antibiotics in the basis of normal procalcitonin and white count. -Further COVID-19 specific recommendations pending positive testing, though inflammatory markers remain normal at this time. -Anticoagulation per protocol Thank you for the consult, we will continue to follow. Immanuel Carrillo MD [facility] ([facility]) M: [phone] O: [phone] F: [phone] Subjective Date of service: 06/09/20 Interval history: Afebrile, normal white count. COVID-19 testing still pending Objective - Exam Narrative Exam: Physical exam deferred due to PPE conservation strategy. Please refer to primary team's note. - Constitutional Vitals: Vital Signs Temp Pulse Resp BP Pulse Ox 97.9 F 99 H 24 150/68 96 06/09/20 12:57 06/09/20 12:57 06/09/20 12:57 06/09/20 12:57 06/09/20 12:57 Temperature -Last 24 Hours Temperature 97.9 F Temperature 97.8 F Temperature 97.2 F Temperature 97.2 F Temperature 97.4 F Temperature 97.5 F Temperature 97.6 F Temperature 97.6 F Temperature 97.2 F - Labs CBC & Chem 7: 06/08/20 04:53 06/08/20 04:53
[2020-06-09] MEDS: methylPREDNISolone Sod Succinate 40 MG/1 ML INJ IV SCH ×2 (14:42→22:27)
[2020-06-09 14:49] LABS: Hematocrit 29.5 % (35.5-45.6); Hemoglobin 9.8 gm/dl (11.8-15.2); Mean Corpuscular HGB Conc 33 % (32-34); Mean Corpuscular Volume 93 fl (84-94); Red Blood Count 3.18 M/mm3 (3.65-5.03); Red Cell Distribution Width 14.9 % (13.2-15.2)
[2020-06-09 14:55] LABS: Platelet Count 84 K/mm3 (140-440)
[2020-06-09 16:23] LABS: Basophils % (Manual) 0 % (0.0-1.8); Eosinophils % (Manual) 0 % (0.0-4.3); RBC Morphology Normal; Total Cells Counted 100
[2020-06-10] MEDS: dilTIAZem 30 MG TAB PO SCH ×5 (05:43→23:17)
[2020-06-10] MEDS: methylPREDNISolone Sod Succinate 40 MG/1 ML INJ IV SCH ×4 (05:43→23:17)
[2020-06-10] MEDS ORDERED: FUROSEMIDE 20 MG/2 ML INJ IV SCH (08:30)
[2020-06-10 09:00] LABS: Hematocrit 30.5 % (35.5-45.6); Hemoglobin 10.4 gm/dl (11.8-15.2); Mean Corpuscular HGB Conc 34 % (32-34); Mean Corpuscular Volume 92 fl (84-94); Platelet Count 115 K/mm3 (140-440); Red Blood Count 3.31 M/mm3 (3.65-5.03)
[2020-06-10 09:17] LABS: BUN/Creatinine Ratio 37; Blood Urea Nitrogen 22 mg/dL (9-20); Calcium 8.5 mg/dL (8.4-10.2); Hemolysis Index 1
[2020-06-10] MEDS: cefTRIAXone/NS 2 GM/100 ML 2 GM/100 ML BAG IV SCH (09:38)
[2020-06-10] MEDS: TAMSULOSIN 0.4 MG CAP PO SCH (09:38)
[2020-06-10] MEDS: AZITHROMYCIN 250 MG TAB PO SCH (09:39)
--- NOTE | 2020-06-10 10:29 | Progress Note ---
Assessment and Plan 79 y/o male with pulmonary fibrosis and prior history of lung CA, admitted with acute hypoxic respiratory failure, worsening of fibrotic lung disease and concern for COVID 1. COVID negative. 2. needs echo to follow review left and right sided pressures. This is likely an acute exacerbation of Pulmonary Fibrosis. 3. Continue IV steroids for now. They do not improve overall clinical state in flares of pulmonary fibrosis 4. Will given lasix again today. 5. Platelet count improved drastically. 6. Wean FiO2 for sats >88% and or patient comfort. Sats of 88-92% are adequate and if patient has underlying COPD, he does not need to be 100%. 7. Will discuss with patient code status, given his degree of lung disease, if he is intubated, the likely [place] of him coming off successfully is very very low. 8. Ok with proning if patient can do so. Subjective Date of service: 06/10/20 Interval history: COVID test negative which is a good thing. Still on a large amount of oxygen but can use bipap if necessary. Tolerated lasix well yesterday. Was given Ambien after midnight last night. Objective Vital Signs - 12hr 06/09/20 06/09/20 06/10/20 23:30 23:31 01:29 Temperature Pulse Rate 70 Respiratory Rate Blood Pressure 130/69 130/69 O2 Sat by Pulse 97 Oximetry 06/10/20 06/10/20 04:50 05:43 Temperature 97.9 F Pulse Rate 73 73 Respiratory 20 Rate Blood Pressure 122/65 122/65 O2 Sat by Pulse 97 Oximetry Constitutional: no acute distress Eyes: non-icteric ENT: oropharynx moist Neck: supple Effort: mildly labored Ascultation: Bilateral: diminished breath sounds, rales Cardiovascular: regular rate and rhythm (Tachycardia noted) Gastrointestinal: normoactive bowel sounds, soft, non-tender, non-distended Integumentary: other (Petechial rash present) Extremities: other (Early clubbing present. Petechial rash lower extremities) Neurologic: normal mental status, non-focal exam CBC and BMP: 06/10/20 08:17 06/10/20 08:17 ABG, PT/INR, D-dimer: PT/INR, D-dimer PT 14.1 Sec. (12.2-14.9) 06/07/20 12:13 INR 1.07 (0.87-1.13) 06/07/20 12:13 D-Dimer 742.10 ng/mlDDU (0-234) H 06/07/20 12:13 Abnormal lab findings: Abnormal Labs 06/07/20 06/07/20 06/07/20 12:13 12:13 12:13 WBC RBC Hgb 11.7 L Hct 34.3 L Plt Count 6 L* Seg Neuts % (Manual) 93.0 H Lymphocytes % (Manual) 4.0 L Seg Neutrophils # Man Lymphocytes # (Manual) 0.2 L Monocytes # (Manual) D-Dimer 742.10 H Sodium 136 L Carbon Dioxide BUN 21 H Creatinine Glucose 138 H Calcium Magnesium 2.70 H AST 80 H ALT 71 H Lactate Dehydrogenase C-Reactive Protein Total Protein 6.1 L Albumin 3.2 L 06/07/20 06/07/20 06/08/20 12:13 15:59 04:53 WBC RBC 3.39 L 3.17 L Hgb 10.5 L 9.7 L Hct 31.1 L 28.9 L Plt Count 6 L* 11 L* Seg Neuts % (Manual) 93.0 H Lymphocytes % (Manual) 5.0 L Seg Neutrophils # Man 8.5 H Lymphocytes # (Manual) 0.5 L Monocytes # (Manual) D-Dimer Sodium Carbon Dioxide BUN Creatinine Glucose 139 H Calcium Magnesium AST ALT Lactate Dehydrogenase 369 H C-Reactive Protein 6.70 H Total Protein Albumin 06/08/20 06/09/20 06/10/20 04:53 14:06 08:17 WBC 16.5 H 12.3 H RBC 3.18 L 3.31 L Hgb 9.8 L 10.4 L Hct 29.5 L 30.5 L Plt Count 84 L D 115 L Seg Neuts % (Manual) 82.0 H Lymphocytes % (Manual) 11.0 L Seg Neutrophils # Man 13.5 H Lymphocytes # (Manual) Monocytes # (Manual) 1.2 H D-Dimer Sodium 136 L Carbon Dioxide BUN 22 H Creatinine Glucose 150 H Calcium 8.3 L Magnesium AST 57 H ALT 65 H Lactate Dehydrogenase C-Reactive Protein Total Protein Albumin 2.9 L 06/10/20 08:17 WBC RBC Hgb Hct Plt Count Seg Neuts % (Manual) Lymphocytes % (Manual) Seg Neutrophils # Man Lymphocytes # (Manual) Monocytes # (Manual) D-Dimer Sodium Carbon Dioxide 32 H BUN 22 H Creatinine 0.6 L Glucose 142 H Calcium Magnesium AST ALT Lactate Dehydrogenase C-Reactive Protein Total Protein Albumin
--- NOTE | 2020-06-10 11:21 | Progress Note ---
Assessment and Plan Cultures: Blood culture 06/07/2020 pending COVID-19: Negative A/P: 79-year-old man past medical history arthritis, nicotine dependence, COPD, A. fib, lung cancer status post radiation therapy currently on chemotherapy admitted with pneumonia, possible COVID-19 #Acute hypoxemic respiratory failure: COVID-19 test negative, likely secondary to his lung cancer and other COVID-19. #Bilateral pneumonia: Complete 5 days and was given mild elevated procalcitonin #COPD #Lung cancer, currently on chemotherapy: High risk for decompensation. #Leukocytosis: New onset, likely secondary to steroids Recs: -Continue steroids per pulmonary -Complete 5 days of empiric ceftriaxone and 3 days of empiric azithromycin given elevated procalcitonin, though doubt bacterial pneumonia at this time. -Leukocytosis likely secondary to steroid use Thank you for the consult, we will continue to follow. Immanuel Carrillo MD [facility] ([facility]) M: [phone] O: [phone] F: [phone] Subjective Date of service: 06/10/20 Interval history: Afebrile, currently on high flow nasal cannula 40/100% Objective - Exam Narrative Exam: Physical exam deferred due to PPE conservation strategy. Please refer to primary team's note. - Constitutional Vitals: Vital Signs Temp Pulse Resp BP Pulse Ox 97.9 F 73 20 122/65 97 06/10/20 04:50 06/10/20 05:43 06/10/20 04:50 06/10/20 05:43 06/10/20 04:50 Temperature -Last 24 Hours Temperature 97.9 F Temperature 98.1 F Temperature 97.6 F Temperature 97.9 F - Labs CBC & Chem 7: 06/10/20 08:17 06/10/20 08:17 Labs: Abnormal lab results 06/09/20 06/10/20 06/10/20 Range/Units 14:06 08:17 08:17 WBC 16.5 H 12.3 H (4.5-11.0) K/mm3 RBC 3.18 L 3.31 L (3.65-5.03) M/mm3 Hgb 9.8 L 10.4 L (11.8-15.2) gm/dl Hct 29.5 L 30.5 L (35.5-45.6) % Plt Count 84 L D 115 L (140-440) K/mm3 Seg Neuts % (Manual) 82.0 H (40.0-70.0) % Lymphocytes % (Manual) 11.0 L (13.4-35.0) % Seg Neutrophils # Man 13.5 H (1.8-7.7) K/mm3 Monocytes # (Manual) 1.2 H (0.0-0.8) K/mm3 Carbon Dioxide 32 H (22-30) mmol/L BUN 22 H (9-20) mg/dL Creatinine 0.6 L (0.8-1.5) mg/dL Glucose 142 H (75-100) mg/dL
--- NOTE | 2020-06-10 14:57 | Progress Note ---
Assessment and Plan DAY 4 Patient Problems (1) Acute hypoxemic respiratory failure Current Visit: Yes Status: Acute Plan to address problem: Continue oxygen supplementation. He will need to awalk test to determine oxygen need prior to discharge (2) Pneumonia Current Visit: Yes Status: Acute Qualifiers: Laterality: bilateral Plan to address problem: Pneumonia protocol: Chest x-ray, CBC, CMP, supplemental oxygen, nebulizer t herapy, blood culture, ceftriaxone and azithromycin. (3) Suspected 2019 novel coronavirus infection -negative (4) Lung cancer Current Visit: Yes Status: Acute Plan to address problem: Outpatient oncology follow-up, supportive care. Patient is status post chemotherapy. (5) Atrial fibrillation Current Visit: Yes Status: Acute Plan to address problem: Continue with rate control medication. Monitor antiplatelet platelet count for now. Resume tomorrow if stable. (6) Hypertension Current Visit: No Status: Acute Qualifiers: Hypertension type: essential hypertension Qualified Code(s): I10 - Essential (primary) hypertension Plan to address problem: Monitor blood pressure every shift, continue medical management. (7) Thrombocytopenia Current Visit: Yes Status: Acute Plan to address problem: Now status post platelet transfusion. Platelets 84 today. This is likely from chemotherapy. (8) Nicotine dependence Current Visit: No Status: Acute Qualifiers: Nicotine product type: cigarettes Substance use status: in withdrawal Qualified Code(s): F17.213 - Nicotine dependence, cigarettes, with withdrawal Plan to address problem: Smoking cessation counseling, supportive care, behavior change counseling, +15 minutes. (9) DVT prophylaxis Current Visit: Yes Status: Acute Plan to address problem: SCD to bilateral lower extremities while in bed. Heparin when platelet count stable (10) Advance care planning Current Visit: No Status: Acute Plan to address problem: Disease education conducted, patient prognosis discussed, patient is full code, patient knowledges understanding and agreement with care plan, +30 minutes. Subjective Date of service: 06/10/20 Principal diagnosis: Acute hypoxic respiratory failure Interval history: Patient is a 79-year-old male with a history of lung cancer, pulmonary fibrosis admitted with dyspnea on exertion for about 3 days prior to presentation. Chest imaging here showed bilateral pulmonary infiltrates. Here patient started on antibiotics. Cultures ordered in the ER. Started on diuretics and steroids as well. Patient is COVID 19 test negative. This morning, patient feels better. He says he does not wish to resume any chemotherapy after discharge. He has an oncologist. He does not use oxygen at home and will most likely need oxygen on discharge. Objective - Constitutional Vitals: Vital Signs - 12hr 06/10/20 06/10/20 06/10/20 04:50 05:43 11:01 Temperature 97.9 F 97.0 F L Pulse Rate 73 73 71 Respiratory 20 20 Rate Blood Pressure 122/65 122/65 122/68 O2 Sat by Pulse 97 97 Oximetry 06/10/20 13:25 Temperature Pulse Rate 75 Respiratory Rate Blood Pressure O2 Sat by Pulse Oximetry General appearance: Present: no acute distress, well-nourished - EENT Eyes: PERRL, EOM intact ENT: hearing intact, clear oral mucosa Ears: bilateral: normal - Neck Neck: supple, normal ROM - Respiratory Respiratory effort: normal Respiratory: bilateral: CTA, rales - Breasts Breasts: normal - Cardiovascular Rhythm: regular Heart Sounds: Present: S1 & S2. Absent: gallop, rub Extremities: pulses intact, normal color, Full ROM - Gastrointestinal General gastrointestinal: Present: soft, non-tender, non-distended, normal bowel sounds - Genitourinary Male genitourinary: normal - Integumentary Integumentary: clear, warm, dry - Musculoskeletal Musculoskeletal: 1, strength equal bilaterally - Neurologic Neurologic: moves all extremities - Psychiatric Psychiatric: memory intact, appropriate mood/affect, intact judgment & insight - Labs CBC & Chem 7: 06/10/20 08:17 06/10/20 08:17 Labs: Abnormal lab results 06/09/20 06/10/20 06/10/20 Range/Units 14:06 08:17 08:17 WBC 16.5 H 12.3 H (4.5-11.0) K/mm3 RBC 3.18 L 3.31 L (3.65-5.03) M/mm3 Hgb 9.8 L 10.4 L (11.8-15.2) gm/dl Hct 29.5 L 30.5 L (35.5-45.6) % Plt Count 84 L D 115 L (140-440) K/mm3 Seg Neuts % (Manual) 82.0 H (40.0-70.0) % Lymphocytes % (Manual) 11.0 L (13.4-35.0) % Seg Neutrophils # Man 13.5 H (1.8-7.7) K/mm3 Monocytes # (Manual) 1.2 H (0.0-0.8) K/mm3 Carbon Dioxide 32 H (22-30) mmol/L BUN 22 H (9-20) mg/dL Creatinine 0.6 L (0.8-1.5) mg/dL Glucose 142 H (75-100) mg/dL
[2020-06-11] MEDS: methylPREDNISolone Sod Succinate 40 MG/1 ML INJ IV SCH (05:55)
[2020-06-11] MEDS: dilTIAZem 30 MG TAB PO SCH ×4 (05:55→18:03)
[2020-06-11] MEDS: cefTRIAXone/NS 2 GM/100 ML 2 GM/100 ML BAG IV SCH (09:47)
[2020-06-11] MEDS: AZITHROMYCIN 250 MG TAB PO SCH (09:47)
[2020-06-11] MEDS: TAMSULOSIN 0.4 MG CAP PO SCH (09:47)
--- NOTE | 2020-06-11 12:24 | Progress Note ---
Assessment and Plan 79 y/o male with pulmonary fibrosis and prior history of lung CA, admitted with acute hypoxic respiratory failure, worsening of fibrotic lung disease and concern for COVID 1. COVID negative. 2. 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 Diresis is really the only thing to offer, but will have to hold today given BP. 3. I did increase his IV steroids today since I cannot diurese today to see if this helps. 4. Wean FiO2 for sats >88% 5. Platelet count improved drastically. 6. Will discuss with patient code status, given his degree of lung disease, if he is intubated, the likely aguilera of him coming off successfully is very very low. Subjective Date of service: 06/11/20 Principal diagnosis: Acute hypoxic respiratory failure Interval history: Still on HFNC and now per documentation off NRB. Tolerated lasix on yesterday but BP today is marginal. Objective Vital Signs - 12hr 06/11/20 06/11/20 06/11/20 02:00 04:24 05:55 Temperature 97.8 F Pulse Rate 81 81 Respiratory 16 Rate Blood Pressure 100/52 100/52 O2 Sat by Pulse 95 91 Oximetry 06/11/20 06/11/20 06:31 09:59 Temperature Pulse Rate Respiratory Rate Blood Pressure O2 Sat by Pulse 97 95 Oximetry Constitutional: no acute distress Eyes: non-icteric ENT: oropharynx moist Neck: supple Effort: mildly labored Ascultation: Bilateral: diminished breath sounds, rales Cardiovascular: regular rate and rhythm (Tachycardia noted) Gastrointestinal: normoactive bowel sounds, soft, non-tender, non-distended Integumentary: other (Petechial rash present) Extremities: other (Early clubbing present. Petechial rash lower extremities) Neurologic: normal mental status, non-focal exam CBC and BMP: 06/10/20 08:17 06/10/20 08:17 ABG, PT/INR, D-dimer: PT/INR, D-dimer PT 14.1 Sec. (12.2-14.9) 06/07/20 12:13 INR 1.07 (0.87-1.13) 06/07/20 12:13 D-Dimer 742.10 ng/mlDDU (0-234) H 06/07/20 12:13 Abnormal lab findings: Abnormal Labs 06/07/20 06/07/20 06/07/20 12:13 12:13 12:13 WBC RBC Hgb 11.7 L Hct 34.3 L Plt Count 6 L* Seg Neuts % (Manual) 93.0 H Lymphocytes % (Manual) 4.0 L Seg Neutrophils # Man Lymphocytes # (Manual) 0.2 L Monocytes # (Manual) D-Dimer 742.10 H Sodium 136 L Carbon Dioxide BUN 21 H Creatinine Glucose 138 H Calcium Magnesium 2.70 H AST 80 H ALT 71 H Lactate Dehydrogenase C-Reactive Protein Total Protein 6.1 L Albumin 3.2 L 06/07/20 06/07/20 06/08/20 12:13 15:59 04:53 WBC RBC 3.39 L 3.17 L Hgb 10.5 L 9.7 L Hct 31.1 L 28.9 L Plt Count 6 L* 11 L* Seg Neuts % (Manual) 93.0 H Lymphocytes % (Manual) 5.0 L Seg Neutrophils # Man 8.5 H Lymphocytes # (Manual) 0.5 L Monocytes # (Manual) D-Dimer Sodium Carbon Dioxide BUN Creatinine Glucose 139 H Calcium Magnesium AST ALT Lactate Dehydrogenase 369 H C-Reactive Protein 6.70 H Total Protein Albumin 06/08/20 06/09/20 06/10/20 04:53 14:06 08:17 WBC 16.5 H 12.3 H RBC 3.18 L 3.31 L Hgb 9.8 L 10.4 L Hct 29.5 L 30.5 L Plt Count 84 L D 115 L Seg Neuts % (Manual) 82.0 H Lymphocytes % (Manual) 11.0 L Seg Neutrophils # Man 13.5 H Lymphocytes # (Manual) Monocytes # (Manual) 1.2 H D-Dimer Sodium 136 L Carbon Dioxide BUN 22 H Creatinine Glucose 150 H Calcium 8.3 L Magnesium AST 57 H ALT 65 H Lactate Dehydrogenase C-Reactive Protein Total Protein Albumin 2.9 L 06/10/20 08:17 WBC RBC Hgb Hct Plt Count Seg Neuts % (Manual) Lymphocytes % (Manual) Seg Neutrophils # Man Lymphocytes # (Manual) Monocytes # (Manual) D-Dimer Sodium Carbon Dioxide 32 H BUN 22 H Creatinine 0.6 L Glucose 142 H Calcium Magnesium AST ALT Lactate Dehydrogenase C-Reactive Protein Total Protein Albumin
[2020-06-11] MEDS ORDERED: methylPREDNISolone Sod Succinate 40 MG/1 ML INJ IV SCH (13:00)
--- NOTE | 2020-06-11 13:46 | Progress Note ---
Assessment and Plan Cultures: Blood culture 06/07/2020 pending COVID-19: Negative A/P: 79-year-old man past medical history arthritis, nicotine dependence, COPD, A. fib, lung cancer status post radiation therapy currently on chemotherapy admitted with pneumonia, possible COVID-19 #Acute hypoxemic respiratory failure: COVID-19 test negative, likely secondary to his lung cancer and other COVID-19. #Bilateral pneumonia: Complete 5 days and was given mild elevated procalcitonin #COPD #Lung cancer, currently on chemotherapy: High risk for decompensation. #Leukocytosis: New onset, likely secondary to steroids Recs: -Continue steroids per pulmonary -Complete 5 days of empiric ceftriaxone and 3 days of empiric azithromycin given elevated procalcitonin, though doubt bacterial pneumonia at this time. -Leukocytosis likely secondary to steroid use Thank you for the consult, we will continue to follow. Immanuel Carrillo MD [facility] ([facility]) M: [phone] O: [phone] F: [phone] Subjective Date of service: 06/11/20 Principal diagnosis: Acute hypoxic respiratory failure Interval history: Afebrile, white count improved to 12.3. Currently on high flow nasal cannula 40/100%. Objective - Exam Narrative Exam: Physical exam deferred due to PPE conservation strategy. Please refer to primary team's note. - Constitutional Vitals: Vital Signs Temp Pulse Resp BP Pulse Ox 98.5 F 83 24 106/58 99 06/11/20 11:53 06/11/20 11:53 06/11/20 11:53 06/11/20 11:53 06/11/20 11:53 Temperature -Last 24 Hours Temperature 98.5 F Temperature 97.8 F Temperature 97.7 F Temperature 98.7 F - Labs CBC & Chem 7: 06/10/20 08:17 06/10/20 08:17
[2020-06-11] MEDS: methylPREDNISolone Sod Succinate 125 MG/2 ML INJ IV SCH ×2 (13:56→18:03)
--- NOTE | 2020-06-11 15:28 | Progress Note ---
Assessment and Plan Assessment and plan: Patient is a 79-year-old male with a history of lung cancer, pulmonary fibrosis admitted with dyspnea on exertion for about 3 days prior to presentation. Chest imaging here showed bilateral pulmonary infiltrates. Here patient started on antibiotics. Cultures ordered in the ER. Started on diuretics and steroids as well. 06/10. Patient is COVID 19 test negative. This morning, patient feels better. He says he does not wish to resume any chemotherapy after discharge. He has an oncologist. He does not use oxygen at home and will most likely need oxygen on discharge. 06/11. Patient states that he feels better. He is still needing oxygen to maintain sats. Steroids increased today per pulmonology. Patient will need oxygen at discharge. ID recommendations appreciated. Plan to complete an [id number] therapy Vitals reviewed. Patient Problems (1) Acute hypoxemic respiratory failure Current Visit: Yes Status: Acute Plan to address problem: Continue oxygen supplementation for now and wean. He will need to a walk test to determine oxygen need prior to discharge. Repeat chest xray tomorrow. Pulmonology recs appreciated (2) Pneumonia Current Visit: Yes Status: Acute Qualifiers: Laterality: bilateral Plan to address problem: Pneumonia protocol: Antibiotics - Complete on 06/12. ID recommendations appreciated. (3) Suspected 2019 novel coronavirus infection -negative (4) Lung cancer Current Visit: Yes Status: Acute Plan to address problem: Outpatient oncology follow-up, supportive care. Patient is status post chemotherapy. (5) Atrial fibrillation Current Visit: Yes Status: Acute Plan to address problem: Continue with rate control medication. Eliquis resumed. Monitor platelets (6) Hypertension Current Visit: No Status: Acute Qualifiers: Hypertension type: essential hypertension Qualified Code(s): I10 - Essential (primary) hypertension Plan to address problem: Monitor blood pressure every shift, continue medical management. (7) Thrombocytopenia Current Visit: Yes Status: Acute Plan to address problem: Now status post platelet transfusion. Platelets 115 on 06/10. Monitor platelets (8) Nicotine dependence Current Visit: No Status: Acute Qualifiers: Nicotine product type: cigarettes Substance use status: in withdrawal Que lified Code(s): F17.213 - Nicotine dependence, cigarettes, with withdrawal Plan to address problem: Smoking cessation counseling, supportive care, behavior change counseling, +15 minutes. (9) DVT prophylaxis Current Visit: Yes Status: Acute Plan to address problem: SCD to bilateral lower extremities while in bed. On geraldqubenito (10) Advance care planning Current Visit: No Status: Acute Plan to address problem: Disease education conducted, patient prognosis discussed, patient is full code, patient knowledges understanding and agreement with care plan, +30 minutes. History Interval history: see below. Hospitalist Physical - Constitutional Vitals: Temp Pulse Resp BP Pulse Ox 98.5 F 76 24 110/52 98 06/11/20 11:53 06/11/20 13:55 06/11/20 11:53 06/11/20 13:55 06/11/20 14:20 General appearance: Present: no acute distress, well-nourished - EENT Eyes: Present: PERRL, EOM intact - Neck Neck: Present: supple, normal ROM - Respiratory Respiratory: right: rhonchi, left: rales - Cardiovascular Rhythm: regular Heart Sounds: Present: S1 & S2 - Extremities Extremities: no ischemia - Abdominal General gastrointestinal: soft, non-tender, normal bowel sounds - Integumentary Integumentary: Present: clear - Psychiatric Psychiatric: appropriate mood/affect - Neurologic Neurologic: CNII-XII intact Results - Labs CBC & Chem 7: 06/10/20 08:17 06/10/20 08:17 Labs: Laboratory Last Values WBC 12.3 K/mm3 (4.5-11.0) H 06/10/20 08:17 RBC 3.31 M/mm3 (3.65-5.03) L 06/10/20 08:17 Hgb 10.4 gm/dl (11.8-15.2) L 06/10/20 08:17 Hct 30.5 % (35.5-45.6) L 06/10/20 08:17 MCV 92 fl (84-94) 06/10/20 08:17 MCH 31 pg (28-32) 06/10/20 08:17 MCHC 34 % (32-34) 06/10/20 08:17 RDW 15.0 % (13.2-15.2) 06/10/20 08:17 Plt Count 115 K/mm3 (140-440) L 06/10/20 08:17 Lymph % (Auto) Extractor Puller 06/07/20 12:13 [place] % (Auto) Extractor Puller 06/07/20 12:13 Eos % (Auto) Extractor Puller 06/07/20 12:13 Baso % (Auto) Extractor Puller 06/07/20 12:13 Lymph # Extractor Puller 06/07/20 12:13 [place] # Extractor Puller 06/07/20 12:13 Eos # Extractor Puller 06/07/20 12:13 Baso # Extractor Puller 06/07/20 12:13 Add Manual Diff Complete 06/09/20 14:06 Total Counted 100 06/09/20 14:06 Seg Neutrophils % Extractor Puller 06/09/20 14:06 Seg Neuts % (Manual) 82.0 % (40.0-70.0) H 06/09/20 14:06 Band Neutrophils % 0 % 06/09/20 14:06 Lymphocytes % (Manual) 11.0 % (13.4-35.0) L 06/09/20 14:06 Reactive Lymphs % (Man) 0 % 06/09/20 14:06 Monocytes % (Manual) 7.0 % (0.0-7.3) 06/09/20 14:06 Eosinophils % (Manual) 0 % (0.0-4.3) 06/09/20 14:06 Basophils % (Manual) 0 % (0.0-1.8) 06/09/20 14:06 Metamyelocytes % 0 % 06/09/20 14:06 Myelocytes % 0 % 06/09/20 14:06 Promyelocytes % 0 % 06/09/20 14:06 Blast Cells % 0 % 06/09/20 14:06 Nucleated RBC % Not Reportable 06/09/20 14:06 Seg Neutrophils # Extractor Puller 06/07/20 12:13 Seg Neutrophils # Man 13.5 K/mm3 (1.8-7.7) H 06/09/20 14:06 Band Neutrophils # 0.0 K/mm3 06/09/20 14:06 Lymphocytes # (Manual) 1.8 K/mm3 (1.2-5.4) 06/09/20 14:06 Abs React Lymphs (Man) 0.0 K/mm3 06/09/20 14:06 Monocytes # (Manual) 1.2 K/mm3 (0.0-0.8) H 06/09/20 14:06 Eosinophils # (Manual) 0.0 K/mm3 (0.0-0.4) 06/09/20 14:06 Basophils # (Manual) 0.0 K/mm3 (0.0-0.1) 06/09/20 14:06 Metamyelocytes # 0.0 K/mm3 06/09/20 14:06 Myelocytes # 0.0 K/mm3 06/09/20 14:06 Promyelocytes # 0.0 K/mm3 06/09/20 14:06 Blast Cells # 0.0 K/mm3 06/09/20 14:06 WBC Morphology Not Reportable 06/09/20 14:06 Hypersegmented Neuts Not Reportable 06/09/20 14:06 Hyposegmented Neuts Not Reportable 06/09/20 14:06 Hypogranular Neuts Not Reportable 06/09/20 14:06 Smudge Cells Not Reportable 06/09/20 14:06 Toxic Granulation Not Reportable 06/09/20 14:06 Toxic Vacuolation Not Reportable 06/09/20 14:06 Dohle Bodies Not Reportable 06/09/20 14:06 Pelger-Huet Anomaly Not Reportable 06/09/20 14:06 Manuel Rods Not Reportable 06/09/20 14:06 Platelet Estimate Not Reportable 06/09/20 14:06 Clumped Platelets Not Reportable 06/09/20 14:06 Plt Clumps, EDTA Not Reportable 06/09/20 14:06 Large Platelets Not Reportable 06/09/20 14:06 Giant Platelets Not Reportable 06/09/20 14:06 Platelet Satelliting Not Reportable 06/09/20 14:06 Plt Morphology Comment Not Reportable 06/09/20 14:06 RBC Morphology Normal 06/09/20 14:06 Dimorphic RBCs Not Reportable 06/09/20 14:06 Polychromasia Not Reportable 06/09/20 14:06 Hypochromasia Not Reportable 06/09/20 14:06 Poikilocytosis Not Reportable 06/09/20 14:06 Anisocytosis Not Reportable 06/09/20 14:06 Microcytosis Not Reportable 06/09/20 14:06 Macrocytosis Not Reportable 06/09/20 14:06 Spherocytes Not Reportable 06/09/20 14:06 Pappenheimer Bodies Not Reportable 06/09/20 14:06 Sickle Cells Not Reportable 06/09/20 14:06 Target Cells Not Reportable 06/09/20 14:06 Tear Drop Cells Not Reportable 06/09/20 14:06 Ovalocytes Not Reportable 06/09/20 14:06 Helmet Cells Not Reportable 06/09/20 14:06 [place] Bodies Not Reportable 06/09/20 14:06 [place] Rings Not Reportable 06/09/20 14:06 [place] Cells Not Reportable 06/09/20 14:06 Bite Cells Not Reportable 06/09/20 14:06 Crenated Cell Not Reportable 06/09/20 14:06 Elliptocytes Not Reportable 06/09/20 14:06 Acanthocytes (Spur) Not Reportable 06/09/20 14:06 Rouleaux Not Reportable 06/09/20 14:06 Hemoglobin C Crystals Not Reportable 06/09/20 14:06 Schistocytes Not Reportable 06/09/20 14:06 Malaria parasites Not Reportable 06/09/20 14:06 Scott Bodies Not Reportable 06/09/20 14:06 Hem Pathologist Commnt No 06/09/20 14:06 PT 14.1 Sec. (12.2-14.9) 06/07/20 12:13 INR 1.07 (0.87-1.13) 06/07/20 12:13 D-Dimer 742.10 ng/mlDDU (0-234) H 06/07/20 12:13 Sodium 141 mmol/L (137-145) 06/10/20 08:17 Potassium 3.9 mmol/L (3.6-5.0) 06/10/20 08:17 Chloride 98.3 mmol/L (98-107) 06/10/20 08:17 Carbon Dioxide 32 mmol/L (22-30) H 06/10/20 08:17 Anion Gap 15 mmol/L 06/10/20 08:17 BUN 22 mg/dL (9-20) H 06/10/20 08:17 Creatinine 0.6 mg/dL (0.8-1.5) L 06/10/20 08:17 Estimated GFR > 60 ml/min 06/10/20 08:17 BUN/Creatinine Ratio 37 % 06/10/20 08:17 Glucose 142 mg/dL (75-100) H 06/10/20 08:17 Lactic Acid 1.70 mmol/L (0.7-2.0) 06/07/20 12:13 Calcium 8.5 mg/dL (8.4-10.2) 06/10/20 08:17 Magnesium 2.70 mg/dL (1.7-2.3) H 06/07/20 12:13 Ferritin 397.3 ng/mL (13.0-400.0) 06/07/20 12:13 Total Bilirubin 0.30 mg/dL (0.1-1.2) 06/08/20 04:53 AST 57 units/L (5-40) H 06/08/20 04:53 ALT 65 units/L (7-56) H 06/08/20 04:53 Alkaline Phosphatase 79 units/L (35-129) 06/08/20 04:53 Lactate Dehydrogenase 369 units/L (91-180) H 06/07/20 12:13 Total Creatine Kinase 104 units/L (55-170) 06/07/20 12:13 C-Reactive Protein 6.70 mg/dL (0.00-1.30) H 06/07/20 12:13 Total Protein 6.3 g/dL (6.3-8.2) 06/08/20 04:53 Albumin 2.9 g/dL (3.9-5) L 06/08/20 04:53 Albumin/Globulin Ratio 0.9 % 06/08/20 04:53 Procalcitonin 0.24 ng/mL (<0.15) 06/07/20 12:13 Coronavirus (PCR) Negative (Negative) 06/08/20 Unknown Blood Type A POSITIVE 06/07/20 12:16 Antibody Screen Negative 06/07/20 12:16 Microbiology: Microbiology 06/07/20 12:13 Peripheral/Venous Blood Culture - Preliminary NO GROWTH AFTER 4 DAYS 06/07/20 12:13 Peripheral/Venous Blood Culture - Preliminary NO GROWTH AFTER 4 DAYS - Diagnostic Impressions Diagnostic Impressions: Echocardiogram 06/09/20 00:01 Transthoracic Echocardiogram Indication: SOB BP: 134/74 HR: 72 Conclusions *The right heart chambers are both at least moderately dilated. *There is mild to moderate tricuspid regurgitation. *There is evidence of mild pulmonary hypertension. *The right ventricular systolic pressure is calculated at 37 mmHg. *Left ventricular chamber size and systolic function are normal. *The estimated ejection fraction is 50-55%. *The left atrium is mildly dilated. *There is mild mitral regurgitation. Findings Procedure Info: The study quality is technically difficult. The study is technically limited due to the patient's history of COPD. Left Ventricle: The left ventricular chamber size is normal. There is no left ventricular hypertrophy. Global left ventricular systolic function is at the lower limits of normal. The estimated ejection fraction is 50-55%. Left Atrium: The left atrium is mildly dilated. Right Ventricle: The right ventricle is moderately dilated. The right ventricular global systolic function is moderately reduced. Right Atrium: The right atrium is moderate to severely dilated. Aortic Valve: The aortic valve is trileaflet. The aortic valve leaflets are mildly thickened. There is no evidence of aortic regurgitation. There is no evidence of aortic stenosis. Mitral Valve: The mitral valve leaflets are mildly thickened. There is mild mitral regurgitation. There is no evidence of mitral stenosis. Tricuspid Valve: The tricuspid valve leaflets are mildly thickened. There is mild to moderate tricuspid regurgitation. The right ventricular systolic pressure is calculated at 37 mmHg. There is evidence of mild pulmonary hypertension. Pericardium: There is no pericardial effusion. Aorta: There is no dilatation of the ascending aorta. There is no dilatation of the aortic root. Venous: The inferior vena cava appears normal in size. Measurements Chambers 2D Name Value Normal Range IVSd (2D) 0.75 cm (0.6 - 1.1) LVPWd (2D) 0.69 cm (0.6 - 1.1) LVIDd (2D) 4.56 cm (3.7 - 5.6) LVIDs (2D) 3.19 cm (2 - 3.8) LV FS (2D) 30.14 % - EF Teichholz (2D) 57.51 % - Ao root diameter (2D) 2.81 cm (2 - 3.7) Volumes/Mass Name Value Normal Range LA ESV SP 4CH (A/L) 23.97 ml - LA ESV SP 2CH (A/L) 30.03 ml - LA ESV BP (A/L) 27.07 ml - LA ESV BP (A/L) index 16.21 ml/m2 - LA ESV SP 4CH (MOD) 19.44 ml - LA ESV SP 2CH (MOD) 27.6 ml - LA ESV BP (MOD) 23.25 ml - LA ESV BP (MOD) index 13.92 ml/m2 - LV EDV SP 4CH (MOD) 61.87 ml - LV ESV SP 4CH (MOD) 21.74 ml - EF SP 4CH (MOD) 64.86 % - LV EDV SP 2CH (MOD) 58.35 ml - LV ESV SP 2CH (MOD) 18.85 ml - EF SP 2CH (MOD) 67.68 % - LV EDV BP 59.85 ml - LV ESV BP 21.29 ml - BP EF (MOD) 64.43 % - Diastolic/Systolic Function Name Value Normal Range MV E-wave Vmax 0.89 m/sec - MV deceleration time 225.66 msec - MV A-wave Vmax 0.7 m/sec - MV E:A ratio 1.27 ratio - Aortic Valve Name Value Normal Range AV Vmax 1.3 m/sec - AV VTI 26.54 cm - AV peak gradient 6.76 mmHg - AV mean gradient 3.28 mmHg - LVOT diameter 2.02 cm - LVOT Vmax 1.1 m/sec - LVOT VTI 22.1 cm - LVOT peak gradient 4.8 mmHg - LVOT mean gradient 1.73 mmHg - SV LVOT 70.98 ml - KEMI (continuity Vmax) 2.71 cm2 - KEMI (continuity VTI) 2.67 cm2 - Mitral Valve Name Value Normal Range MV Vmax 0.96 m/sec - MV VTI 24.34 cm - MV peak gradient 3.68 mmHg - MV mean gradient 1.4 mmHg - MV PHT 64.07 msec - MVA (PHT) 3.43 cm2 - MVA (continuity VTI) 2.92 cm2 - Tricuspid Valve Name Value Normal Range TR Vmax 2.92 m/sec - TR peak gradient 34 mmHg - RAP 3 mmHg - RVSP 37 mmHg - IVC diameter 2 cm (1.2 - 2.3) Pulmonic Valve/Qp:Qs Name Value Normal Range PV Vmax 0.85 m/sec - PV VTI 16.92 cm - PV peak gradient 2.87 mmHg - PV mean gradient 1.05 mmHg - RVOT Vmax 0.66 m/sec - RVOT VTI 12.39 cm - RVOT peak gradient 1.74 mmHg - Espitia/IV: Voiding Method Urinal IV Catheter Type [Right INT / Saline Lock Forearm] Active Medications - Current Medications Current Medications: Generic Name Dose Route Start Last Admin Trade Name Freq PRN Reason Stop Dose Admin Acetaminophen 650 mg 06/07/20 12:57 Tylenol PO Q6H PRN Pain MILD(1-3)/Fever >100.5/CANALES Diltiazem HCl 30 mg 06/07/20 18:00 06/11/20 13:56 Cardizem PO 30 mg Q6HR SANDRA Administration Ceftriaxone Sodium 2 gm in 100 mls @ 200 mls/hr 06/08/20 10:00 06/11/20 09:47 Rocephin/Ns 2 Gm/100 Ml IV 06/12/20 10:29 200 mls/hr Q24HR SANDRA Administration Protocol Methylprednisolone Sodium Succinate 60 mg 06/11/20 13:00 06/11/20 13:56 Solu-Medrol IV 60 mg Q6HR SANDRA Administration Sodium Chloride 10 ml 06/07/20 22:00 06/11/20 13:56 Sodium Chloride Flush Syringe 10 Ml IV 10 ml BID SANDRA Administration Sodium Chloride 10 ml 06/07/20 12:57 Sodium Chloride Flush Syringe 10 Ml IV PRN PRN LINE FLUSH Tamsulosin HCl 0.4 mg 06/08/20 10:00 06/11/20 09:47 Flomax PO 0.4 mg DAILY SANDRA Administration
--- NOTE | 2020-06-11 17:33 | XRay Report ---
CHEST 1 VIEW INDICATION / CLINICAL INFORMATION: hypoxia. COMPARISON: 06/07/2020 FINDINGS: SUPPORT DEVICES: None. HEART / MEDIASTINUM: No significant abnormality. LUNGS / PLEURA: Bilateral airspace disease No pneumothorax. ADDITIONAL FINDINGS: No significant additional findings. IMPRESSION: Airspace disease in the right lower lung has improved slightly since 06/07/2020. Airspace disease diff usely in the left lung has worsened during the same interval. Signer Name: Sundeep Branch MD FACR Signed: 06/11/2020 5:29 PM Workstation Name: [id number] [id number]
[2020-06-11] MEDS: APIXABAN 5 MG TAB PO SCH (21:13)
[2020-06-12] MEDS: methylPREDNISolone Sod Succinate 125 MG/2 ML INJ IV SCH ×5 (00:56→23:28)
[2020-06-12] MEDS: dilTIAZem 30 MG TAB PO SCH ×5 (00:56→23:28)
[2020-06-12 05:23] LABS: Hematocrit 28.9 % (35.5-45.6); Hemoglobin 9.7 gm/dl (11.8-15.2); Mean Corpuscular HGB Conc 34 % (32-34); Mean Corpuscular Volume 92 fl (84-94); Platelet Count 205 K/mm3 (140-440); Red Blood Count 3.15 M/mm3 (3.65-5.03)
[2020-06-12 05:46] LABS: Alanine Aminotransferase 59 units/L (7-56); Albumin 2.8 g/dL (3.9-5); Blood Urea Nitrogen 23 mg/dL (9-20); Calcium 8.3 mg/dL (8.4-10.2); Hemolysis Index 1
[2020-06-12 05:47] LABS: BUN/Creatinine Ratio 38
[2020-06-12 06:27] LABS: Band Neutrophils # (Manual) 0.3 K/mm3; Basophils % (Manual) 0 % (0.0-1.8); Eosinophils % (Manual) 0 % (0.0-4.3); Monocytes % (Manual) 0 % (0.0-7.3); Total Cells Counted 100
[2020-06-12 06:36] LABS: Macrocytosis Few; Ovalocytes Rare
[2020-06-12 06:37] LABS: Platelet Estimate Consistent w Auto
--- NOTE | 2020-06-12 07:36 | Progress Note ---
Assessment and Plan 79 y/o male with pulmonary fibrosis and prior history of lung CA, admitted with acute hypoxic respiratory failure, worsening of fibrotic lung disease and concern for COVID 06/12/2020: Lasix today BP is better this am. Will only give 20. Yesterday was the first day recorded as being negative. Continue steroids at current dosing for now. Will attempt to wean as soon as oxygen requirement improves. Given response to steroids, patient could have ITP or some form of autoimmune related thrombocytopenia but would need bone marrow biopsy to determine this. Can follow up with [facility] as an outpatient as now I don't think think Heme comes to this facility. BP and volume control for Pulm HTN. Prognosis remains guarded. 1. COVID negative. 2. 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 Diresis is really the only thing to offer, but will have to hold today given BP. 3. I did increase his IV steroids today since I cannot diurese today to see if this helps. 4. Wean FiO2 for sats >88% 5. Platelet count improved drastically. 6. Will discuss with patient code status, given his degree of lung disease, if he is intubated, the likely aguilera of him coming off successfully is very very low. Subjective Date of service: 06/12/20 Principal diagnosis: Acute hypoxic respiratory failure Interval history: Tolerated increase in Steroids yesterday as well as lasix. FiO2 weaned down to 90%. Still on HFNC. Objective Vital Signs - 12hr 06/11/20 06/11/20 06/11/20 21:13 22:00 22:38 Temperature 97.4 F L Pulse Rate 73 Respiratory 20 Rate Blood Pressure 114/55 O2 Sat by Pulse 97 95 91 Oximetry 06/12/20 06/12/20 06/12/20 00:33 00:56 03:40 Temperature Pulse Rate 62 70 Respiratory Rate Blood Pressure 113/54 O2 Sat by Pulse 97 Oximetry 06/12/20 06/12/20 06/12/20 05:13 05:38 05:44 Temperature 97.4 F L Pulse Rate 77 77 Respiratory 22 Rate Blood Pressure 121/61 121/61 O2 Sat by Pulse 84 96 Oximetry Constitutional: no acute distress Eyes: non-icteric ENT: oropharynx moist Neck: supple Effort: mildly labored Ascultation: Bilateral: diminished breath sounds, rales Cardiovascular: regular rate and rhythm (Tachycardia noted) Gastrointestinal: normoactive bowel sounds, soft, non-tender, non-distended Integumentary: other (Petechial rash present) Extremities: other (Early clubbing present. Petechial rash lower extremities) Neurologic: normal mental status, non-focal exam CBC and BMP: 06/12/20 04:40 06/12/20 04:40 ABG, PT/INR, D-dimer: PT/INR, D-dimer PT 14.1 Sec. (12.2-14.9) 06/07/20 12:13 INR 1.07 (0.87-1.13) 06/07/20 12:13 D-Dimer 742.10 ng/mlDDU (0-234) H 06/07/20 12:13 Abnormal lab findings: Abnormal Labs 06/07/20 06/07/20 06/07/20 12:13 12:13 12:13 WBC RBC Hgb 11.7 L Hct 34.3 L Plt Count 6 L* Seg Neuts % (Manual) 93.0 H Lymphocytes % (Manual) 4.0 L Seg Neutrophils # Man Lymphocytes # (Manual) 0.2 L Monocytes # (Manual) D-Dimer 742.10 H Sodium 136 L Carbon Dioxide BUN 21 H Creatinine Glucose 138 H Calcium Magnesium 2.70 H AST 80 H ALT 71 H Lactate Dehydrogenase C-Reactive Protein Total Protein 6.1 L Albumin 3.2 L 06/07/20 06/07/20 06/08/20 12:13 15:59 04:53 WBC RBC 3.39 L 3.17 L Hgb 10.5 L 9.7 L Hct 31.1 L 28.9 L Plt Count 6 L* 11 L* Seg Neuts % (Manual) 93.0 H Lymphocytes % (Manual) 5.0 L Seg Neutrophils # Man 8.5 H Lymphocytes # (Manual) 0.5 L Monocytes # (Manual) D-Dimer Sodium Carbon Dioxide BUN Creatinine Glucose 139 H Calcium Magnesium AST ALT Lactate Dehydrogenase 369 H C-Reactive Protein 6.70 H Total Protein Albumin 06/08/20 06/09/20 06/10/20 04:53 14:06 08:17 WBC 16.5 H 12.3 H RBC 3.18 L 3.31 L Hgb 9.8 L 10.4 L Hct 29.5 L 30.5 L Plt Count 84 L D 115 L Seg Neuts % (Manual) 82.0 H Lymphocytes % (Manual) 11.0 L Seg Neutrophils # Man 13.5 H Lymphocytes # (Manual) Monocytes # (Manual) 1.2 H D-Dimer Sodium 136 L Carbon Dioxide BUN 22 H Creatinine Glucose 150 H Calcium 8.3 L Magnesium AST 57 H ALT 65 H Lactate Dehydrogenase C-Reactive Protein Total Protein Albumin 2.9 L 06/10/20 06/12/20 06/12/20 08:17 04:40 04:40 WBC RBC 3.15 L Hgb 9.7 L Hct 28.9 L Plt Count Seg Neuts % (Manual) 94.0 H Lymphocytes % (Manual) 2.0 L Seg Neutrophils # Man 8.0 H Lymphocytes # (Manual) 0.2 L Monocytes # (Manual) D-Dimer Sodium Carbon Dioxide 32 H 32 H BUN 22 H 23 H Creatinine 0.6 L 0.6 L Glucose 142 H 143 H Calcium 8.3 L Magnesium AST ALT 59 H Lactate Dehydrogenase C-Reactive Protein Total Protein 5.3 L Albumin 2.8 L
[2020-06-12] MEDS ORDERED: FUROSEMIDE 20 MG/2 ML INJ IV ONE (08:00)
[2020-06-12] MEDS: cefTRIAXone/NS 2 GM/100 ML 2 GM/100 ML BAG IV SCH (10:00)
[2020-06-12] MEDS: APIXABAN 5 MG TAB PO SCH ×2 (10:00→22:28)
[2020-06-12] MEDS: TAMSULOSIN 0.4 MG CAP PO SCH (10:00)
--- NOTE | 2020-06-12 11:33 | Progress Note ---
Assessment and Plan Assessment and plan: Patient is a 79-year-old male with a history of lung cancer, pulmonary fibrosis admitted with dyspnea on exertion for about 3 days prior to presentation. Chest imaging here showed bilateral pulmonary infiltrates. Here patient started on antibiotics. Cultures ordered in the ER. Started on diuretics and steroids as well. 06/10. Patient is COVID 19 test negative. This morning, patient feels better. He says he does not wish to resume any chemotherapy after discharge. He has an oncologist. He does not use oxygen at home and will most likely need oxygen on discharge. 06/11. Patient states that he feels better. He is still needing oxygen to maintain sats. Steroids increased today per pulmonology. Patient will need oxygen at discharge. ID recommendations appreciated. Plan to complete an [id number] therapy 06/12. Chest x-ray shows slightly worsened left airspace disease. Patient still on steroids. He is able to go home. Ordered Lasix 40 IV one-time dose Vitals reviewed. Patient Problems (1) Acute hypoxemic respiratory failure Current Visit: Yes Status: Acute Plan to address problem: Continue oxygen supplementation for now and wean. He will need to a walk test to determine oxygen need prior to discharge. Repeat chest x-ray shows slightly worsened left airspace disease. Lasix one-time dose ordered. Pulmonology recs appreciated (2) Pneumonia Current Visit: Yes Status: Acute Qualifiers: Laterality: bilateral Plan to address problem: Pneumonia protocol: Antibiotics - Complete on 06/12. ID recommendations appreciated. (3) Suspected 2019 novel coronavirus infection -negative (4) Lung cancer Current Visit: Yes Status: Acute Plan to address problem: Outpatient oncology follow-up, supportive care. Patient is status post chemotherapy. (5) Atrial fibrillation Current Visit: Yes Status: Acute Plan to address problem: Continue with rate control medication. Eliquis resumed. Monitor platelets (6) Hypertension Current Visit: No Status: Acute Qualifiers: Hypertension type: essential hypertension Qualified Code(s): I10 - Essential (primary) hypertension Plan to address problem: Monitor blood pressure every shift, continue medical management. (7) Thrombocytopenia Current Visit: Yes Status: Resolved Plan to address problem: This has resolved after platelet transfusion (8) Nicotine dependence Current Visit: No Status: Acute Qualifiers: Nicotine product type: cigarettes Substance use status: in withdrawal Qualified Code(s): F17.213 - Nicotine dependence, cigarettes, with withdrawal Plan to address problem: Smoking cessation counseling, supportive care, behavior change counseling, +15 minutes. (9) DVT prophylaxis Current Visit: Yes Status: Acute Plan to address problem: SCD to bilateral lower extremities while in bed. On eliquis (10) Advance care planning Current Visit: No Status: Acute Plan to address problem: Disease education conducted, patient prognosis discussed, patient is full code, patient knowledges understanding and agreement with care plan, +30 minutes. History Interval history: see below. Hospitalist Physical - Constitutional Vitals: Temp Pulse Resp BP Pulse Ox 97.4 F L 77 22 121/61 93 06/12/20 05:13 06/12/20 05:44 06/12/20 05:13 06/12/20 05:44 06/12/20 09:07 General appearance: Present: no acute distress, well-nourished - EENT Eyes: Present: PERRL, EOM intact - Neck Neck: Present: supple, normal ROM - Respiratory Respiratory: left: rales, bilateral: rhonchi - Cardiovascular Heart Sounds: Present: S1 & S2 - Extremities Extremities: No edema - Abdominal General gastrointestinal: soft, non-tender, normal bowel sounds - Psychiatric Psychiatric: appropriate mood/affect - Neurologic Neurologic: CNII-XII intact Results - Labs CBC & Chem 7: 06/12/20 04:40 06/12/20 04:40 Labs: Laboratory Last Values WBC 8.5 K/mm3 (4.5-11.0) 06/12/20 04:40 RBC 3.15 M/mm3 (3.65-5.03) L 06/12/20 04:40 Hgb 9.7 gm/dl (11.8-15.2) L 06/12/20 04:40 Hct 28.9 % (35.5-45.6) L 06/12/20 04:40 MCV 92 fl (84-94) 06/12/20 04:40 MCH 31 pg (28-32) 06/12/20 04:40 MCHC 34 % (32-34) 06/12/20 04:40 RDW 15.0 % (13.2-15.2) 06/12/20 04:40 Plt Count 205 K/mm3 (140-440) 06/12/20 04:40 Lymph % (Auto) Flight Test Engineer 06/07/20 12:13 Bee % (Auto) Flight Test Engineer 06/07/20 12:13 Eos % (Auto) Flight Test Engineer 06/07/20 12:13 Baso % (Auto) Flight Test Engineer 06/07/20 12:13 Lymph # Flight Test Engineer 06/07/20 12:13 Bee # Flight Test Engineer 06/07/20 12:13 Eos # Flight Test Engineer 06/07/20 12:13 Baso # Flight Test Engineer 06/07/20 12:13 Add Manual Diff Complete 06/12/20 04:40 Total Counted 100 06/12/20 04:40 Seg Neutrophils % Flight Test Engineer 06/12/20 04:40 Seg Neuts % (Manual) 94.0 % (40.0-70.0) H 06/12/20 04:40 Band Neutrophils % 4.0 % 06/12/20 04:40 Lymphocytes % (Manual) 2.0 % (13.4-35.0) L 06/12/20 04:40 Reactive Lymphs % (Man) 0 % 06/12/20 04:40 Monocytes % (Manual) 0 % (0.0-7.3) 06/12/20 04:40 Eosinophils % (Manual) 0 % (0.0-4.3) 06/12/20 04:40 Basophils % (Manual) 0 % (0.0-1.8) 06/12/20 04:40 Metamyelocytes % 0 % 06/12/20 04:40 Myelocytes % 0 % 06/12/20 04:40 Promyelocytes % 0 % 06/12/20 04:40 Blast Cells % 0 % 06/12/20 04:40 Nucleated RBC % Not Reportable 06/12/20 04:40 Seg Neutrophils # Flight Test Engineer 06/07/20 12:13 Seg Neutrophils # Man 8.0 K/mm3 (1.8-7.7) H 06/12/20 04:40 Band Neutrophils # 0.3 K/mm3 06/12/20 04:40 Lymphocytes # (Manual) 0.2 K/mm3 (1.2-5.4) L 06/12/20 04:40 Abs React Lymphs (Man) 0.0 K/mm3 06/12/20 04:40 Monocytes # (Manual) 0.0 K/mm3 (0.0-0.8) 06/12/20 04:40 Eosinophils # (Manual) 0.0 K/mm3 (0.0-0.4) 06/12/20 04:40 Basophils # (Manual) 0.0 K/mm3 (0.0-0.1) 06/12/20 04:40 Metamyelocytes # 0.0 K/mm3 06/12/20 04:40 Myelocytes # 0.0 K/mm3 06/12/20 04:40 Promyelocytes # 0.0 K/mm3 06/12/20 04:40 Blast Cells # 0.0 K/mm3 06/12/20 04:40 WBC Morphology Not Reportable 06/12/20 04:40 Hypersegmented Neuts Not Reportable 06/12/20 04:40 Hyposegmented Neuts Not Reportable 06/12/20 04:40 Hypogranular Neuts Not Reportable 06/12/20 04:40 Smudge Cells Not Reportable 06/12/20 04:40 Toxic Granulation Not Reportable 06/12/20 04:40 Toxic Vacuolation Not Reportable 06/12/20 04:40 Dohle Bodies Not Reportable 06/12/20 04:40 Pelger-Huet Anomaly Not Reportable 06/12/20 04:40 Manuel Rods Not Reportable 06/12/20 04:40 Platelet Estimate Consistent w auto 06/12/20 04:40 Clumped Platelets Not Reportable 06/12/20 04:40 Plt Clumps, EDTA Not Reportable 06/12/20 04:40 Large Platelets Not Reportable 06/12/20 04:40 Giant Platelets Not Reportable 06/12/20 04:40 Platelet Satelliting Not Reportable 06/12/20 04:40 Plt Morphology Comment Not Reportable 06/12/20 04:40 RBC Morphology Not Reportable 06/12/20 04:40 Dimorphic RBCs Not Reportable 06/12/20 04:40 Polychromasia Not Reportable 06/12/20 04:40 Hypochromasia Not Reportable 06/12/20 04:40 Poikilocytosis Not Reportable 06/12/20 04:40 Anisocytosis Not Reportable 06/12/20 04:40 Microcytosis Not Reportable 06/12/20 04:40 Macrocytosis Few 06/12/20 04:40 Spherocytes Not Reportable 06/12/20 04:40 Pappenheimer Bodies Not Reportable 06/12/20 04:40 Sickle Cells Not Reportable 06/12/20 04:40 Target Cells Not Reportable 06/12/20 04:40 Tear Drop Cells Not Reportable 06/12/20 04:40 Ovalocytes Rare 06/12/20 04:40 Helmet Cells Not Reportable 06/12/20 04:40 [place] Bodies Not Reportable 06/12/20 04:40 Rolla Rings Not Reportable 06/12/20 04:40 Mil Cells Not Reportable 06/12/20 04:40 Bite Cells Not Reportable 06/12/20 04:40 Crenated Cell Not Reportable 06/12/20 04:40 Elliptocytes Not Reportable 06/12/20 04:40 Acanthocytes (Spur) Not Reportable 06/12/20 04:40 Rouleaux Not Reportable 06/12/20 04:40 Hemoglobin C Crystals Not Reportable 06/12/20 04:40 Schistocytes Not Reportable 06/12/20 04:40 Malaria parasites Not Reportable 06/12/20 04:40 Scott Bodies Not Reportable 06/12/20 04:40 Hem Pathologist Commnt No 06/12/20 04:40 PT 14.1 Sec. (12.2-14.9) 06/07/20 12:13 INR 1.07 (0.87-1.13) 06/07/20 12:13 D-Dimer 742.10 ng/mlDDU (0-234) H 06/07/20 12:13 Sodium 139 mmol/L (137-145) 06/12/20 04:40 Potassium 4.0 mmol/L (3.6-5.0) 06/12/20 04:40 Chloride 99.0 mmol/L (98-107) 06/12/20 04:40 Carbon Dioxide 32 mmol/L (22-30) H 06/12/20 04:40 Anion Gap 12 mmol/L 06/12/20 04:40 BUN 23 mg/dL (9-20) H 06/12/20 04:40 Creatinine 0.6 mg/dL (0.8-1.5) L 06/12/20 04:40 Estimated GFR > 60 ml/min 06/12/20 04:40 BUN/Creatinine Ratio 38 % 06/12/20 04:40 Glucose 143 mg/dL (75-100) H 06/12/20 04:40 Lactic Acid 1.70 mmol/L (0.7-2.0) 06/07/20 12:13 Calcium 8.3 mg/dL (8.4-10.2) L 06/12/20 04:40 Magnesium 2.70 mg/dL (1.7-2.3) H 06/07/20 12:13 Ferritin 397.3 ng/mL (13.0-400.0) 06/07/20 12:13 Total Bilirubin 0.40 mg/dL (0.1-1.2) 06/12/20 04:40 AST 23 units/L (5-40) 06/12/20 04:40 ALT 59 units/L (7-56) H 06/12/20 04:40 Alkaline Phosphatase 75 units/L (35-129) 06/12/20 04:40 Lactate Dehydrogenase 369 units/L (91-180) H 06/07/20 12:13 Total Creatine Kinase 104 units/L (55-170) 06/07/20 12:13 C-Reactive Protein 6.70 mg/dL (0.00-1.30) H 06/07/20 12:13 Total Protein 5.3 g/dL (6.3-8.2) L 06/12/20 04:40 Albumin 2.8 g/dL (3.9-5) L 06/12/20 04:40 Albumin/Globulin Ratio 1.1 % 06/12/20 04:40 Procalcitonin 0.24 ng/mL (<0.15) 06/07/20 12:13 Coronavirus (PCR) Negative (Negative) 06/08/20 Unknown Blood Type A POSITIVE 06/07/20 12:16 Antibody Screen Negative 06/07/20 12:16 Microbiology: Microbiology 06/07/20 12:13 Peripheral/Venous Blood Culture - Preliminary NO GROWTH AFTER 4 DAYS 06/07/20 12:13 Peripheral/Venous Blood Culture - Preliminary NO GROWTH AFTER 4 DAYS - Diagnostic Impressions Diagnostic Impressions: Echocardiogram 06/09/20 00:01 Transthoracic Echocardiogram Indication: SOB BP: 134/74 HR: 72 Conclusions *The right heart chambers are both at least moderately dilated. *There is mild to moderate tricuspid regurgitation. *There is evidence of mild pulmonary hypertension. *The right ventricular systolic pressure is calculated at 37 mmHg. *Left ventricular chamber size and systolic function are normal. *The estimated ejection fraction is 50-55%. *The left atrium is mildly dilated. *There is mild mitral regurgitation. Findings Procedure Info: The study quality is technically difficult. The study is technically limited due to the patient's history of COPD. Left Ventricle: The left ventricular chamber size is normal. There is no left ventricular hypertrophy. Global left ventricular systolic function is at the lower limits of normal. The estimated ejection fraction is 50-55%. Left Atrium: The left atrium is mildly dilated. Right Ventricle: The right ventricle is moderately dilated. The right ventricular global systolic function is moderately reduced. Right Atrium: The right atrium is moderate to severely dilated. Aortic Valve: The aortic valve is trileaflet. The aortic valve leaflets are mildly thickened. There is no evidence of aortic regurgitation. There is no evidence of aortic stenosis. Mitral Valve: The mitral valve leaflets are mildly thickened. There is mild mitral regurgitation. There is no evidence of mitral stenosis. Tricuspid Valve: The tricuspid valve leaflets are mildly thickened. There is mild to moderate tricuspid regurgitation. The right ventricular systolic pressure is calculated at 37 mmHg. There is evidence of mild pulmonary hypertension. Pericardium: There is no pericardial effusion. Aorta: There is no dilatation of the ascending aorta. There is no dilatation of the aortic root. Venous: The inferior vena cava appears normal in size. Measurements Chambers 2D Name Value Normal Range IVSd (2D) 0.75 cm (0.6 - 1.1) LVPWd (2D) 0.69 cm (0.6 - 1.1) LVIDd (2D) 4.56 cm (3.7 - 5.6) LVIDs (2D) 3.19 cm (2 - 3.8) LV FS (2D) 30.14 % - EF Teichholz (2D) 57.51 % - Ao root diameter (2D) 2.81 cm (2 - 3.7) Volumes/Mass Name Value Normal Range LA ESV SP 4CH (A/L) 23.97 ml - LA ESV SP 2CH (A/L) 30.03 ml - LA ESV BP (A/L) 27.07 ml - LA ESV BP (A/L) index 16.21 ml/m2 - LA ESV SP 4CH (MOD) 19.44 ml - LA ESV SP 2CH (MOD) 27.6 ml - LA ESV BP (MOD) 23.25 ml - LA ESV BP (MOD) index 13.92 ml/m2 - LV EDV SP 4CH (MOD) 61.87 ml - LV ESV SP 4CH (MOD) 21.74 ml - EF SP 4CH (MOD) 64.86 % - LV EDV SP 2CH (MOD) 58.35 ml - LV ESV SP 2CH (MOD) 18.85 ml - EF SP 2CH (MOD) 67.68 % - LV EDV BP 59.85 ml - LV ESV BP 21.29 ml - BP EF (MOD) 64.43 % - Diastolic/Systolic Function Name Value Normal Range MV E-wave Vmax 0.89 m/sec - MV deceleration time 225.66 msec - MV A-wave Vmax 0.7 m/sec - MV E:A ratio 1.27 ratio - Aortic Valve Name Value Normal Range AV Vmax 1.3 m/sec - AV VTI 26.54 cm - AV peak gradient 6.76 mmHg - AV mean gradient 3.28 mmHg - LVOT diameter 2.02 cm - LVOT Vmax 1.1 m/sec - LVOT VTI 22.1 cm - LVOT peak gradient 4.8 mmHg - LVOT mean gradient 1.73 mmHg - SV LVOT 70.98 ml - KEMI (continuity Vmax) 2.71 cm2 - KEMI (continuity VTI) 2.67 cm2 - Mitral Valve Name Value Normal Range MV Vmax 0.96 m/sec - MV VTI 24.34 cm - MV peak gradient 3.68 mmHg - MV mean gradient 1.4 mmHg - MV PHT 64.07 msec - MVA (PHT) 3.43 cm2 - MVA (continuity VTI) 2.92 cm2 - Tricuspid Valve Name Value Normal Range TR Vmax 2.92 m/sec - TR peak gradient 34 mmHg - RAP 3 mmHg - RVSP 37 mmHg - IVC diameter 2 cm (1.2 - 2.3) Pulmonic Valve/Qp:Qs Name Value Normal Range PV Vmax 0.85 m/sec - PV VTI 16.92 cm - PV peak gradient 2.87 mmHg - PV mean gradient 1.05 mmHg - RVOT Vmax 0.66 m/sec - RVOT VTI 12.39 cm - RVOT peak gradient 1.74 mmHg - Espitia/IV: Voiding Method Urinal IV Catheter Type [Right INT / Saline Lock Forearm] Active Medications - Current Medications Current Medications: Generic Name Dose Route Start Last Admin Trade Name Freq PRN Reason Stop Dose Admin Acetaminophen 650 mg 06/07/20 12:57 Tylenol PO Q6H PRN Pain MILD(1-3)/Fever >100.5/CANALES Apixaban 5 mg 06/11/20 22:00 06/12/20 10:00 Eliquis PO 5 mg Q12HR SANDRA Administration Protocol Diltiazem HCl 30 mg 06/07/20 18:00 06/12/20 05:44 Cardizem PO 30 mg Q6HR SANDRA Administration Methylprednisolone Sodium Succinate 60 mg 06/11/20 13:00 06/12/20 05:44 Solu-Medrol IV 60 mg Q6HR SANDRA Administration Sodium Chloride 10 ml 06/07/20 22:00 06/11/20 21:14 Sodium Chloride Flush Syringe 10 Ml IV 10 ml BID SANDRA Administration Sodium Chloride 10 ml 06/07/20 12:57 Sodium Chloride Flush Syringe 10 Ml IV PRN PRN LINE FLUSH Tamsulosin HCl 0.4 mg 06/08/20 10:00 06/11/20 09:47 Flomax PO 0.4 mg DAILY SANDRA Administration
--- NOTE | 2020-06-12 13:37 | Progress Note ---
Subjective Date of service: 06/12/20 Principal diagnosis: Acute hypoxic respiratory failure Interval history: Afebrile, currently high flow nasal cannula 25/90%. Imaging personally reviewed: Chest x-ray: Right lung has improved whilst left lung has worsened. Objective - Constitutional Vitals: Vital Signs Temp Pulse Resp BP Pulse Ox 97.2 F L 89 24 122/61 98 06/12/20 11:12 06/12/20 11:12 06/12/20 11:12 06/12/20 11:12 06/12/20 11:12 Temperature -Last 24 Hours Temperature 97.2 F Temperature 97.4 F Temperature 97.4 F Temperature 97.8 F - Labs CBC & Chem 7: 06/12/20 04:40 06/12/20 04:40 Labs: Abnormal lab results 06/12/20 06/12/20 Range/Units 04:40 04:40 RBC 3.15 L (3.65-5.03) M/mm3 Hgb 9.7 L (11.8-15.2) gm/dl Hct 28.9 L (35.5-45.6) % Seg Neuts % (Manual) 94.0 H (40.0-70.0) % Lymphocytes % (Manual) 2.0 L (13.4-35.0) % Seg Neutrophils # Man 8.0 H (1.8-7.7) K/mm3 Lymphocytes # (Manual) 0.2 L (1.2-5.4) K/mm3 Carbon Dioxide 32 H (22-30) mmol/L BUN 23 H (9-20) mg/dL Creatinine 0.6 L (0.8-1.5) mg/dL Glucose 143 H (75-100) mg/dL Calcium 8.3 L (8.4-10.2) mg/dL ALT 59 H (7-56) units/L Total Protein 5.3 L (6.3-8.2) g/dL Albumin 2.8 L (3.9-5) g/dL
[2020-06-12] MEDS ORDERED: FUROSEMIDE 40 MG/4 ML INJ IV ONE (14:00)
[2020-06-13] MEDS: methylPREDNISolone Sod Succinate 125 MG/2 ML INJ IV SCH ×3 (05:31→18:09)
[2020-06-13] MEDS: dilTIAZem 30 MG TAB PO SCH ×3 (05:31→18:10)
[2020-06-13] MEDS: APIXABAN 5 MG TAB PO SCH ×2 (10:01→21:10)
[2020-06-13] MEDS: TAMSULOSIN 0.4 MG CAP PO SCH (10:02)
--- NOTE | 2020-06-13 10:19 | Progress Note ---
Assessment and Plan 79 y/o male with pulmonary fibrosis and prior history of lung CA, admitted with acute hypoxic respiratory failure, worsening of fibrotic lung disease and concern for COVID 06/13/2020: Lasix again today. 20mg IV. Suggest checking labs again this weekend. Continue steroids, will not wean down until FiO2 requirement is lower. 06/12/2020: Lasix today BP is better this am. Will only give 20. Yesterday was the first day recorded as being negative. Continue steroids at current dosing for now. Will attempt to wean as soon as oxygen requirement improves. Given response to steroids, patient could have ITP or some form of autoimmune related thrombocytopenia but would need bone marrow biopsy to determine this. Can follow up with heme as an outpatient as now I don't think think Heme comes to this facility. BP and volume control for Pulm HTN. Prognosis remains guarded. 1. COVID negative. 2. 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 Diresis is really the only thing to offer, but will have to hold today given BP. 3. I did increase his IV steroids today since I cannot diurese today to see if this helps. 4. Wean FiO2 for sats >88% 5. Platelet count improved drastically. 6. Will discuss with patient code status, given his degree of lung disease, if he is intubated, the likely aguil[place] of him coming off successfully is very very low. Subjective Date of service: 06/13/20 Principal diagnosis: Acute hypoxic respiratory failure Interval history: Still on HFNC at 90%. Sats in the mid 90's. Should have room to decrease FiO2. Objective Vital Signs - 12hr 06/12/20 06/12/20 06/13/20 22:54 23:28 05:00 Temperature 97.6 F Pulse Rate 63 63 Respiratory 18 Rate Blood Pressure 134/70 134/70 O2 Sat by Pulse 96 95 Oximetry 06/13/20 06:18 Temperature 97.5 F L Pulse Rate 71 Respiratory 18 Rate Blood Pressure 137/69 O2 Sat by Pulse 92 Oximetry Constitutional: no acute distress Eyes: non-icteric ENT: oropharynx moist Neck: supple Effort: mildly labored Ascultation: Bilateral: diminished breath sounds, rales Cardiovascular: regular rate and rhythm (Tachycardia noted) Gastrointestinal: normoactive bowel sounds, soft, non-tender, non-distended Integumentary: other (Petechial rash present) Extremities: other (Early clubbing present. Petechial rash lower extremities) Neurologic: normal mental status, non-focal exam CBC and BMP: 06/12/20 04:40 06/12/20 04:40 ABG, PT/INR, D-dimer: PT/INR, D-dimer PT 14.1 Sec. (12.2-14.9) 06/07/20 12:13 INR 1.07 (0.87-1.13) 06/07/20 12:13 D-Dimer 742.10 ng/mlDDU (0-234) H 06/07/20 12:13 Abnormal lab findings: Abnormal Labs 06/07/20 06/07/20 06/07/20 12:13 12:13 12:13 WBC RBC Hgb 11.7 L Hct 34.3 L Plt Count 6 L* Seg Neuts % (Manual) 93.0 H Lymphocytes % (Manual) 4.0 L Seg Neutrophils # Man Lymphocytes # (Manual) 0.2 L Monocytes # (Manual) D-Dimer 742.10 H Sodium 136 L Carbon Dioxide BUN 21 H Creatinine Glucose 138 H Calcium Magnesium 2.70 H AST 80 H ALT 71 H Lactate Dehydrogenase C-Reactive Protein Total Protein 6.1 L Albumin 3.2 L 06/07/20 06/07/20 06/08/20 12:13 15:59 04:53 WBC RBC 3.39 L 3.17 L Hgb 10.5 L 9.7 L Hct 31.1 L 28.9 L Plt Count 6 L* 11 L* Seg Neuts % (Manual) 93.0 H Lymphocytes % (Manual) 5.0 L Seg Neutrophils # Man 8.5 H Lymphocytes # (Manual) 0.5 L Monocytes # (Manual) D-Dimer Sodium Carbon Dioxide BUN Creatinine Glucose 139 H Calcium Magnesium AST ALT Lactate Dehydrogenase 369 H C-Reactive Protein 6.70 H Total Protein Albumin 06/08/20 06/09/20 06/10/20 04:53 14:06 08:17 WBC 16.5 H 12.3 H RBC 3.18 L 3.31 L Hgb 9.8 L 10.4 L Hct 29.5 L 30.5 L Plt Count 84 L D 115 L Seg Neuts % (Manual) 82.0 H Lymphocytes % (Manual) 11.0 L Seg Neutrophils # Man 13.5 H Lymphocytes # (Manual) Monocytes # (Manual) 1.2 H D-Dimer Sodium 136 L Carbon Dioxide BUN 22 H Creatinine Glucose 150 H Calcium 8.3 L Magnesium AST 57 H ALT 65 H Lactate Dehydrogenase C-Reactive Protein Total Protein Albumin 2.9 L 06/10/20 06/12/20 06/12/20 08:17 04:40 04:40 WBC RBC 3.15 L Hgb 9.7 L Hct 28.9 L Plt Count Seg Neuts % (Manual) 94.0 H Lymphocytes % (Manual) 2.0 L Seg Neutrophils # Man 8.0 H Lymphocytes # (Manual) 0.2 L Monocytes # (Manual) D-Dimer Sodium Carbon Dioxide 32 H 32 H BUN 22 H 23 H Creatinine 0.6 L 0.6 L Glucose 142 H 143 H Calcium 8.3 L Magnesium AST ALT 59 H Lactate Dehydrogenase C-Reactive Protein Total Protein 5.3 L Albumin 2.8 L
[2020-06-13] MEDS ORDERED: FUROSEMIDE 20 MG/2 ML INJ IV SCH (11:00)
--- NOTE | 2020-06-13 11:46 | Progress Note ---
Assessment and Plan Assessment and plan: Patient is a 79-year-old male with a history of lung cancer, pulmonary fibrosis admitted with dyspnea on exertion for about 3 days prior to presentation. Chest imaging here showed bilateral pulmonary infiltrates. Here patient started on antibiotics. Cultures ordered in the ER. Started on diuretics and steroids as well. 06/10. Patient is COVID 19 test negative. This morning, patient feels better. He says he does not wish to resume any chemotherapy after discharge. He has an oncologist. He does not use oxygen at home and will most likely need oxygen on discharge. 06/11. Patient states that he feels better. He is still needing oxygen to maintain sats. Steroids increased today per pulmonology. Patient will need oxygen at discharge. ID recommendations appreciated. Plan to complete an [id number] therapy 06/12. Chest x-ray shows slightly worsened left airspace disease. Patient still on steroids. He wishes to go home. Ordered Lasix 40 IV one-time dose 06/13. Patient feels slightly better today after getting the Lasix. He is very eager to be discharged as he wants to see his daughter this weekend. He is still on high-dose steroids. Vitals reviewed. Patient Problems (1) Acute hypoxemic respiratory failure Current Visit: Yes Status: Acute Plan to address problem: Continue oxygen supplementation for now and wean. He will need to a walk test to determine oxygen need prior to discharge. 06/12. Repeat chest x-ray shows slightly worsened left airspace disease. Lasix one-time dose ordered. Pulmonology recs appreciated (2) Pneumonia Current Visit: Yes Status: Acute Qualifiers: Laterality: bilateral Plan to address problem: Pneumonia protocol: Antibiotics - Complete on 06/12. ID recommendations appreciated. (3) Suspected 2019 novel coronavirus infection -negative (4) Lung cancer Current Visit: Yes Status: Acute Plan to address problem: Outpatient oncology follow-up, supportive care. Patient is status post chemotherapy. (5) Atrial fibrillation Current Visit: Yes Status: Acute Plan to address problem: Continue with rate control medication. Eliquis resumed. Monitor platelets (6) Hypertension Current Visit: No Status: Acute Qualifiers: Hypertension type: essential hypertension Qualified Code(s): I10 - Essential (primary) hypertension Plan to address problem: Monitor blood pressure every shift, continue medical management. (7) Thrombocytopenia Current Visit: Yes Status: Resolved Plan to address problem: This has resolved after platelet transfusion (8) Nicotine dependence Current Visit: No Status: Acute Qualifiers: Nicotine product type: cigarettes Substance use status: in withdrawal Qualified Code(s): F17.213 - Nicotine dependence, cigarettes, with withdrawal Plan to address problem: Smoking cessation counseling, supportive care, behavior change counseling, +15 minutes. (9) DVT prophylaxis Current Visit: Yes Status: Acute Plan to address problem: SCD to bilateral lower extremities while in bed. On eliquis (10) Advance care planning Current Visit: No Status: Acute Plan to address problem: Disease education conducted, patient prognosis discussed, patient is full code, patient knowledges understanding and agreement with care plan, +30 minutes. History Interval history: see below. Hospitalist Physical - Constitutional Vitals: Temp Pulse Resp BP Pulse Ox 97.5 F L 71 18 137/69 92 06/13/20 06:18 06/13/20 06:18 06/13/20 06:18 06/13/20 06:18 06/13/20 06:18 General appearance: Present: no acute distress, well-nourished - EENT Eyes: Present: PERRL, EOM intact - Neck Neck: Present: supple, normal ROM - Respiratory Respiratory: bilateral: rales - Cardiovascular Rhythm: regular Heart Sounds: Present: S1 & S2 - Extremities Extremities: No edema - Abdominal General gastrointestinal: soft, non-tender, normal bowel sounds - Integumentary Integumentary: Present: clear - Psychiatric Psychiatric: appropriate mood/affect - Neurologic Neurologic: CNII-XII intact Results - Labs CBC & Chem 7: 06/12/20 04:40 06/12/20 04:40 Labs: Laboratory Last Values WBC 8.5 K/mm3 (4.5-11.0) 06/12/20 04:40 RBC 3.15 M/mm3 (3.65-5.03) L 06/12/20 04:40 Hgb 9.7 gm/dl (11.8-15.2) L 06/12/20 04:40 Hct 28.9 % (35.5-45.6) L 06/12/20 04:40 MCV 92 fl (84-94) 06/12/20 04:40 MCH 31 pg (28-32) 06/12/20 04:40 MCHC 34 % (32-34) 06/12/20 04:40 RDW 15.0 % (13.2-15.2) 06/12/20 04:40 Plt Count 205 K/mm3 (140-440) 06/12/20 04:40 Lymph % (Auto) [employer] 06/07/20 12:13 Ellis % (Auto) [employer]ing [employer] Technician 06/07/20 12:13 Eos % (Auto) [employer] Technician 06/07/20 12:13 Baso % (Auto) [employer]ician 06/07/20 12:13 Lymph # [employer]ician 06/07/20 12:13 Ellis # [employer] Technician 06/07/20 12:13 Eos # [employer] Technician 06/07/20 12:13 Baso # [employer] Technician 06/07/20 12:13 Add Manual Diff Complete 06/12/20 04:40 Total Counted 100 06/12/20 04:40 Seg Neutrophils % [employer]ician 06/12/20 04:40 Seg Neuts % (Manual) 94.0 % (40.0-70.0) H 06/12/20 04:40 Band Neutrophils % 4.0 % 06/12/20 04:40 Lymphocytes % (Manual) 2.0 % (13.4-35.0) L 06/12/20 04:40 Reactive Lymphs % (Man) 0 % 06/12/20 04:40 Monocytes % (Manual) 0 % (0.0-7.3) 06/12/20 04:40 Eosinophils % (Manual) 0 % (0.0-4.3) 06/12/20 04:40 Basophils % (Manual) 0 % (0.0-1.8) 06/12/20 04:40 Metamyelocytes % 0 % 06/12/20 04:40 Myelocytes % 0 % 06/12/20 04:40 Promyelocytes % 0 % 06/12/20 04:40 Blast Cells % 0 % 06/12/20 04:40 Nucleated RBC % Not Reportable 06/12/20 04:40 Seg Neutrophils # [employer]ing [employer] Technician 06/07/20 12:13 Seg Neutrophils # Man 8.0 K/mm3 (1.8-7.7) H 06/12/20 04:40 Band Neutrophils # 0.3 K/mm3 06/12/20 04:40 Lymphocytes # (Manual) 0.2 K/mm3 (1.2-5.4) L 06/12/20 04:40 Abs React Lymphs (Man) 0.0 K/mm3 06/12/20 04:40 Monocytes # (Manual) 0.0 K/mm3 (0.0-0.8) 06/12/20 04:40 Eosinophils # (Manual) 0.0 K/mm3 (0.0-0.4) 06/12/20 04:40 Basophils # (Manual) 0.0 K/mm3 (0.0-0.1) 06/12/20 04:40 Metamyelocytes # 0.0 K/mm3 06/12/20 04:40 Myelocytes # 0.0 K/mm3 06/12/20 04:40 Promyelocytes # 0.0 K/mm3 06/12/20 04:40 Blast Cells # 0.0 K/mm3 06/12/20 04:40 WBC Morphology Not Reportable 06/12/20 04:40 Hypersegmented Neuts Not Reportable 06/12/20 04:40 Hyposegmented Neuts Not Reportable 06/12/20 04:40 Hypogranular Neuts Not Reportable 06/12/20 04:40 Smudge Cells Not Reportable 06/12/20 04:40 Toxic Granulation Not Reportable 06/12/20 04:40 Toxic Vacuolation Not Reportable 06/12/20 04:40 Dohle Bodies Not Reportable 06/12/20 04:40 Pelger-Huet Anomaly Not Reportable 06/12/20 04:40 Manuel Rods Not Reportable 06/12/20 04:40 Platelet Estimate Consistent w auto 06/12/20 04:40 Clumped Platelets Not Reportable 06/12/20 04:40 Plt Clumps, EDTA Not Reportable 06/12/20 04:40 Large Platelets Not Reportable 06/12/20 04:40 Giant Platelets Not Reportable 06/12/20 04:40 Platelet Satelliting Not Reportable 06/12/20 04:40 Plt Morphology Comment Not Reportable 06/12/20 04:40 RBC Morphology Not Reportable 06/12/20 04:40 Dimorphic RBCs Not Reportable 06/12/20 04:40 Polychromasia Not Reportable 06/12/20 04:40 Hypochromasia Not Reportable 06/12/20 04:40 Poikilocytosis Not Reportable 06/12/20 04:40 Anisocytosis Not Reportable 06/12/20 04:40 Microcytosis Not Reportable 06/12/20 04:40 Macrocytosis Few 06/12/20 04:40 Spherocytes Not Reportable 06/12/20 04:40 Pappenheimer Bodies Not Reportable 06/12/20 04:40 Sickle Cells Not Reportable 06/12/20 04:40 Target Cells Not Reportable 06/12/20 04:40 Tear Drop Cells Not Reportable 06/12/20 04:40 Ovalocytes Rare 06/12/20 04:40 Helmet Cells Not Reportable 06/12/20 04:40 Gamble-Branson Bodies Not Reportable 06/12/20 04:40 [place] Rings Not Reportable 06/12/20 04:40 Mil Cells Not Reportable 06/12/20 04:40 Bite Cells Not Reportable 06/12/20 04:40 Crenated Cell Not Reportable 06/12/20 04:40 Elliptocytes Not Reportable 06/12/20 04:40 Acanthocytes (Spur) Not Reportable 06/12/20 04:40 Rouleaux Not Reportable 06/12/20 04:40 Hemoglobin C Crystals Not Reportable 06/12/20 04:40 Schistocytes Not Reportable 06/12/20 04:40 Malaria parasites Not Reportable 06/12/20 04:40 Scott Bodies Not Reportable 06/12/20 04:40 Hem Pathologist Commnt No 06/12/20 04:40 PT 14.1 Sec. (12.2-14.9) 06/07/20 12:13 INR 1.07 (0.87-1.13) 06/07/20 12:13 D-Dimer 742.10 ng/mlDDU (0-234) H 06/07/20 12:13 Sodium 139 mmol/L (137-145) 06/12/20 04:40 Potassium 4.0 mmol/L (3.6-5.0) 06/12/20 04:40 Chloride 99.0 mmol/L (98-107) 06/12/20 04:40 Carbon Dioxide 32 mmol/L (22-30) H 06/12/20 04:40 Anion Gap 12 mmol/L 06/12/20 04:40 BUN 23 mg/dL (9-20) H 06/12/20 04:40 Creatinine 0.6 mg/dL (0.8-1.5) L 06/12/20 04:40 Estimated GFR > 60 ml/min 06/12/20 04:40 BUN/Creatinine Ratio 38 % 06/12/20 04:40 Glucose 143 mg/dL (75-100) H 06/12/20 04:40 Lactic Acid 1.70 mmol/L (0.7-2.0) 06/07/20 12:13 Calcium 8.3 mg/dL (8.4-10.2) L 06/12/20 04:40 Magnesium 2.70 mg/dL (1.7-2.3) H 06/07/20 12:13 Ferritin 397.3 ng/mL (13.0-400.0) 06/07/20 12:13 Total Bilirubin 0.40 mg/dL (0.1-1.2) 06/12/20 04:40 AST 23 units/L (5-40) 06/12/20 04:40 ALT 59 units/L (7-56) H 06/12/20 04:40 Alkaline Phosphatase 75 units/L (35-129) 06/12/20 04:40 Lactate Dehydrogenase 369 units/L (91-180) H 06/07/20 12:13 Total Creatine Kinase 104 units/L (55-170) 06/07/20 12:13 C-Reactive Protein 6.70 mg/dL (0.00-1.30) H 06/07/20 12:13 Total Protein 5.3 g/dL (6.3-8.2) L 06/12/20 04:40 Albumin 2.8 g/dL (3.9-5) L 06/12/20 04:40 Albumin/Globulin Ratio 1.1 % 06/12/20 04:40 Procalcitonin 0.24 ng/mL (<0.15) 06/07/20 12:13 Coronavirus (PCR) Negative (Negative) 06/08/20 Unknown Blood Type A POSITIVE 06/07/20 12:16 Antibody Screen Negative 06/07/20 12:16 Microbiology: Microbiology 06/07/20 12:13 Peripheral/Venous Blood Culture - Final NO GROWTH AFTER 5 DAYS 06/07/20 12:13 Peripheral/Venous Blood Culture - Final NO GROWTH AFTER 5 DAYS - Diagnostic Impressions Diagnostic Impressions: Echocardiogram 06/09/20 00:01 Transthoracic Echocardiogram Indication: SOB BP: 134/74 HR: 72 Conclusions *The right heart chambers are both at least moderately dilated. *There is mild to moderate tricuspid regurgitation. *There is evidence of mild pulmonary hypertension. *The right ventricular systolic pressure is calculated at 37 mmHg. *Left ventricular chamber size and systolic function are normal. *The estimated ejection fraction is 50-55%. *The left atrium is mildly dilated. *There is mild mitral regurgitation. Findings Procedure Info: The study quality is technically difficult. The study is technically limited due to the patient's history of COPD. Left Ventricle: The left ventricular chamber size is normal. There is no left ventricular hypertrophy. Global left ventricular systolic function is at the lower limits of normal. The estimated ejection fraction is 50-55%. Left Atrium: The left atrium is mildly dilated. Right Ventricle: The right ventricle is moderately dilated. The right ventricular global systolic function is moderately reduced. Right Atrium: The right atrium is moderate to severely dilated. Aortic Valve: The aortic valve is trileaflet. The aortic valve leaflets are mildly thickened. There is no evidence of aortic regurgitation. There is no evidence of aortic stenosis. Mitral Valve: The mitral valve leaflets are mildly thickened. There is mild mitral regurgitation. There is no evidence of mitral stenosis. Tricuspid Valve: The tricuspid valve leaflets are mildly thickened. There is mild to moderate tricuspid regurgitation. The right ventricular systolic pressure is calculated at 37 mmHg. There is evidence of mild pulmonary hypertension. Pericardium: There is no pericardial effusion. Aorta: There is no dilatation of the ascending aorta. There is no dilatation of the aortic root. Venous: The inferior vena cava appears normal in size. Measurements Chambers 2D Name Value Normal Range IVSd (2D) 0.75 cm (0.6 - 1.1) LVPWd (2D) 0.69 cm (0.6 - 1.1) LVIDd (2D) 4.56 cm (3.7 - 5.6) LVIDs (2D) 3.19 cm (2 - 3.8) LV FS (2D) 30.14 % - EF Teichholz (2D) 57.51 % - Ao root diameter (2D) 2.81 cm (2 - 3.7) Volumes/Mass Name Value Normal Range LA ESV SP 4CH (A/L) 23.97 ml - LA ESV SP 2CH (A/L) 30.03 ml - LA ESV BP (A/L) 27.07 ml - LA ESV BP (A/L) index 16.21 ml/m2 - LA ESV SP 4CH (MOD) 19.44 ml - LA ESV SP 2CH (MOD) 27.6 ml - LA ESV BP (MOD) 23.25 ml - LA ESV BP (MOD) index 13.92 ml/m2 - LV EDV SP 4CH (MOD) 61.87 ml - LV ESV SP 4CH (MOD) 21.74 ml - EF SP 4CH (MOD) 64.86 % - LV EDV SP 2CH (MOD) 58.35 ml - LV ESV SP 2CH (MOD) 18.85 ml - EF SP 2CH (MOD) 67.68 % - LV EDV BP 59.85 ml - LV ESV BP 21.29 ml - BP EF (MOD) 64.43 % - Diastolic/Systolic Function Name Value Normal Range MV E-wave Vmax 0.89 m/sec - MV deceleration time 225.66 msec - MV A-wave Vmax 0.7 m/sec - MV E:A ratio 1.27 ratio - Aortic Valve Name Value Normal Range AV Vmax 1.3 m/sec - AV VTI 26.54 cm - AV peak gradient 6.76 mmHg - AV mean gradient 3.28 mmHg - LVOT diameter 2.02 cm - LVOT Vmax 1.1 m/sec - LVOT VTI 22.1 cm - LVOT peak gradient 4.8 mmHg - LVOT mean gradient 1.73 mmHg - SV LVOT 70.98 ml - KEMI (continuity Vmax) 2.71 cm2 - KEMI (continuity VTI) 2.67 cm2 - Mitral Valve Name Value Normal Range MV Vmax 0.96 m/sec - MV VTI 24.34 cm - MV peak gradient 3.68 mmHg - MV mean gradient 1.4 mmHg - MV PHT 64.07 msec - MVA (PHT) 3.43 cm2 - MVA (continuity VTI) 2.92 cm2 - Tricuspid Valve Name Value Normal Range TR Vmax 2.92 m/sec - TR peak gradient 34 mmHg - RAP 3 mmHg - RVSP 37 mmHg - IVC diameter 2 cm (1.2 - 2.3) Pulmonic Valve/Qp:Qs Name Value Normal Range PV Vmax 0.85 m/sec - PV VTI 16.92 cm - PV peak gradient 2.87 mmHg - PV mean gradient 1.05 mmHg - RVOT Vmax 0.66 m/sec - RVOT VTI 12.39 cm - RVOT peak gradient 1.74 mmHg - Espitia/IV: Voiding Method Urinal IV Catheter Type [Right INT / Saline Lock Forearm] Active Medications - Current Medications Current Medications: Generic Name Dose Route Start Last Admin Trade Name Freq PRN Reason Stop Dose Admin Acetaminophen 650 mg 06/07/20 12:57 Tylenol PO Q6H PRN Pain MILD(1-3)/Fever >100.5/CANALES Apixaban 5 mg 06/11/20 22:00 06/13/20 10:01 Eliquis PO 5 mg Q12HR SANDRA Administration Protocol Diltiazem HCl 30 mg 06/07/20 18:00 06/13/20 05:31 Cardizem PO 30 mg Q6HR SANDRA Administration Furosemide 20 mg 06/13/20 11:00 Lasix IV 06/13/20 12:00 ONCE SANDRA Methylprednisolone Sodium Succinate 60 mg 06/11/20 13:00 06/13/20 05:31 Solu-Medrol IV 60 mg Q6HR SANDRA Administration Sodium Chloride 10 ml 06/07/20 22:00 06/12/20 22:28 Sodium Chloride Flush Syringe 10 Ml IV 10 ml BID SANDRA Administration Sodium Chloride 10 ml 06/07/20 12:57 Sodium Chloride Flush Syringe 10 Ml IV PRN PRN LINE FLUSH Tamsulosin HCl 0.4 mg 06/08/20 10:00 06/13/20 10:02 Flomax PO 0.4 mg DAILY SANDRA Administration
--- NOTE | 2020-06-13 12:27 | Progress Note ---
Assessment and Plan Cultures: Blood culture 06/07/2020 pending COVID-19: Negative A/P: 79-year-old man past medical history arthritis, nicotine dependence, COPD, A. fib, lung cancer status post radiation therapy currently on chemotherapy admitted with pneumonia, possible COVID-19 #Acute hypoxemic respiratory failure: COVID-19 test negative, likely secondary to his lung cancer and other COVID-19. #Bilateral pneumonia: Complete 5 days and was given mild elevated procalcitonin #COPD #Lung cancer, currently on chemotherapy: High risk for decompensation. #Leukocytosis: New onset, likely secondary to steroids Recs: -Continue steroids per pulmonary -Completed 5 days of empiric antibiotics -Leukocytosis likely secondary to steroid use Thank you for the consult, we will sign off. Please call with questions. Immanuel Carrillo MD [facility] ([facility]) M: [phone] O: [phone] F: [phone] Subjective Date of service: 06/13/20 Principal diagnosis: Acute hypoxic respiratory failure Interval history: Afebrile, currently on 25/90% Objective - Exam Narrative Exam: Physical exam deferred due to PPE conservation strategy. Please refer to primary team's note. - Constitutional Vitals: Vital Signs Temp Pulse Resp BP Pulse Ox 97.5 F L 71 18 137/69 96 06/13/20 06:18 06/13/20 06:18 06/13/20 06:18 06/13/20 06:18 06/13/20 11:45 Temperature -Last 24 Hours Temperature 97.5 F Temperature 97.6 F Temperature 97.4 F - Labs CBC & Chem 7: 06/12/20 04:40 06/12/20 04:40
[2020-06-14] MEDS: dilTIAZem 30 MG TAB PO SCH ×4 (01:53→17:18)
[2020-06-14] MEDS: methylPREDNISolone Sod Succinate 125 MG/2 ML INJ IV SCH ×4 (01:53→21:59)
[2020-06-14] MEDS: APIXABAN 5 MG TAB PO SCH ×2 (09:21→22:00)
[2020-06-14] MEDS: TAMSULOSIN 0.4 MG CAP PO SCH (09:21)
--- NOTE | 2020-06-14 10:18 | Progress Note ---
Assessment and Plan 79 y/o male with pulmonary fibrosis and prior history of lung CA, admitted with acute hypoxic respiratory failure, worsening of fibrotic lung disease and concern for COVID 06/14/2020: Tolerated lasix, may hold today and consider a dose tomorrow. Please check chemistry today or in the am to evaluate renal function. Now that oxygen requirement is down, can start to wean steroids. Will drop down to 60q8 starting today. IMS ordered repeat CXR for today. Clinically patient is improving regardless of read. Will likely need oxygen at home. Will continue to follow. 06/13/2020: Lasix again today. 20mg IV. Suggest checking labs again this weekend. Continue steroids, will not wean down until FiO2 requirement is lower. 06/12/2020: Lasix today BP is better this am. Will only give 20. Yesterday was the first day recorded as being negative. Continue steroids at current dosing for now. Will attempt to wean as soon as oxygen requirement improves. Given response to steroids, patient could have ITP or some form of autoimmune related thrombocytopenia but would need bone marrow biopsy to determine this. Can follow up with [facility] as an outpatient as now I don't think think Heme comes to this facility. BP and volume control for Pulm HTN. Prognosis remains guarded. 1. COVID negative. 2. 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 Diresis is really the only thing to offer, but will have to hold today given BP. 3. I did increase his IV steroids today since I cannot diurese today to see if this helps. 4. Wean FiO2 for sats >88% 5. Platelet count improved drastically. 6. Will discuss with patient code status, given his degree of lung disease, if he is intubated, the likely [place] of him coming off successfully is very very low. Subjective Date of service: 06/14/20 Principal diagnosis: Acute hypoxic respiratory failure Interval history: Patient down to 6 liters NC now. Good sats. No labs this am. Negative over 1 liter yesterday which has really helped. Objective Vital Signs - 12hr 06/14/20 06/14/20 06/14/20 01:53 04:43 06:13 Temperature 98.1 F Pulse Rate 60 72 72 Respiratory 24 Rate Blood Pressure 120/57 126/52 126/52 O2 Sat by Pulse 95 Oximetry 06/14/20 06/14/20 06/14/20 07:57 08:43 08:44 Temperature Pulse Rate 76 Respiratory Rate Blood Pressure O2 Sat by Pulse 91 98 Oximetry 06/14/20 09:50 Temperature Pulse Rate Respiratory Rate Blood Pressure O2 Sat by Pulse 92 Oximetry Constitutional: no acute distress Eyes: non-icteric ENT: oropharynx moist Neck: supple Effort: mildly labored Ascultation: Bilateral: diminished breath sounds, rales Cardiovascular: regular rate and rhythm (Tachycardia noted) Gastrointestinal: normoactive bowel sounds, soft, non-tender, non-distended Integumentary: other (Petechial rash present) Extremities: other (Early clubbing present. Petechial rash lower extremities) Neurologic: normal mental status, non-focal exam CBC and BMP: 06/12/20 04:40 06/12/20 04:40 ABG, PT/INR, D-dimer: PT/INR, D-dimer PT 14.1 Sec. (12.2-14.9) 06/07/20 12:13 INR 1.07 (0.87-1.13) 06/07/20 12:13 D-Dimer 742.10 ng/mlDDU (0-234) H 06/07/20 12:13 Abnormal lab findings: Abnormal Labs 06/07/20 06/07/20 06/07/20 12:13 12:13 12:13 WBC RBC Hgb 11.7 L Hct 34.3 L Plt Count 6 L* Seg Neuts % (Manual) 93.0 H Lymphocytes % (Manual) 4.0 L Seg Neutrophils # Man Lymphocytes # (Manual) 0.2 L Monocytes # (Manual) D-Dimer 742.10 H Sodium 136 L Carbon Dioxide BUN 21 H Creatinine Glucose 138 H Calcium Magnesium 2.70 H AST 80 H ALT 71 H Lactate Dehydrogenase C-Reactive Protein Total Protein 6.1 L Albumin 3.2 L 06/07/20 06/07/20 06/08/20 12:13 15:59 04:53 WBC RBC 3.39 L 3.17 L Hgb 10.5 L 9.7 L Hct 31.1 L 28.9 L Plt Count 6 L* 11 L* Seg Neuts % (Manual) 93.0 H Lymphocytes % (Manual) 5.0 L Seg Neutrophils # Man 8.5 H Lymphocytes # (Manual) 0.5 L Monocytes # (Manual) D-Dimer Sodium Carbon Dioxide BUN Creatinine Glucose 139 H Calcium Magnesium AST ALT Lactate Dehydrogenase 369 H C-Reactive Protein 6.70 H Total Protein Albumin 06/08/20 06/09/20 06/10/20 04:53 14:06 08:17 WBC 16.5 H 12.3 H RBC 3.18 L 3.31 L Hgb 9.8 L 10.4 L Hct 29.5 L 30.5 L Plt Count 84 L D 115 L Seg Neuts % (Manual) 82.0 H Lymphocytes % (Manual) 11.0 L Seg Neutrophils # Man 13.5 H Lymphocytes # (Manual) Monocytes # (Manual) 1.2 H D-Dimer Sodium 136 L Carbon Dioxide BUN 22 H Creatinine Glucose 150 H Calcium 8.3 L Magnesium AST 57 H ALT 65 H Lactate Dehydrogenase C-Reactive Protein Total Protein Albumin 2.9 L 06/10/20 06/12/20 06/12/20 08:17 04:40 04:40 WBC RBC 3.15 L Hgb 9.7 L Hct 28.9 L Plt Count Seg Neuts % (Manual) 94.0 H Lymphocytes % (Manual) 2.0 L Seg Neutrophils # Man 8.0 H Lymphocytes # (Manual) 0.2 L Monocytes # (Manual) D-Dimer Sodium Carbon Dioxide 32 H 32 H BUN 22 H 23 H Creatinine 0.6 L 0.6 L Glucose 142 H 143 H Calcium 8.3 L Magnesium AST ALT 59 H Lactate Dehydrogenase C-Reactive Protein Total Protein 5.3 L Albumin 2.8 L
--- NOTE | 2020-06-14 12:14 | Progress Note ---
Assessment and Plan Assessment and plan: Patient is a 79-year-old male with a history of lung cancer, pulmonary fibrosis admitted with dyspnea on exertion for about 3 days prior to presentation. Chest imaging here showed bilateral pulmonary infiltrates. Here patient started on antibiotics. Cultures ordered in the ER. Started on diuretics and steroids as well. 06/10. Patient is COVID 19 test negative. This morning, patient feels better. He says he does not wish to resume any chemotherapy after discharge. He has an oncologist. He does not use oxygen at home and will most likely need oxygen on discharge. 06/11. Patient states that he feels better. He is still needing oxygen to maintain sats. Steroids increased today per pulmonology. Patient will need oxygen at discharge. ID recommendations appreciated. Plan to complete an [id number] therapy 06/12. Chest x-ray shows slightly worsened left airspace disease. Patient still on steroids. He wishes to go home. Ordered Lasix 40 IV one-time dose 06/13. Patient feels slightly better today after getting the Lasix. He is very eager to be discharged as he wants to see his daughter this weekend. He is still on high-dose steroids. 06/14. Patient seen and examined at bedside this morning. His oxygen has been weaned down to 6 L. Repeat chest x-ray this morning performed unofficial read shows stable findings. Pulmonology recommendations appreciated. Await BMP t elizabeth Vitals reviewed. Patient Problems (1) Acute hypoxemic respiratory failure Current Visit: Yes Status: Acute Plan to address problem: Continue oxygen supplementation for now. Continue to wean down oxygen. Pulmonology accommodations appreciated. Taper steroids. Needs oxygen at disch arge (2) Pneumonia Current Visit: Yes Status: Acute Qualifiers: Laterality: bilateral Plan to address problem: Pneumonia protocol: Antibiotics - Complete on 06/12. ID recommendations appreciated. (3) Suspected 2019 novel coronavirus infection -negative (4) Lung cancer Current Visit: Yes Status: Acute Plan to address problem: Outpatient oncology follow-up, supportive care. Patient is status post chemotherapy. (5) Atrial fibrillation Current Visit: Yes Status: Acute Plan to address problem: Continue with rate control medication. Eliquis resumed. Monitor platelets (6) Hypertension Current Visit: No Status: Acute Qualifiers: Hypertension type: essential hypertension Qualified Code(s): I10 - Essential (primary) hypertension Plan to address problem: Monitor blood pressure every shift, continue medical management. (7) Thrombocytopenia Current Visit: Yes Status: Resolved Plan to address problem: This has resolved after platelet transfusion (8) Nicotine dependence Current Visit: No Status: Acute Qualifiers: Nicotine product type: cigarettes Substance use status: in withdrawal Qualified Code(s): F17.213 - Nicotine dependence, cigarettes, with withdrawal Plan to address problem: Smoking cessation counseling, supportive care, behavior change counseling, +15 minutes. (9) DVT prophylaxis Current Visit: Yes Status: Acute Plan to address problem: SCD to bilateral lower extremities while in bed. On eliquis (10) Advance care planning Current Visit: No Status: Acute Plan to address problem: Disease education conducted, patient prognosis discussed, patient is full code, patient knowledges understanding and agreement with care plan, +30 minutes. History Interval history: see below. Hospitalist Physical - Constitutional Vitals: Temp Pulse Resp BP Pulse Ox 98.1 F 76 24 126/52 92 06/14/20 04:43 06/14/20 08:43 06/14/20 04:43 06/14/20 06:13 06/14/20 09:50 General appearance: Present: no acute distress, well-nourished - EENT Eyes: Present: PERRL, EOM intact - Respiratory Respiratory: bilateral: rales - Cardiovascular Rhythm: regular Heart Sounds: Present: S1 & S2 - Extremities Extremities: No edema - Abdominal General gastrointestinal: soft, non-tender, non-distended - Psychiatric Psychiatric: appropriate mood/affect - Neurologic Neurologic: CNII-XII intact Results - Labs CBC & Chem 7: 06/12/20 04:40 06/12/20 04:40 Labs: Laboratory Last Values WBC 8.5 K/mm3 (4.5-11.0) 06/12/20 04:40 RBC 3.15 M/mm3 (3.65-5.03) L 06/12/20 04:40 Hgb 9.7 gm/dl (11.8-15.2) L 06/12/20 04:40 Hct 28.9 % (35.5-45.6) L 06/12/20 04:40 MCV 92 fl (84-94) 06/12/20 04:40 MCH 31 pg (28-32) 06/12/20 04:40 MCHC 34 % (32-34) 06/12/20 04:40 RDW 15.0 % (13.2-15.2) 06/12/20 04:40 Plt Count 205 K/mm3 (140-440) 06/12/20 04:40 Lymph % (Auto) Middleware Developer 06/07/20 12:13 [place] % (Auto) Middleware Developer 06/07/20 12:13 Eos % (Auto) Middleware Developer 06/07/20 12:13 Baso % (Auto) Middleware Developer 06/07/20 12:13 Lymph # Middleware Developer 06/07/20 12:13 [place] # Middleware Developer 06/07/20 12:13 Eos # Middleware Developer 06/07/20 12:13 Baso # Middleware Developer 06/07/20 12:13 Add Manual Diff Complete 06/12/20 04:40 Total Counted 100 06/12/20 04:40 Seg Neutrophils % Middleware Developer 06/12/20 04:40 Seg Neuts % (Manual) 94.0 % (40.0-70.0) H 06/12/20 04:40 Band Neutrophils % 4.0 % 06/12/20 04:40 Lymphocytes % (Manual) 2.0 % (13.4-35.0) L 06/12/20 04:40 Reactive Lymphs % (Man) 0 % 06/12/20 04:40 Monocytes % (Manual) 0 % (0.0-7.3) 06/12/20 04:40 Eosinophils % (Manual) 0 % (0.0-4.3) 06/12/20 04:40 Basophils % (Manual) 0 % (0.0-1.8) 06/12/20 04:40 Metamyelocytes % 0 % 06/12/20 04:40 Myelocytes % 0 % 06/12/20 04:40 Promyelocytes % 0 % 06/12/20 04:40 Blast Cells % 0 % 06/12/20 04:40 Nucleated RBC % Not Reportable 06/12/20 04:40 Seg Neutrophils # Middleware Developer 06/07/20 12:13 Seg Neutrophils # Man 8.0 K/mm3 (1.8-7.7) H 06/12/20 04:40 Band Neutrophils # 0.3 K/mm3 06/12/20 04:40 Lymphocytes # (Manual) 0.2 K/mm3 (1.2-5.4) L 06/12/20 04:40 Abs React Lymphs (Man) 0.0 K/mm3 06/12/20 04:40 Monocytes # (Manual) 0.0 K/mm3 (0.0-0.8) 06/12/20 04:40 Eosinophils # (Manual) 0.0 K/mm3 (0.0-0.4) 06/12/20 04:40 Basophils # (Manual) 0.0 K/mm3 (0.0-0.1) 06/12/20 04:40 Metamyelocytes # 0.0 K/mm3 06/12/20 04:40 Myelocytes # 0.0 K/mm3 06/12/20 04:40 Promyelocytes # 0.0 K/mm3 06/12/20 04:40 Blast Cells # 0.0 K/mm3 06/12/20 04:40 WBC Morphology Not Reportable 06/12/20 04:40 Hypersegmented Neuts Not Reportable 06/12/20 04:40 Hyposegmented Neuts Not Reportable 06/12/20 04:40 Hypogranular Neuts Not Reportable 06/12/20 04:40 Smudge Cells Not Reportable 06/12/20 04:40 Toxic Granulation Not Reportable 06/12/20 04:40 Toxic Vacuolation Not Reportable 06/12/20 04:40 Dohle Bodies Not Reportable 06/12/20 04:40 Pelger-Huet Anomaly Not Reportable 06/12/20 04:40 Manuel Rods Not Reportable 06/12/20 04:40 Platelet Estimate Consistent w auto 06/12/20 04:40 Clumped Platelets Not Reportable 06/12/20 04:40 Plt Clumps, EDTA Not Reportable 06/12/20 04:40 Large Platelets Not Reportable 06/12/20 04:40 Giant Platelets Not Reportable 06/12/20 04:40 Platelet Satelliting Not Reportable 06/12/20 04:40 Plt Morphology Comment Not Reportable 06/12/20 04:40 RBC Morphology Not Reportable 06/12/20 04:40 Dimorphic RBCs Not Reportable 06/12/20 04:40 Polychromasia Not Reportable 06/12/20 04:40 Hypochromasia Not Reportable 06/12/20 04:40 Poikilocytosis Not Reportable 06/12/20 04:40 Anisocytosis Not Reportable 06/12/20 04:40 Microcytosis Not Reportable 06/12/20 04:40 Macrocytosis Few 06/12/20 04:40 Spherocytes Not Reportable 06/12/20 04:40 Pappenheimer Bodies Not Reportable 06/12/20 04:40 Sickle Cells Not Reportable 06/12/20 04:40 Target Cells Not Reportable 06/12/20 04:40 Tear Drop Cells Not Reportable 06/12/20 04:40 Ovalocytes Rare 06/12/20 04:40 Helmet Cells Not Reportable 06/12/20 04:40 Gam[place] Bodies Not Reportable 06/12/20 04:40 [place] Rings Not Reportable 06/12/20 04:40 Mil Cells Not Reportable 06/12/20 04:40 Bite Cells Not Reportable 06/12/20 04:40 Crenated Cell Not Reportable 06/12/20 04:40 Elliptocytes Not Reportable 06/12/20 04:40 Acanthocytes (Spur) Not Reportable 06/12/20 04:40 Rouleaux Not Reportable 06/12/20 04:40 Hemoglobin C Crystals Not Reportable 06/12/20 04:40 Schistocytes Not Reportable 06/12/20 04:40 Malaria parasites Not Reportable 06/12/20 04:40 Scott Bodies Not Reportable 06/12/20 04:40 Hem Pathologist Commnt No 06/12/20 04:40 PT 14.1 Sec. (12.2-14.9) 06/07/20 12:13 INR 1.07 (0.87-1.13) 06/07/20 12:13 D-Dimer 742.10 ng/mlDDU (0-234) H 06/07/20 12:13 Sodium 139 mmol/L (137-145) 06/12/20 04:40 Potassium 4.0 mmol/L (3.6-5.0) 06/12/20 04:40 Chloride 99.0 mmol/L (98-107) 06/12/20 04:40 Carbon Dioxide 32 mmol/L (22-30) H 06/12/20 04:40 Anion Gap 12 mmol/L 06/12/20 04:40 BUN 23 mg/dL (9-20) H 06/12/20 04:40 Creatinine 0.6 mg/dL (0.8-1.5) L 06/12/20 04:40 Estimated GFR > 60 ml/min 06/12/20 04:40 BUN/Creatinine Ratio 38 % 06/12/20 04:40 Glucose 143 mg/dL (75-100) H 06/12/20 04:40 Lactic Acid 1.70 mmol/L (0.7-2.0) 06/07/20 12:13 Calcium 8.3 mg/dL (8.4-10.2) L 06/12/20 04:40 Magnesium 2.70 mg/dL (1.7-2.3) H 06/07/20 12:13 Ferritin 397.3 ng/mL (13.0-400.0) 06/07/20 12:13 Total Bilirubin 0.40 mg/dL (0.1-1.2) 06/12/20 04:40 AST 23 units/L (5-40) 06/12/20 04:40 ALT 59 units/L (7-56) H 06/12/20 04:40 Alkaline Phosphatase 75 units/L (35-129) 06/12/20 04:40 Lactate Dehydrogenase 369 units/L (91-180) H 06/07/20 12:13 Total Creatine Kinase 104 units/L (55-170) 06/07/20 12:13 C-Reactive Protein 6.70 mg/dL (0.00-1.30) H 06/07/20 12:13 Total Protein 5.3 g/dL (6.3-8.2) L 06/12/20 04:40 Albumin 2.8 g/dL (3.9-5) L 06/12/20 04:40 Albumin/Globulin Ratio 1.1 % 06/12/20 04:40 Procalcitonin 0.24 ng/mL (<0.15) 06/07/20 12:13 Coronavirus (PCR) Negative (Negative) 06/08/20 Unknown Blood Type A POSITIVE 06/07/20 12:16 Antibody Screen Negative 06/07/20 12:16 - Diagnostic Impressions Diagnostic Impressions: Echocardiogram 06/09/20 00:01 Transthoracic Echocardiogram Indication: SOB BP: 134/74 HR: 72 Conclusions *The right heart chambers are both at least moderately dilated. *There is mild to moderate tricuspid regurgitation. *There is evidence of mild pulmonary hypertension. *The right ventricular systolic pressure is calculated at 37 mmHg. *Left ventricular chamber size and systolic function are normal. *The estimated ejection fraction is 50-55%. *The left atrium is mildly dilated. *There is mild mitral regurgitation. Findings Procedure Info: The study quality is technically difficult. The study is technically limited due to the patient's history of COPD. Left Ventricle: The left ventricular chamber size is normal. There is no left ventricular hypertrophy. Global left ventricular systolic function is at the lower limits of normal. The estimated ejection fraction is 50-55%. Left Atrium: The left atrium is mildly dilated. Right Ventricle: The right ventricle is moderately dilated. The right ventricular global systolic function is moderately reduced. Right Atrium: The right atrium is moderate to severely dilated. Aortic Valve: The aortic valve is trileaflet. The aortic valve leaflets are mildly thickened. There is no evidence of aortic regurgitation. There is no evidence of aortic stenosis. Mitral Valve: The mitral valve leaflets are mildly thickened. There is mild mitral regurgitation. There is no evidence of mitral stenosis. Tricuspid Valve: The tricuspid valve leaflets are mildly thickened. There is mild to moderate tricuspid regurgitation. The right ventricular systolic pressure is calculated at 37 mmHg. There is evidence of mild pulmonary hypertension. Pericardium: There is no pericardial effusion. Aorta: There is no dilatation of the ascending aorta. There is no dilatation of the aortic root. Venous: The inferior vena cava appears normal in size. Measurements Chambers 2D Name Value Normal Range IVSd (2D) 0.75 cm (0.6 - 1.1) LVPWd (2D) 0.69 cm (0.6 - 1.1) LVIDd (2D) 4.56 cm (3.7 - 5.6) LVIDs (2D) 3.19 cm (2 - 3.8) LV FS (2D) 30.14 % - EF Teichholz (2D) 57.51 % - Ao root diameter (2D) 2.81 cm (2 - 3.7) Volumes/Mass Name Value Normal Range LA ESV SP 4CH (A/L) 23.97 ml - LA ESV SP 2CH (A/L) 30.03 ml - LA ESV BP (A/L) 27.07 ml - LA ESV BP (A/L) index 16.21 ml/m2 - LA ESV SP 4CH (MOD) 19.44 ml - LA ESV SP 2CH (MOD) 27.6 ml - LA ESV BP (MOD) 23.25 ml - LA ESV BP (MOD) index 13.92 ml/m2 - LV EDV SP 4CH (MOD) 61.87 ml - LV ESV SP 4CH (MOD) 21.74 ml - EF SP 4CH (MOD) 64.86 % - LV EDV SP 2CH (MOD) 58.35 ml - LV ESV SP 2CH (MOD) 18.85 ml - EF SP 2CH (MOD) 67.68 % - LV EDV BP 59.85 ml - LV ESV BP 21.29 ml - BP EF (MOD) 64.43 % - Diastolic/Systolic Function Name Value Normal Range MV E-wave Vmax 0.89 m/sec - MV deceleration time 225.66 msec - MV A-wave Vmax 0.7 m/sec - MV E:A ratio 1.27 ratio - Aortic Valve Name Value Normal Range AV Vmax 1.3 m/sec - AV VTI 26.54 cm - AV peak gradient 6.76 mmHg - AV mean gradient 3.28 mmHg - LVOT diameter 2.02 cm - LVOT Vmax 1.1 m/sec - LVOT VTI 22.1 cm - LVOT peak gradient 4.8 mmHg - LVOT mean gradient 1.73 mmHg - SV LVOT 70.98 ml - KEMI (continuity Vmax) 2.71 cm2 - KEMI (continuity VTI) 2.67 cm2 - Mitral Valve Name Value Normal Range MV Vmax 0.96 m/sec - MV VTI 24.34 cm - MV peak gradient 3.68 mmHg - MV mean gradient 1.4 mmHg - MV PHT 64.07 msec - MVA (PHT) 3.43 cm2 - MVA (continuity VTI) 2.92 cm2 - Tricuspid Valve Name Value Normal Range TR Vmax 2.92 m/sec - TR peak gradient 34 mmHg - RAP 3 mmHg - RVSP 37 mmHg - IVC diameter 2 cm (1.2 - 2.3) Pulmonic Valve/Qp:Qs Name Value Normal Range PV Vmax 0.85 m/sec - PV VTI 16.92 cm - PV peak gradient 2.87 mmHg - PV mean gradient 1.05 mmHg - RVOT Vmax 0.66 m/sec - RVOT VTI 12.39 cm - RVOT peak gradient 1.74 mmHg - Espitia/IV: Voiding Method Bedpan IV Catheter Type [Right INT / Saline Lock Forearm] Active Medications - Current Medications Current Medications: Generic Name Dose Route Start Last Admin Trade Name Freq PRN Reason Stop Dose Admin Acetaminophen 650 mg 06/07/20 12:57 06/14/20 01:54 Tylenol PO 650 mg Q6H PRN Administration Pain MILD(1-3)/Fever >100.5/CANALES Apixaban 5 mg 06/11/20 22:00 06/14/20 09:21 Eliquis PO 5 mg Q12HR SANDRA Administration Protocol Diltiazem HCl 30 mg 06/07/20 18:00 06/14/20 06:13 Cardizem PO 30 mg Q6HR SANDRA Administration Methylprednisolone Sodium Succinate 60 mg 06/14/20 14:00 Solu-Medrol IV Q8HR SANDRA Sodium Chloride 10 ml 06/07/20 22:00 06/14/20 09:24 Sodium Chloride Flush Syringe 10 Ml IV 10 ml BID SANDRA Administration Sodium Chloride 10 ml 06/07/20 12:57 Sodium Chloride Flush Syringe 10 Ml IV PRN PRN LINE FLUSH Tamsulosin HCl 0.4 mg 06/08/20 10:00 06/14/20 09:21 Flomax PO 0.4 mg DAILY SANDRA Administration Nutrition/Malnutrition Assess - Dietary Evaluation Nutrition/Malnutrition Findings: Nutrition Notes Start: 06/13/20 14:25 Freq: Status: Active Protocol: Document 06/13/20 14:25 LM (Rec: 06/13/20 14:26 LM [id number]) Nutrition Notes Need for Assessment generated from: LOS Initial or Follow up Brief Note Subjective/Other Information Screen for LOS. Pt with 100% intakes in chart. Nutrition Intervention Revisit per MD consult or patient Sign Off request:
[2020-06-14 13:59] LABS: Blood Urea Nitrogen 25 mg/dL (9-20); Calcium 8.6 mg/dL (8.4-10.2); Hemolysis Index 8
[2020-06-14 14:03] LABS: BUN/Creatinine Ratio 42
[2020-06-15] MEDS: dilTIAZem 30 MG TAB PO SCH ×4 (02:00→18:30)
[2020-06-15] MEDS: methylPREDNISolone Sod Succinate 125 MG/2 ML INJ IV SCH ×3 (07:33→22:00)
[2020-06-15] MEDS ORDERED: FUROSEMIDE 20 MG/2 ML INJ IV ONE ×2 (07:37→10:00)
--- NOTE | 2020-06-15 07:41 | Progress Note ---
Assessment and Plan 79 y/o male with pulmonary fibrosis and prior history of lung CA, admitted with acute hypoxic respiratory failure, worsening of fibrotic lung disease and concern for COVID 06/15/2020: Continue steroids at 60q8. Renal function was stable on chemistry from yesterday so will give lasix today. Will attempt to wean FiO2 as tolerated for sats >88%. 06/14/2020: Tolerated lasix, may hold today and consider a dose tomorrow. Please check chemistry today or in the am to evaluate renal function. Now that oxygen requirement is down, can start to wean steroids. Will drop down to 60q8 starting today. [facility] ordered repeat CXR for today. Clinically patient is improving regardless of read. Will likely need oxygen at home. Will continue to follow. 06/13/2020: Lasix again today. 20mg IV. Suggest checking labs again this weekend. Continue steroids, will not wean down until FiO2 requirement is lower. 06/12/2020: Lasix today BP is better this am. Will only give 20. Yesterday was the first day recorded as being negative. Continue steroids at current dosing for now. Will attempt to wean as soon as oxygen requirement improves. Given response to steroids, patient could have ITP or some form of autoimmune related thrombocytopenia but would need bone marrow biopsy to determine this. Can follow up with [facility] as an outpatient as now I don't think think Heme comes to this facility. BP and volume control for Pulm HTN. Prognosis remains guarded. 1. COVID negative. 2. 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 Diresis is really the only thing to offer, but will have to hold today given BP. 3. I did increase his IV steroids today since I cannot diurese today to see if this helps. 4. Wean FiO2 for sats >88% 5. Platelet count improved drastically. 6. Will discuss with patient code status, given his degree of lung disease, if he is intubated, the likely [place] of him coming off successfully is very very low. Subjective Date of service: 06/15/20 Principal diagnosis: Acute hypoxic respiratory failure Interval history: Remains on 6 liters, sats in the low 90's. Dropped steroids down to 60q8. Objective Vital Signs - 12hr 06/14/20 06/14/20 06/15/20 21:12 21:49 02:00 Temperature 97.6 F Pulse Rate 84 88 Respiratory 16 Rate Blood Pressure 126/55 155/75 O2 Sat by Pulse 83 L 92 Oximetry 06/15/20 06/15/20 04:33 07:32 Temperature 97.9 F Pulse Rate 70 88 Respiratory 20 Rate Blood Pressure 129/63 145/90 O2 Sat by Pulse 91 Oximetry Constitutional: no acute distress Eyes: non-icteric ENT: oropharynx moist Neck: supple Effort: mildly labored Ascultation: Bilateral: diminished breath sounds, rales Cardiovascular: regular rate and rhythm (Tachycardia noted) Gastrointestinal: normoactive bowel sounds, soft, non-tender, non-distended Integumentary: other (Petechial rash present) Extremities: other (Early clubbing present. Petechial rash lower extremities) Neurologic: normal mental status, non-focal exam CBC and BMP: 06/12/20 04:40 06/14/20 12:39 ABG, PT/INR, D-dimer: PT/INR, D-dimer PT 14.1 Sec. (12.2-14.9) 06/07/20 12:13 INR 1.07 (0.87-1.13) 06/07/20 12:13 D-Dimer 742.10 ng/mlDDU (0-234) H 06/07/20 12:13 Abnormal lab findings: Abnormal Labs 06/07/20 06/07/20 06/07/20 12:13 12:13 12:13 WBC RBC Hgb 11.7 L Hct 34.3 L Plt Count 6 L* Seg Neuts % (Manual) 93.0 H Lymphocytes % (Manual) 4.0 L Seg Neutrophils # Man Lymphocytes # (Manual) 0.2 L Monocytes # (Manual) D-Dimer 742.10 H Sodium 136 L Chloride Carbon Dioxide BUN 21 H Creatinine Glucose 138 H Calcium Magnesium 2.70 H AST 80 H ALT 71 H Lactate Dehydrogenase C-Reactive Protein Total Protein 6.1 L Albumin 3.2 L 06/07/20 06/07/20 06/08/20 12:13 15:59 04:53 WBC RBC 3.39 L 3.17 L Hgb 10.5 L 9.7 L Hct 31.1 L 28.9 L Plt Count 6 L* 11 L* Seg Neuts % (Manual) 93.0 H Lymphocytes % (Manual) 5.0 L Seg Neutrophils # Man 8.5 H Lymphocytes # (Manual) 0.5 L Monocytes # (Manual) D-Dimer Sodium Chloride Carbon Dioxide BUN Creatinine Glucose 139 H Calcium Magnesium AST ALT Lactate Dehydrogenase 369 H C-Reactive Protein 6.70 H Total Protein Albumin 06/08/20 06/09/20 06/10/20 04:53 14:06 08:17 WBC 16.5 H 12.3 H RBC 3.18 L 3.31 L Hgb 9.8 L 10.4 L Hct 29.5 L 30.5 L Plt Count 84 L D 115 L Seg Neuts % (Manual) 82.0 H Lymphocytes % (Manual) 11.0 L Seg Neutrophils # Man 13.5 H Lymphocytes # (Manual) Monocytes # (Manual) 1.2 H D-Dimer Sodium 136 L Chloride Carbon Dioxide BUN 22 H Creatinine Glucose 150 H Calcium 8.3 L Magnesium AST 57 H ALT 65 H Lactate Dehydrogenase C-Reactive Protein Total Protein Albumin 2.9 L 06/10/20 06/12/20 06/12/20 08:17 04:40 04:40 WBC RBC 3.15 L Hgb 9.7 L Hct 28.9 L Plt Count Seg Neuts % (Manual) 94.0 H Lymphocytes % (Manual) 2.0 L Seg Neutrophils # Man 8.0 H Lymphocytes # (Manual) 0.2 L Monocytes # (Manual) D-Dimer Sodium Chloride Carbon Dioxide 32 H 32 H BUN 22 H 23 H Creatinine 0.6 L 0.6 L Glucose 142 H 143 H Calcium 8.3 L Magnesium AST ALT 59 H Lactate Dehydrogenase C-Reactive Protein Total Protein 5.3 L Albumin 2.8 L 06/14/20 12:39 WBC RBC Hgb Hct Plt Count Seg Neuts % (Manual) Lymphocytes % (Manual) Seg Neutrophils # Man Lymphocytes # (Manual) Monocytes # (Manual) D-Dimer Sodium 135 L Chloride 91.6 L Carbon Dioxide 35 H BUN 25 H Creatinine 0.6 L Glucose 203 H Calcium Magnesium AST ALT Lactate Dehydrogenase C-Reactive Protein Total Protein Albumin
[2020-06-15 09:26] LABS: Blood Urea Nitrogen 27 mg/dL (9-20); Calcium 8.5 mg/dL (8.4-10.2); Hemolysis Index 9
[2020-06-15 09:29] LABS: BUN/Creatinine Ratio 45
[2020-06-15] MEDS: APIXABAN 5 MG TAB PO SCH ×2 (10:12→22:00)
[2020-06-15] MEDS: TAMSULOSIN 0.4 MG CAP PO SCH (10:12)
--- NOTE | 2020-06-15 10:53 | Progress Note ---
Assessment and Plan Assessment and plan: Patient is a 79-year-old male with a history of lung cancer, pulmonary fibrosis admitted with dyspnea on exertion for about 3 days prior to presentation. Chest imaging here showed bilateral pulmonary infiltrates. Here patient started on antibiotics. Cultures ordered in the ER. Started on diuretics and steroids as well. 06/10. Patient is COVID 19 test negative. This morning, patient feels better. He says he does not wish to resume any chemotherapy after discharge. He has an oncologist. He does not use oxygen at home and will most likely need oxygen on discharge. 06/11. Patient states that he feels better. He is still needing oxygen to maintain sats. Steroids increased today per pulmonology. Patient will need oxygen at discharge. ID recommendations appreciated. Plan to complete an [id number] therapy 06/12. Chest x-ray shows slightly worsened left airspace disease. Patient still on steroids. He wishes to go home. Ordered Lasix 40 IV one-time dose 06/13. Patient feels slightly better today after getting the Lasix. He is very eager to be discharged as he wants to see his daughter this weekend. He is still on high-dose steroids. 06/14. Patient seen and examined at bedside this morning. His oxygen has been weaned down to 6 L. Repeat chest x-ray this morning performed unofficial read shows stable findings. Pulmonology recommendations appreciated. Await BMP t elizabeth. 06/15. Breathing better today on 4.5L. Renal function remains stable. One lasix dose today. Vitals reviewed. Patient Problems (1) Acute hypoxemic respiratory failure Current Visit: Yes Status: Acute Plan to address problem: Continue oxygen supplementation for now. Continue to wean down oxygen. Pulmonology accommodations appreciated. Taper steroids. Lasix one dose today. Will need oxygen at discharge (2) Pneumonia Current Visit: Yes Status: Acute Qualifiers: Laterality: bilateral Plan to address problem: Pneumonia protocol: Antibiotics - Completed on 06/12. ID recommendations appreciated. (3) Suspected 2019 novel coronavirus infection -negative (4) Lung cancer Current Visit: Yes Status: Acute Plan to address problem: Outpatient oncology follow-up, supportive care. Patient is status post chemotherapy. (5) Atrial fibrillation Current Visit: Yes Status: Acute Plan to address problem: Continue with rate control medication. Eliquis resumed. Monitor platelets (6) Hypertension Current Visit: No Status: Acute Qualifiers: Hypertension type: essential hypertension Qualified Code(s): I10 - Essential (primary) hypertension Plan to address problem: Monitor blood pressure every shift, continue medical management. (7) Thrombocytopenia Current Visit: Yes Status: Resolved Plan to address problem: This has resolved after platelet transfusion (8) Nicotine dependence Current Visit: No Status: Acute Qualifiers: Nicotine product type: cigarettes Substance use status: in withdrawal Qualified Code(s): F17.213 - Nicotine dependence, cigarettes, with withdrawal Plan to address problem: Smoking cessation counseling, supportive care, behavior change counseling, +15 minutes. (9) DVT prophylaxis Current Visit: Yes Status: Acute Plan to address problem: SCD to bilateral lower extremities while in bed. On eliquis (10) Advance care planning Current Visit: No Status: Acute Plan to address problem: Disease education conducted, patient prognosis discussed, patient is full code, patient knowledges understanding and agreement with care plan, +30 minutes. History Interval history: see below. Hospitalist Physical - Constitutional Vitals: Temp Pulse Resp BP Pulse Ox 97.9 F 88 20 145/90 90 06/15/20 04:33 06/15/20 07:32 06/15/20 04:33 06/15/20 07:32 06/15/20 08:27 General appearance: Present: no acute distress, well-nourished - EENT Eyes: Present: PERRL, EOM intact - Neck Neck: Present: supple - Respiratory Respiratory: bilateral: rales - Cardiovascular Rhythm: regular Heart Sounds: Present: S1 & S2 Peripheral Pulses: within normal limits - Abdominal General gastrointestinal: soft, non-tender, non-distended - Psychiatric Psychiatric: appropriate mood/affect - Neurologic Neurologic: CNII-XII intact Results - Labs CBC & Chem 7: 06/12/20 04:40 06/15/20 08:22 Labs: Laboratory Last Values WBC 8.5 K/mm3 (4.5-11.0) 06/12/20 04:40 RBC 3.15 M/mm3 (3.65-5.03) L 06/12/20 04:40 Hgb 9.7 gm/dl (11.8-15.2) L 06/12/20 04:40 Hct 28.9 % (35.5-45.6) L 06/12/20 04:40 MCV 92 fl (84-94) 06/12/20 04:40 MCH 31 pg (28-32) 06/12/20 04:40 MCHC 34 % (32-34) 06/12/20 04:40 RDW 15.0 % (13.2-15.2) 06/12/20 04:40 Plt Count 205 K/mm3 (140-440) 06/12/20 04:40 Lymph % (Auto) Taker Off Hemp Fiber 06/07/20 12:13 [place] % (Auto) Taker Off Hemp Fiber 06/07/20 12:13 Eos % (Auto) Taker Off Hemp Fiber 06/07/20 12:13 Baso % (Auto) Taker Off Hemp Fiber 06/07/20 12:13 Lymph # Taker Off Hemp Fiber 06/07/20 12:13 [place] # Taker Off Hemp Fiber 06/07/20 12:13 Eos # Taker Off Hemp Fiber 06/07/20 12:13 Baso # Taker Off Hemp Fiber 06/07/20 12:13 Add Manual Diff Complete 06/12/20 04:40 Total Counted 100 06/12/20 04:40 Seg Neutrophils % Taker Off Hemp Fiber 06/12/20 04:40 Seg Neuts % (Manual) 94.0 % (40.0-70.0) H 06/12/20 04:40 Band Neutrophils % 4.0 % 06/12/20 04:40 Lymphocytes % (Manual) 2.0 % (13.4-35.0) L 06/12/20 04:40 Reactive Lymphs % (Man) 0 % 06/12/20 04:40 Monocytes % (Manual) 0 % (0.0-7.3) 06/12/20 04:40 Eosinophils % (Manual) 0 % (0.0-4.3) 06/12/20 04:40 Basophils % (Manual) 0 % (0.0-1.8) 06/12/20 04:40 Metamyelocytes % 0 % 06/12/20 04:40 Myelocytes % 0 % 06/12/20 04:40 Promyelocytes % 0 % 06/12/20 04:40 Blast Cells % 0 % 06/12/20 04:40 Nucleated RBC % Not Reportable 06/12/20 04:40 Seg Neutrophils # Taker Off Hemp Fiber 06/07/20 12:13 Seg Neutrophils # Man 8.0 K/mm3 (1.8-7.7) H 06/12/20 04:40 Band Neutrophils # 0.3 K/mm3 06/12/20 04:40 Lymphocytes # (Manual) 0.2 K/mm3 (1.2-5.4) L 06/12/20 04:40 Abs React Lymphs (Man) 0.0 K/mm3 06/12/20 04:40 Monocytes # (Manual) 0.0 K/mm3 (0.0-0.8) 06/12/20 04:40 Eosinophils # (Manual) 0.0 K/mm3 (0.0-0.4) 06/12/20 04:40 Basophils # (Manual) 0.0 K/mm3 (0.0-0.1) 06/12/20 04:40 Metamyelocytes # 0.0 K/mm3 06/12/20 04:40 Myelocytes # 0.0 K/mm3 06/12/20 04:40 Promyelocytes # 0.0 K/mm3 06/12/20 04:40 Blast Cells # 0.0 K/mm3 06/12/20 04:40 WBC Morphology Not Reportable 06/12/20 04:40 Hypersegmented Neuts Not Reportable 06/12/20 04:40 Hyposegmented Neuts Not Reportable 06/12/20 04:40 Hypogranular Neuts Not Reportable 06/12/20 04:40 Smudge Cells Not Reportable 06/12/20 04:40 Toxic Granulation Not Reportable 06/12/20 04:40 Toxic Vacuolation Not Reportable 06/12/20 04:40 Dohle Bodies Not Reportable 06/12/20 04:40 Pelger-Huet Anomaly Not Reportable 06/12/20 04:40 Manuel Rods Not Reportable 06/12/20 04:40 Platelet Estimate Consistent w auto 06/12/20 04:40 Clumped Platelets Not Reportable 06/12/20 04:40 Plt Clumps, EDTA Not Reportable 06/12/20 04:40 Large Platelets Not Reportable 06/12/20 04:40 Giant Platelets Not Reportable 06/12/20 04:40 Platelet Satelliting Not Reportable 06/12/20 04:40 Plt Morphology Comment Not Reportable 06/12/20 04:40 RBC Morphology Not Reportable 06/12/20 04:40 Dimorphic RBCs Not Reportable 06/12/20 04:40 Polychromasia Not Reportable 06/12/20 04:40 Hypochromasia Not Reportable 06/12/20 04:40 Poikilocytosis Not Reportable 06/12/20 04:40 Anisocytosis Not Reportable 06/12/20 04:40 Microcytosis Not Reportable 06/12/20 04:40 Macrocytosis Few 06/12/20 04:40 Spherocytes Not Reportable 06/12/20 04:40 Pappenheimer Bodies Not Reportable 06/12/20 04:40 Sickle Cells Not Reportable 06/12/20 04:40 Target Cells Not Reportable 06/12/20 04:40 Tear Drop Cells Not Reportable 06/12/20 04:40 Ovalocytes Rare 06/12/20 04:40 Helmet Cells Not Reportable 06/12/20 04:40 [place] Bodies Not Reportable 06/12/20 04:40 [place] Rings Not Reportable 06/12/20 04:40 [place] Cells Not Reportable 06/12/20 04:40 Bite Cells Not Reportable 06/12/20 04:40 Crenated Cell Not Reportable 06/12/20 04:40 Elliptocytes Not Reportable 06/12/20 04:40 Acanthocytes (Spur) Not Reportable 06/12/20 04:40 Rouleaux Not Reportable 06/12/20 04:40 Hemoglobin C Crystals Not Reportable 06/12/20 04:40 Schistocytes Not Reportable 06/12/20 04:40 Malaria parasites Not Reportable 06/12/20 04:40 [place] Bodies Not Reportable 06/12/20 04:40 Hem Pathologist Commnt No 06/12/20 04:40 PT 14.1 Sec. (12.2-14.9) 06/07/20 12:13 INR 1.07 (0.87-1.13) 06/07/20 12:13 D-Dimer 742.10 ng/mlDDU (0-234) H 06/07/20 12:13 Sodium 141 mmol/L (137-145) 06/15/20 08:22 Potassium 4.1 mmol/L (3.6-5.0) 06/15/20 08:22 Chloride 96.1 mmol/L (98-107) L 06/15/20 08:22 Carbon Dioxide 35 mmol/L (22-30) H 06/15/20 08:22 Anion Gap 14 mmol/L 06/15/20 08:22 BUN 27 mg/dL (9-20) H 06/15/20 08:22 Creatinine 0.6 mg/dL (0.8-1.3) L 06/15/20 08:22 Estimated GFR > 60 ml/min 06/15/20 08:22 BUN/Creatinine Ratio 45 % 06/15/20 08:22 Glucose 135 mg/dL (75-100) H 06/15/20 08:22 Lactic Acid 1.70 mmol/L (0.7-2.0) 06/07/20 12:13 Calcium 8.5 mg/dL (8.4-10.2) 06/15/20 08:22 Magnesium 2.70 mg/dL (1.7-2.3) H 06/07/20 12:13 Ferritin 397.3 ng/mL (13.0-400.0) 06/07/20 12:13 Total Bilirubin 0.40 mg/dL (0.1-1.2) 06/12/20 04:40 AST 23 units/L (5-40) 06/12/20 04:40 ALT 59 units/L (7-56) H 06/12/20 04:40 Alkaline Phosphatase 75 units/L (35-129) 06/12/20 04:40 Lactate Dehydrogenase 369 units/L (91-180) H 06/07/20 12:13 Total Creatine Kinase 104 units/L (55-170) 06/07/20 12:13 C-Reactive Protein 6.70 mg/dL (0.00-1.30) H 06/07/20 12:13 Total Protein 5.3 g/dL (6.3-8.2) L 06/12/20 04:40 Albumin 2.8 g/dL (3.9-5) L 06/12/20 04:40 Albumin/Globulin Ratio 1.1 % 06/12/20 04:40 Procalcitonin 0.24 ng/mL (<0.15) 06/07/20 12:13 Coronavirus (PCR) Negative (Negative) 06/08/20 Unknown Blood Type A POSITIVE 06/07/20 12:16 Antibody Screen Negative 06/07/20 12:16 - Diagnostic Impressions Diagnostic Impressions: Echocardiogram 06/09/20 00:01 Transthoracic Echocardiogram Indication: SOB BP: 134/74 HR: 72 Conclusions *The right heart chambers are both at least moderately dilated. *There is mild to moderate tricuspid regurgitation. *There is evidence of mild pulmonary hypertension. *The right ventricular systolic pressure is calculated at 37 mmHg. *Left ventricular chamber size and systolic function are normal. *The estimated ejection fraction is 50-55%. *The left atrium is mildly dilated. *There is mild mitral regurgitation. Findings Procedure Info: The study quality is technically difficult. The study is technically limited due to the patient's history of COPD. Left Ventricle: The left ventricular chamber size is normal. There is no left ventricular hypertrophy. Global left ventricular systolic function is at the lower limits of normal. The estimated ejection fraction is 50-55%. Left Atrium: The left atrium is mildly dilated. Right Ventricle: The right ventricle is moderately dilated. The right ventricular global systolic function is moderately reduced. Right Atrium: The right atrium is moderate to severely dilated. Aortic Valve: The aortic valve is trileaflet. The aortic valve leaflets are mildly thickened. There is no evidence of aortic regurgitation. There is no evidence of aortic stenosis. Mitral Valve: The mitral valve leaflets are mildly thickened. There is mild mitral regurgitation. There is no evidence of mitral stenosis. Tricuspid Valve: The tricuspid valve leaflets are mildly thickened. There is mild to moderate tricuspid regurgitation. The right ventricular systolic pressure is calculated at 37 mmHg. There is evidence of mild pulmonary hypertension. Pericardium: There is no pericardial effusion. Aorta: There is no dilatation of the ascending aorta. There is no dilatation of the aortic root. Venous: The inferior vena cava appears normal in size. Measurements Chambers 2D Name Value Normal Range IVSd (2D) 0.75 cm (0.6 - 1.1) LVPWd (2D) 0.69 cm (0.6 - 1.1) LVIDd (2D) 4.56 cm (3.7 - 5.6) LVIDs (2D) 3.19 cm (2 - 3.8) LV FS (2D) 30.14 % - EF Teichholz (2D) 57.51 % - Ao root diameter (2D) 2.81 cm (2 - 3.7) Volumes/Mass Name Value Normal Range LA ESV SP 4CH (A/L) 23.97 ml - LA ESV SP 2CH (A/L) 30.03 ml - LA ESV BP (A/L) 27.07 ml - LA ESV BP (A/L) index 16.21 ml/m2 - LA ESV SP 4CH (MOD) 19.44 ml - LA ESV SP 2CH (MOD) 27.6 ml - LA ESV BP (MOD) 23.25 ml - LA ESV BP (MOD) index 13.92 ml/m2 - LV EDV SP 4CH (MOD) 61.87 ml - LV ESV SP 4CH (MOD) 21.74 ml - EF SP 4CH (MOD) 64.86 % - LV EDV SP 2CH (MOD) 58.35 ml - LV ESV SP 2CH (MOD) 18.85 ml - EF SP 2CH (MOD) 67.68 % - LV EDV BP 59.85 ml - LV ESV BP 21.29 ml - BP EF (MOD) 64.43 % - Diastolic/Systolic Function Name Value Normal Range MV E-wave Vmax 0.89 m/sec - MV deceleration time 225.66 msec - MV A-wave Vmax 0.7 m/sec - MV E:A ratio 1.27 ratio - Aortic Valve Name Value Normal Range AV Vmax 1.3 m/sec - AV VTI 26.54 cm - AV peak gradient 6.76 mmHg - AV mean gradient 3.28 mmHg - LVOT diameter 2.02 cm - LVOT Vmax 1.1 m/sec - LVOT VTI 22.1 cm - LVOT peak gradient 4.8 mmHg - LVOT mean gradient 1.73 mmHg - SV LVOT 70.98 ml - KEMI (continuity Vmax) 2.71 cm2 - KEMI (continuity VTI) 2.67 cm2 - Mitral Valve Name Value Normal Range MV Vmax 0.96 m/sec - MV VTI 24.34 cm - MV peak gradient 3.68 mmHg - MV mean gradient 1.4 mmHg - MV PHT 64.07 msec - MVA (PHT) 3.43 cm2 - MVA (continuity VTI) 2.92 cm2 - Tricuspid Valve Name Value Normal Range TR Vmax 2.92 m/sec - TR peak gradient 34 mmHg - RAP 3 mmHg - RVSP 37 mmHg - IVC diameter 2 cm (1.2 - 2.3) Pulmonic Valve/Qp:Qs Name Value Normal Range PV Vmax 0.85 m/sec - PV VTI 16.92 cm - PV peak gradient 2.87 mmHg - PV mean gradient 1.05 mmHg - RVOT Vmax 0.66 m/sec - RVOT VTI 12.39 cm - RVOT peak gradient 1.74 mmHg - Espitia/IV: Voiding Method Urinal IV Catheter Type [Right INT / Saline Lock Forearm] Active Medications - Current Medications Current Medications: Generic Name Dose Route Start Last Admin Trade Name Freq PRN Reason Stop Dose Admin Acetaminophen 650 mg 06/07/20 12:57 06/14/20 01:54 Tylenol PO 650 mg Q6H PRN Administration Pain MILD(1-3)/Fever >100.5/CANALES Apixaban 5 mg 06/11/20 22:00 06/15/20 10:12 Eliquis PO 5 mg Q12HR SANDRA Administration Protocol Diltiazem HCl 30 mg 06/07/20 18:00 06/15/20 07:32 Cardizem PO 30 mg Q6HR SANDRA Administration Methylprednisolone Sodium Succinate 60 mg 06/14/20 14:00 06/15/20 07:33 Solu-Medrol IV 60 mg Q8HR SANDRA Administration Sodium Chloride 10 ml 06/07/20 22:00 06/15/20 10:10 Sodium Chloride Flush Syringe 10 Ml IV 10 ml BID SANDRA Administration Sodium Chloride 10 ml 06/07/20 12:57 Sodium Chloride Flush Syringe 10 Ml IV PRN PRN LINE FLUSH Tamsulosin HCl 0.4 mg 06/08/20 10:00 06/15/20 10:12 Flomax PO 0.4 mg DAILY SANDRA Administration Nutrition/Malnutrition Assess - Dietary Evaluation Nutrition/Malnutrition Findings: Nutrition Notes Start: 06/13/20 14:25 Freq: Status: Active Protocol: Document 06/13/20 14:25 LM (Rec: 06/13/20 14:26 LM [id number]) Nutrition Notes Need for Assessment generated from: LOS Initial or Follow up Brief Note Subjective/Other Information Screen for LOS. Pt with 100% intakes in chart. Nutrition Intervention Revisit per MD consult or patient Sign Off request:
[2020-06-16] MEDS: dilTIAZem 30 MG TAB PO SCH ×4 (00:50→18:14)
[2020-06-16] MEDS: methylPREDNISolone Sod Succinate 125 MG/2 ML INJ IV SCH ×3 (05:34→21:45)
[2020-06-16] MEDS: APIXABAN 5 MG TAB PO SCH ×2 (11:14→21:45)
[2020-06-16] MEDS: TAMSULOSIN 0.4 MG CAP PO SCH (11:14)
--- NOTE | 2020-06-16 12:09 | Progress Note ---
Assessment and Plan 79 y/o male with pulmonary fibrosis and prior history of lung CA, admitted with acute hypoxic respiratory failure, worsening of fibrotic lung disease and concern for COVID 06/16/2020: Hold on lasix today. Will wean steroids again starting tomorrow. Would suggest checking chemistry for tomorrow morning. Most likely patient is going to require home oxygen. 06/15/2020: Continue steroids at 60q8. Renal function was stable on chemistry from yesterday so will give lasix today. Will attempt to wean FiO2 as tolerated for sats >88%. 06/14/2020: Tolerated lasix, may hold today and consider a dose tomorrow. Please check chemistry today or in the am to evaluate renal function. Now that oxygen requirement is down, can start to wean steroids. Will drop down to 60q8 starting today. [facility] ordered repeat CXR for today. Clinically patient is improving regardless of read. Will likely need oxygen at home. Will continue to follow. 06/13/2020: Lasix again today. 20mg IV. Suggest checking labs again this weekend. Continue steroids, will not wean down until FiO2 requirement is lower. 06/12/2020: Lasix today BP is better this am. Will only give 20. Yesterday was the first day recorded as being negative. Continue steroids at current dosing for now. Will attempt to wean as soon as oxygen requirement improves. Given response to steroids, patient could have ITP or some form of autoimmune related thrombocytopenia but would need bone marrow biopsy to determine this. Can follow up with jerrod as an outpatient as now I don't think think [facility] comes to this facility. BP and volume control for Pulm HTN. Prognosis remains guarded. 1. COVID negative. 2. 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 Diresis is really the only thing to offer, but will have to hold today given BP. 3. I did increase his IV steroids today since I cannot diurese today to see if this helps. 4. Wean FiO2 for sats >88% 5. Platelet count improved drastically. 6. Will discuss with patient code status, given his degree of lung disease, if he is intubated, the likely [place] of him coming off successfully is very very low. Subjective Date of service: 06/16/20 Principal diagnosis: Acute hypoxic respiratory failure Interval history: Down to 4 liters NC. Sats in the low 90's. Unsure of accuracy of I/O but per charting only negative 50cc's. Objective Vital Signs - 12hr 06/16/20 06/16/20 06/16/20 00:50 04:49 08:26 Temperature 98.6 F Pulse Rate 83 74 Respiratory 20 Rate Blood Pressure 134/70 129/59 O2 Sat by Pulse 90 92 Oximetry Constitutional: no acute distress Eyes: non-icteric ENT: oropharynx moist Neck: supple Effort: mildly labored Ascultation: Bilateral: diminished breath sounds, rales Cardiovascular: regular rate and rhythm (Tachycardia noted) Gastrointestinal: normoactive bowel sounds, soft, non-tender, non-distended Integumentary: other (Petechial rash present) Extremities: other (Early clubbing present. Petechial rash lower extremities) Neurologic: normal mental status, non-focal exam CBC and BMP: 06/12/20 04:40 06/15/20 08:22 ABG, PT/INR, D-dimer: PT/INR, D-dimer PT 14.1 Sec. (12.2-14.9) 06/07/20 12:13 INR 1.07 (0.87-1.13) 06/07/20 12:13 D-Dimer 742.10 ng/mlDDU (0-234) H 06/07/20 12:13 Abnormal lab findings: Abnormal Labs 06/07/20 06/07/20 06/07/20 12:13 12:13 12:13 WBC RBC Hgb 11.7 L Hct 34.3 L Plt Count 6 L* Seg Neuts % (Manual) 93.0 H Lymphocytes % (Manual) 4.0 L Seg Neutrophils # Man Lymphocytes # (Manual) 0.2 L Monocytes # (Manual) D-Dimer 742.10 H Sodium 136 L Chloride Carbon Dioxide BUN 21 H Creatinine Glucose 138 H Calcium Magnesium 2.70 H AST 80 H ALT 71 H Lactate Dehydrogenase C-Reactive Protein Total Protein 6.1 L Albumin 3.2 L 06/07/20 06/07/20 06/08/20 12:13 15:59 04:53 WBC RBC 3.39 L 3.17 L Hgb 10.5 L 9.7 L Hct 31.1 L 28.9 L Plt Count 6 L* 11 L* Seg Neuts % (Manual) 93.0 H Lymphocytes % (Manual) 5.0 L Seg Neutrophils # Man 8.5 H Lymphocytes # (Manual) 0.5 L Monocytes # (Manual) D-Dimer Sodium Chloride Carbon Dioxide BUN Creatinine Glucose 139 H Calcium Magnesium AST ALT Lactate Dehydrogenase 369 H C-Reactive Protein 6.70 H Total Protein Albumin 06/08/20 06/09/20 06/10/20 04:53 14:06 08:17 WBC 16.5 H 12.3 H RBC 3.18 L 3.31 L Hgb 9.8 L 10.4 L Hct 29.5 L 30.5 L Plt Count 84 L D 115 L Seg Neuts % (Manual) 82.0 H Lymphocytes % (Manual) 11.0 L Seg Neutrophils # Man 13.5 H Lymphocytes # (Manual) Monocytes # (Manual) 1.2 H D-Dimer Sodium 136 L Chloride Carbon Dioxide BUN 22 H Creatinine Glucose 150 H Calcium 8.3 L Magnesium AST 57 H ALT 65 H Lactate Dehydrogenase C-Reactive Protein Total Protein Albumin 2.9 L 06/10/20 06/12/20 06/12/20 08:17 04:40 04:40 WBC RBC 3.15 L Hgb 9.7 L Hct 28.9 L Plt Count Seg Neuts % (Manual) 94.0 H Lymphocytes % (Manual) 2.0 L Seg Neutrophils # Man 8.0 H Lymphocytes # (Manual) 0.2 L Monocytes # (Manual) D-Dimer Sodium Chloride Carbon Dioxide 32 H 32 H BUN 22 H 23 H Creatinine 0.6 L 0.6 L Glucose 142 H 143 H Calcium 8.3 L Magnesium AST ALT 59 H Lactate Dehydrogenase C-Reactive Protein Total Protein 5.3 L Albumin 2.8 L 06/14/20 06/15/20 12:39 08:22 WBC RBC Hgb Hct Plt Count Seg Neuts % (Manual) Lymphocytes % (Manual) Seg Neutrophils # Man Lymphocytes # (Manual) Monocytes # (Manual) D-Dimer Sodium 135 L Chloride 91.6 L 96.1 L Carbon Dioxide 35 H 35 H BUN 25 H 27 H Creatinine 0.6 L 0.6 L Glucose 203 H 135 H Calcium Magnesium AST ALT Lactate Dehydrogenase C-Reactive Protein Total Protein Albumin
--- NOTE | 2020-06-16 13:17 | Progress Note ---
Assessment and Plan Assessment and plan: Patient is a 79-year-old male with a history of lung cancer, pulmonary fibrosis admitted with dyspnea on exertion for about 3 days prior to presentation. Chest imaging here showed bilateral pulmonary infiltrates. Here patient started on antibiotics. Cultures ordered in the ER. Started on diuretics and steroids as well. 06/10. Patient is COVID 19 test negative. This morning, patient feels better. He says he does not wish to resume any chemotherapy after discharge. He has an oncologist. He does not use oxygen at home and will most likely need oxygen on discharge. 06/11. Patient states that he feels better. He is still needing oxygen to maintain sats. Steroids increased today per pulmonology. Patient will need oxygen at discharge. ID recommendations appreciated. Plan to complete an [id number] therapy 06/12. Chest x-ray shows slightly worsened left airspace disease. Patient still on steroids. He wishes to go home. Ordered Lasix 40 IV one-time dose 06/13. Patient feels slightly better today after getting the Lasix. He is very eager to be discharged as he wants to see his daughter this weekend. He is still on high-dose steroids. 06/14. Patient seen and examined at bedside this morning. His oxygen has been weaned down to 6 L. Repeat chest x-ray this morning performed unofficial read shows stable findings. Pulmonology recommendations appreciated. Await BMP t elizabeth. 06/15. Breathing better today on 4.5L. Renal function remains stable. One lasix dose today. 06/16. On 3.5-4L of oxygen this morning. No lasix today. Follow up renal function. Will likely need home oxygen Vitals reviewed. Patient Problems (1) Acute hypoxemic respiratory failure Current Visit: Yes Status: Acute Plan to address problem: Continue oxygen supplementation for now. Continue to wean down oxygen. Pulmonology recs appreciated. Steroid taper. Will need oxygen at discharge (2) Pneumonia Current Visit: Yes Status: Acute Qualifiers: Laterality: bilateral Plan to address problem: Pneumonia protocol: Antibiotics - Completed on 06/12. ID recommendations appreciated. (3) Suspected 2019 novel coronavirus infection -negative (4) Lung cancer Current Visit: Yes Status: Acute Plan to address problem: Outpatient oncology follow-up, supportive care. Patient is status post chemotherapy. (5) Atrial fibrillation Current Visit: Yes Status: Acute Plan to address problem: Continue with rate control medication. Eliquis resumed. (6) Hypertension Current Visit: No Status: Acute Qualifiers: Hypertension type: essential hypertension Qualified Code(s): I10 - Essential (primary) hypertension Plan to address problem: Monitor blood pressure every shift, continue medical management. (7) Thrombocytopenia Current Visit: Yes Status: Resolved Plan to address problem: This has resolved after platelet transfusion (8) Nicotine dependence Current Visit: No Status: Acute Qualifiers: Nicotine product type: cigarettes Substance use status: in withdrawal Qu alified Code(s): F17.213 - Nicotine dependence, cigarettes, with withdrawal Plan to address problem: Smoking cessation counseling, supportive care, behavior change counseling, +15 minutes. (9) DVT prophylaxis Current Visit: Yes Status: Acute Plan to address problem: SCD to bilateral lower extremities while in bed. On eliquis (10) Advance care planning Current Visit: No Status: Acute Plan to address problem: Disease education conducted, patient prognosis discussed, patient is full code, patient knowledges understanding and agreement with care plan, +30 minutes. History Interval history: see below. Hospitalist Physical - Constitutional Vitals: Temp Pulse Resp BP Pulse Ox 97.4 F L 83 24 130/53 88 06/16/20 11:42 06/16/20 11:42 06/16/20 11:42 06/16/20 11:42 06/16/20 11:42 General appearance: Present: no acute distress, well-nourished - EENT Eyes: Present: PERRL, EOM intact - Neck Neck: Present: supple - Respiratory Respiratory: bilateral: rales - Cardiovascular Rhythm: regular Heart Sounds: Present: S1 & S2 - Extremities Extremities: No edema - Abdominal General gastrointestinal: soft, non-tender, non-distended - Psychiatric Psychiatric: appropriate mood/affect - Neurologic Neurologic: CNII-XII intact Results - Labs CBC & Chem 7: 06/12/20 04:40 06/15/20 08:22 Labs: Laboratory Last Values WBC 8.5 K/mm3 (4.5-11.0) 06/12/20 04:40 RBC 3.15 M/mm3 (3.65-5.03) L 06/12/20 04:40 Hgb 9.7 gm/dl (11.8-15.2) L 06/12/20 04:40 Hct 28.9 % (35.5-45.6) L 06/12/20 04:40 MCV 92 fl (84-94) 06/12/20 04:40 MCH 31 pg (28-32) 06/12/20 04:40 MCHC 34 % (32-34) 06/12/20 04:40 RDW 15.0 % (13.2-15.2) 06/12/20 04:40 Plt Count 205 K/mm3 (140-440) 06/12/20 04:40 Lymph % (Auto) Carpet Mechanic 06/07/20 12:13 [place] % (Auto) Carpet Mechanic 06/07/20 12:13 Eos % (Auto) Carpet Mechanic 06/07/20 12:13 Baso % (Auto) Carpet Mechanic 06/07/20 12:13 Lymph # Carpet Mechanic 06/07/20 12:13 [place] # Carpet Mechanic 06/07/20 12:13 Eos # Carpet Mechanic 06/07/20 12:13 Baso # Carpet Mechanic 06/07/20 12:13 Add Manual Diff Complete 06/12/20 04:40 Total Counted 100 06/12/20 04:40 Seg Neutrophils % Carpet Mechanic 06/12/20 04:40 Seg Neuts % (Manual) 94.0 % (40.0-70.0) H 06/12/20 04:40 Band Neutrophils % 4.0 % 06/12/20 04:40 Lymphocytes % (Manual) 2.0 % (13.4-35.0) L 06/12/20 04:40 Reactive Lymphs % (Man) 0 % 06/12/20 04:40 Monocytes % (Manual) 0 % (0.0-7.3) 06/12/20 04:40 Eosinophils % (Manual) 0 % (0.0-4.3) 06/12/20 04:40 Basophils % (Manual) 0 % (0.0-1.8) 06/12/20 04:40 Metamyelocytes % 0 % 06/12/20 04:40 Myelocytes % 0 % 06/12/20 04:40 Promyelocytes % 0 % 06/12/20 04:40 Blast Cells % 0 % 06/12/20 04:40 Nucleated RBC % Not Reportable 06/12/20 04:40 Seg Neutrophils # Carpet Mechanic 06/07/20 12:13 Seg Neutrophils # Man 8.0 K/mm3 (1.8-7.7) H 06/12/20 04:40 Band Neutrophils # 0.3 K/mm3 06/12/20 04:40 Lymphocytes # (Manual) 0.2 K/mm3 (1.2-5.4) L 06/12/20 04:40 Abs React Lymphs (Man) 0.0 K/mm3 06/12/20 04:40 Monocytes # (Manual) 0.0 K/mm3 (0.0-0.8) 06/12/20 04:40 Eosinophils # (Manual) 0.0 K/mm3 (0.0-0.4) 06/12/20 04:40 Basophils # (Manual) 0.0 K/mm3 (0.0-0.1) 06/12/20 04:40 Metamyelocytes # 0.0 K/mm3 06/12/20 04:40 Myelocytes # 0.0 K/mm3 06/12/20 04:40 Promyelocytes # 0.0 K/mm3 06/12/20 04:40 Blast Cells # 0.0 K/mm3 06/12/20 04:40 WBC Morphology Not Reportable 06/12/20 04:40 Hypersegmented Neuts Not Reportable 06/12/20 04:40 Hyposegmented Neuts Not Reportable 06/12/20 04:40 Hypogranular Neuts Not Reportable 06/12/20 04:40 Smudge Cells Not Reportable 06/12/20 04:40 Toxic Granulation Not Reportable 06/12/20 04:40 Toxic Vacuolation Not Reportable 06/12/20 04:40 Dohle Bodies Not Reportable 06/12/20 04:40 Pelger-Huet Anomaly Not Reportable 06/12/20 04:40 Manuel Rods Not Reportable 06/12/20 04:40 Platelet Estimate Consistent w auto 06/12/20 04:40 Clumped Platelets Not Reportable 06/12/20 04:40 Plt Clumps, EDTA Not Reportable 06/12/20 04:40 Large Platelets Not Reportable 06/12/20 04:40 Giant Platelets Not Reportable 06/12/20 04:40 Platelet Satelliting Not Reportable 06/12/20 04:40 Plt Morphology Comment Not Reportable 06/12/20 04:40 RBC Morphology Not Reportable 06/12/20 04:40 Dimorphic RBCs Not Reportable 06/12/20 04:40 Polychromasia Not Reportable 06/12/20 04:40 Hypochromasia Not Reportable 06/12/20 04:40 Poikilocytosis Not Reportable 06/12/20 04:40 Anisocytosis Not Reportable 06/12/20 04:40 Microcytosis Not Reportable 06/12/20 04:40 Macrocytosis Few 06/12/20 04:40 Spherocytes Not Reportable 06/12/20 04:40 Pappenheimer Bodies Not Reportable 06/12/20 04:40 Sickle Cells Not Reportable 06/12/20 04:40 Target Cells Not Reportable 06/12/20 04:40 Tear Drop Cells Not Reportable 06/12/20 04:40 Ovalocytes Rare 06/12/20 04:40 Helmet Cells Not Reportable 06/12/20 04:40 [place] Bodies Not Reportable 06/12/20 04:40 [place] Rings Not Reportable 06/12/20 04:40 Mil Cells Not Reportable 06/12/20 04:40 Bite Cells Not Reportable 06/12/20 04:40 Crenated Cell Not Reportable 06/12/20 04:40 Elliptocytes Not Reportable 06/12/20 04:40 Acanthocytes (Spur) Not Reportable 06/12/20 04:40 Rouleaux Not Reportable 06/12/20 04:40 Hemoglobin C Crystals Not Reportable 06/12/20 04:40 Schistocytes Not Reportable 06/12/20 04:40 Malaria parasites Not Reportable 06/12/20 04:40 Scott Bodies Not Reportable 06/12/20 04:40 Hem Pathologist Commnt No 06/12/20 04:40 PT 14.1 Sec. (12.2-14.9) 06/07/20 12:13 INR 1.07 (0.87-1.13) 06/07/20 12:13 D-Dimer 742.10 ng/mlDDU (0-234) H 06/07/20 12:13 Sodium 141 mmol/L (137-145) 06/15/20 08:22 Potassium 4.1 mmol/L (3.6-5.0) 06/15/20 08:22 Chloride 96.1 mmol/L (98-107) L 06/15/20 08:22 Carbon Dioxide 35 mmol/L (22-30) H 06/15/20 08:22 Anion Gap 14 mmol/L 06/15/20 08:22 BUN 27 mg/dL (9-20) H 06/15/20 08:22 Creatinine 0.6 mg/dL (0.8-1.3) L 06/15/20 08:22 Estimated GFR > 60 ml/min 06/15/20 08:22 BUN/Creatinine Ratio 45 % 06/15/20 08:22 Glucose 135 mg/dL (75-100) H 06/15/20 08:22 Lactic Acid 1.70 mmol/L (0.7-2.0) 06/07/20 12:13 Calcium 8.5 mg/dL (8.4-10.2) 06/15/20 08:22 Magnesium 2.70 mg/dL (1.7-2.3) H 06/07/20 12:13 Ferritin 397.3 ng/mL (13.0-400.0) 06/07/20 12:13 Total Bilirubin 0.40 mg/dL (0.1-1.2) 06/12/20 04:40 AST 23 units/L (5-40) 06/12/20 04:40 ALT 59 units/L (7-56) H 06/12/20 04:40 Alkaline Phosphatase 75 units/L (35-129) 06/12/20 04:40 Lactate Dehydrogenase 369 units/L (91-180) H 06/07/20 12:13 Total Creatine Kinase 104 units/L (55-170) 06/07/20 12:13 C-Reactive Protein 6.70 mg/dL (0.00-1.30) H 06/07/20 12:13 Total Protein 5.3 g/dL (6.3-8.2) L 06/12/20 04:40 Albumin 2.8 g/dL (3.9-5) L 06/12/20 04:40 Albumin/Globulin Ratio 1.1 % 06/12/20 04:40 Procalcitonin 0.24 ng/mL (<0.15) 06/07/20 12:13 Coronavirus (PCR) Negative (Negative) 06/08/20 Unknown Blood Type A POSITIVE 06/07/20 12:16 Antibody Screen Negative 06/07/20 12:16 - Diagnostic Impressions Diagnostic Impressions: Echocardiogram 06/09/20 00:01 Transthoracic Echocardiogram Indication: SOB BP: 134/74 HR: 72 Conclusions *The right heart chambers are both at least moderately dilated. *There is mild to moderate tricuspid regurgitation. *There is evidence of mild pulmonary hypertension. *The right ventricular systolic pressure is calculated at 37 mmHg. *Left ventricular chamber size and systolic function are normal. *The estimated ejection fraction is 50-55%. *The left atrium is mildly dilated. *There is mild mitral regurgitation. Findings Procedure Info: The study quality is technically difficult. The study is technically limited due to the patient's history of COPD. Left Ventricle: The left ventricular chamber size is normal. There is no left ventricular hypertrophy. Global left ventricular systolic function is at the lower limits of normal. The estimated ejection fraction is 50-55%. Left Atrium: The left atrium is mildly dilated. Right Ventricle: The right ventricle is moderately dilated. The right ventricular global systolic function is moderately reduced. Right Atrium: The right atrium is moderate to severely dilated. Aortic Valve: The aortic valve is trileaflet. The aortic valve leaflets are mildly thickened. There is no evidence of aortic regurgitation. There is no evidence of aortic stenosis. Mitral Valve: The mitral valve leaflets are mildly thickened. There is mild mitral regurgitation. There is no evidence of mitral stenosis. Tricuspid Valve: The tricuspid valve leaflets are mildly thickened. There is mild to moderate tricuspid regurgitation. The right ventricular systolic pressure is calculated at 37 mmHg. There is evidence of mild pulmonary hypertension. Pericardium: There is no pericardial effusion. Aorta: There is no dilatation of the ascending aorta. There is no dilatation of the aortic root. Venous: The inferior vena cava appears normal in size. Measurements Chambers 2D Name Value Normal Range IVSd (2D) 0.75 cm (0.6 - 1.1) LVPWd (2D) 0.69 cm (0.6 - 1.1) LVIDd (2D) 4.56 cm (3.7 - 5.6) LVIDs (2D) 3.19 cm (2 - 3.8) LV FS (2D) 30.14 % - EF Teichholz (2D) 57.51 % - Ao root diameter (2D) 2.81 cm (2 - 3.7) Volumes/Mass Name Value Normal Range LA ESV SP 4CH (A/L) 23.97 ml - LA ESV SP 2CH (A/L) 30.03 ml - LA ESV BP (A/L) 27.07 ml - LA ESV BP (A/L) index 16.21 ml/m2 - LA ESV SP 4CH (MOD) 19.44 ml - LA ESV SP 2CH (MOD) 27.6 ml - LA ESV BP (MOD) 23.25 ml - LA ESV BP (MOD) index 13.92 ml/m2 - LV EDV SP 4CH (MOD) 61.87 ml - LV ESV SP 4CH (MOD) 21.74 ml - EF SP 4CH (MOD) 64.86 % - LV EDV SP 2CH (MOD) 58.35 ml - LV ESV SP 2CH (MOD) 18.85 ml - EF SP 2CH (MOD) 67.68 % - LV EDV BP 59.85 ml - LV ESV BP 21.29 ml - BP EF (MOD) 64.43 % - Diastolic/Systolic Function Name Value Normal Range MV E-wave Vmax 0.89 m/sec - MV deceleration time 225.66 msec - MV A-wave Vmax 0.7 m/sec - MV E:A ratio 1.27 ratio - Aortic Valve Name Value Normal Range AV Vmax 1.3 m/sec - AV VTI 26.54 cm - AV peak gradient 6.76 mmHg - AV mean gradient 3.28 mmHg - LVOT diameter 2.02 cm - LVOT Vmax 1.1 m/sec - LVOT VTI 22.1 cm - LVOT peak gradient 4.8 mmHg - LVOT mean gradient 1.73 mmHg - SV LVOT 70.98 ml - KEMI (continuity Vmax) 2.71 cm2 - KEMI (continuity VTI) 2.67 cm2 - Mitral Valve Name Value Normal Range MV Vmax 0.96 m/sec - MV VTI 24.34 cm - MV peak gradient 3.68 mmHg - MV mean gradient 1.4 mmHg - MV PHT 64.07 msec - MVA (PHT) 3.43 cm2 - MVA (continuity VTI) 2.92 cm2 - Tricuspid Valve Name Value Normal Range TR Vmax 2.92 m/sec - TR peak gradient 34 mmHg - RAP 3 mmHg - RVSP 37 mmHg - IVC diameter 2 cm (1.2 - 2.3) Pulmonic Valve/Qp:Qs Name Value Normal Range PV Vmax 0.85 m/sec - PV VTI 16.92 cm - PV peak gradient 2.87 mmHg - PV mean gradient 1.05 mmHg - RVOT Vmax 0.66 m/sec - RVOT VTI 12.39 cm - RVOT peak gradient 1.74 mmHg - Espitia/IV: Voiding Method Urinal IV Catheter Type [Right INT / Saline Lock Forearm] Active Medications - Current Medications Current Medications: Generic Name Dose Route Start Last Admin Trade Name Freq PRN Reason Stop Dose Admin Acetaminophen 650 mg 06/07/20 12:57 06/14/20 01:54 Tylenol PO 650 mg Q6H PRN Administration Pain MILD(1-3)/Fever >100.5/CANALES Apixaban 5 mg 06/11/20 22:00 06/16/20 11:14 Eliquis PO 5 mg Q12HR SANDRA Administration Protocol Diltiazem HCl 30 mg 06/07/20 18:00 06/16/20 05:34 Cardizem PO 30 mg Q6HR SANDRA Administration Methylprednisolone Sodium Succinate 60 mg 06/14/20 14:00 06/16/20 05:34 Solu-Medrol IV 60 mg Q8HR SANDRA Administration Sodium Chloride 10 ml 06/07/20 22:00 06/16/20 11:14 Sodium Chloride Flush Syringe 10 Ml IV 10 ml BID SANDRA Administration Sodium Chloride 10 ml 06/07/20 12:57 Sodium Chloride Flush Syringe 10 Ml IV PRN PRN LINE FLUSH Tamsulosin HCl 0.4 mg 06/08/20 10:00 06/16/20 11:14 Flomax PO 0.4 mg DAILY SANDRA Administration Nutrition/Malnutrition Assess - Dietary Evaluation Nutrition/Malnutrition Findings: Nutrition Notes Start: 06/13/20 14:25 Freq: Status: Active Protocol: Document 06/13/20 14:25 LM (Rec: 06/13/20 14:26 LM [id number]) Nutrition Notes Need for Assessment generated from: LOS Initial or Follow up Brief Note Subjective/Other Information Screen for LOS. Pt with 100% intakes in chart. Nutrition Intervention Revisit per MD consult or patient Sign Off request:
[2020-06-17] MEDS: dilTIAZem 30 MG TAB PO SCH ×3 (06:02→13:53)
[2020-06-17] MEDS: methylPREDNISolone Sod Succinate 125 MG/2 ML INJ IV SCH (06:03)
[2020-06-17 08:24] LABS: Alanine Aminotransferase 55 units/L (7-56); Albumin 2.7 g/dL (3.9-5); BUN/Creatinine Ratio 56; Blood Urea Nitrogen 28 mg/dL (9-20); Calcium 7.7 mg/dL (8.4-10.2); Hemolysis Index 40
[2020-06-17] MEDS ORDERED: methylPREDNISolone Sod Succinate 125 MG/2 ML INJ IV SCH (09:29)
--- NOTE | 2020-06-17 09:29 | Progress Note ---
Assessment and Plan 79 y/o male with pulmonary fibrosis and prior history of lung CA, admitted with acute hypoxic respiratory failure, worsening of fibrotic lung disease and concern for COVID 06/17/2020: Lasix again today. Please obtain walk test to determine oxygen needs. Will drop to solumedrol 40q8 starting today. If tolerates this drop then will send out on prednisone taper starting at 60 daily and will go over about 2 week time frame. Patient hopefully ready for discharge tomorrow at the latest . 06/16/2020: Hold on lasix today. Will wean steroids again starting tomorrow. Would suggest checking chemistry for tomorrow morning. Most likely patient is going to require home oxygen. 06/15/2020: Continue steroids at 60q8. Renal function was stable on chemistry from yesterday so will give lasix today. Will attempt to wean FiO2 as tolerated for sats >88%. 06/14/2020: Tolerated lasix, may hold today and consider a dose tomorrow. Please check chemistry today or in the am to evaluate renal function. Now that oxygen requirement is down, can start to wean steroids. Will drop down to 60q8 starting today. IMS ordered repeat CXR for today. Clinically patient is improving regardless of read. Will likely need oxygen at home. Will continue to follow. 06/13/2020: Lasix again today. 20mg IV. Suggest checking labs again this weekend. Continue steroids, will not wean down until FiO2 requirement is lower. 06/12/2020: Lasix today BP is better this am. Will only give 20. Yesterday was the first day recorded as being negative. Continue steroids at current dosing for now. Will attempt to wean as soon as oxygen requirement improves. Given response to steroids, patient could have ITP or some form of autoimmune related thrombocytopenia but would need bone marrow biopsy to determine this. Can follow up with jerrod as an outpatient as now I don't think think Heme comes to this facility. BP and volume control for Pulm HTN. Prognosis remains guarded. 1. COVID negative. 2. 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 Diresis is really the only thing to offer, but will have to hold today given BP. 3. I did increase his IV steroids today since I cannot diurese today to see if this helps. 4. Wean FiO2 for sats >88% 5. Platelet count improved drastically. 6. Will discuss with patient code status, given his degree of lung disease, if he is intubated, the likely aguilera of him coming off successfully is very very low. Subjective Date of service: 06/17/20 Principal diagnosis: Acute hypoxic respiratory failure Interval history: No acute events. Still on about 4 liters NC. Objective Vital Signs - 12hr 06/16/20 06/16/20 06/17/20 22:00 22:35 00:00 Temperature 97.9 F Pulse Rate 75 88 79 Respiratory 18 22 Rate Blood Pressure 153/70 148/76 O2 Sat by Pulse 92 93 Oximetry 06/17/20 06/17/20 05:55 06:02 Temperature 97.7 F Pulse Rate 67 67 Respiratory 20 Rate Blood Pressure 150/68 150/68 O2 Sat by Pulse 91 Oximetry Constitutional: no acute distress Eyes: non-icteric ENT: oropharynx moist Neck: supple Effort: mildly labored Ascultation: Bilateral: diminished breath sounds, rales Cardiovascular: regular rate and rhythm (Tachycardia noted) Gastrointestinal: normoactive bowel sounds, soft, non-tender, non-distended Integumentary: other (Petechial rash present) Extremities: other (Early clubbing present. Petechial rash lower extremities) Neurologic: normal mental status, non-focal exam CBC and BMP: 06/12/20 04:40 06/17/20 06:49 ABG, PT/INR, D-dimer: PT/INR, D-dimer PT 14.1 Sec. (12.2-14.9) 06/07/20 12:13 INR 1.07 (0.87-1.13) 06/07/20 12:13 D-Dimer 742.10 ng/mlDDU (0-234) H 06/07/20 12:13 Abnormal lab findings: Abnormal Labs 06/07/20 06/07/20 06/07/20 12:13 12:13 12:13 WBC RBC Hgb 11.7 L Hct 34.3 L Plt Count 6 L* Seg Neuts % (Manual) 93.0 H Lymphocytes % (Manual) 4.0 L Seg Neutrophils # Man Lymphocytes # (Manual) 0.2 L Monocytes # (Manual) D-Dimer 742.10 H Sodium 136 L Chloride Carbon Dioxide BUN 21 H Creatinine Glucose 138 H Calcium Magnesium 2.70 H AST 80 H ALT 71 H Lactate Dehydrogenase C-Reactive Protein Total Protein 6.1 L Albumin 3.2 L 06/07/20 06/07/20 06/08/20 12:13 15:59 04:53 WBC RBC 3.39 L 3.17 L Hgb 10.5 L 9.7 L Hct 31.1 L 28.9 L Plt Count 6 L* 11 L* Seg Neuts % (Manual) 93.0 H Lymphocytes % (Manual) 5.0 L Seg Neutrophils # Man 8.5 H Lymphocytes # (Manual) 0.5 L Monocytes # (Manual) D-Dimer Sodium Chloride Carbon Dioxide BUN Creatinine Glucose 139 H Calcium Magnesium AST ALT Lactate Dehydrogenase 369 H C-Reactive Protein 6.70 H Total Protein Albumin 06/08/20 06/09/20 06/10/20 04:53 14:06 08:17 WBC 16.5 H 12.3 H RBC 3.18 L 3.31 L Hgb 9.8 L 10.4 L Hct 29.5 L 30.5 L Plt Count 84 L D 115 L Seg Neuts % (Manual) 82.0 H Lymphocytes % (Manual) 11.0 L Seg Neutrophils # Man 13.5 H Lymphocytes # (Manual) Monocytes # (Manual) 1.2 H D-Dimer Sodium 136 L Chloride Carbon Dioxide BUN 22 H Creatinine Glucose 150 H Calcium 8.3 L Magnesium AST 57 H ALT 65 H Lactate Dehydrogenase C-Reactive Protein Total Protein Albumin 2.9 L 06/10/20 06/12/20 06/12/20 08:17 04:40 04:40 WBC RBC 3.15 L Hgb 9.7 L Hct 28.9 L Plt Count Seg Neuts % (Manual) 94.0 H Lymphocytes % (Manual) 2.0 L Seg Neutrophils # Man 8.0 H Lymphocytes # (Manual) 0.2 L Monocytes # (Manual) D-Dimer Sodium Chloride Carbon Dioxide 32 H 32 H BUN 22 H 23 H Creatinine 0.6 L 0.6 L Glucose 142 H 143 H Calcium 8.3 L Magnesium AST ALT 59 H Lactate Dehydrogenase C-Reactive Protein Total Protein 5.3 L Albumin 2.8 L 06/14/20 06/15/20 06/17/20 12:39 08:22 06:49 WBC RBC Hgb Hct Plt Count Seg Neuts % (Manual) Lymphocytes % (Manual) Seg Neutrophils # Man Lymphocytes # (Manual) Monocytes # (Manual) D-Dimer Sodium 135 L Chloride 91.6 L 96.1 L 96.8 L Carbon Dioxide 35 H 35 H BUN 25 H 27 H 28 H Creatinine 0.6 L 0.6 L 0.5 L Glucose 203 H 135 H 115 H Calcium 7.7 L Magnesium AST ALT Lactate Dehydrogenase C-Reactive Protein Total Protein 4.7 L Albumin 2.7 L
[2020-06-17] MEDS ORDERED: FUROSEMIDE 20 MG/2 ML INJ IV NR (09:30)
[2020-06-17] MEDS: TAMSULOSIN 0.4 MG CAP PO SCH (10:18)
[2020-06-17] MEDS: APIXABAN 5 MG TAB PO SCH ×2 (10:19→21:48)
[2020-06-17] MEDS: methylPREDNISolone Sod Succinate 40 MG/1 ML INJ IV SCH ×2 (13:54→21:48)
--- NOTE | 2020-06-17 18:13 | Progress Note ---
Assessment and Plan - Patient Problems (1) Acute hypoxemic respiratory failure Current Visit: Yes Status: Acute Plan to address problem: Acute hypoxemic respiratory failure stable with O2. Will need home O2. Weaning steroids today to a prednisone taper. Patient will be discharged a.m. 60 mg taper over 2 weeks. (2) Anticoagulant long-term use Current Visit: Yes Status: Acute Plan to address problem: Continue current anticoagulation. (3) Atrial fibrillation Current Visit: Yes Status: Acute Plan to address problem: Long-term anticoagulation use. Echocardiogram show pulmonary hypertension with cor pulmonale. Only treating with diuretics. (4) COPD with exacerbation Current Visit: Yes Status: Acute Plan to address problem: COPD exacerbation stable with current steroid use. 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 (5) Lung cancer Current Visit: Yes Status: Acute Plan to address problem: Patient lung cancer does not want any further chemo. Discussed with patient about hospice services. No viable treatment options without chemo. Patient wants to be DNR. (6) Pneumonia Current Visit: Yes Status: Acute Qualifiers: Laterality: bilateral Plan to address problem: Treated with antibiotics will discharge on continue p.o. antibiotics. (7) Suspected 2019 novel coronavirus infection Current Visit: Yes Status: Acute (8) Nicotine dependence Current Visit: No Status: Acute Qualifiers: Nicotine product type: cigarettes Substance use status: in withdrawal Qualified Code(s): F17.213 - Nicotine dependence, cigarettes, with withdrawal Plan to address problem: Smoking cessation counseling. Subjective Date of service: 06/17/20 Principal diagnosis: Acute hypoxic respiratory failure Interval history: Patient 79-year-old male with a history of lung cancer pulmonary fibrosis presented with bilateral pulmonary infiltrates. Patient was COVID negative. Patient required continuous O2 will need oxygen upon discharge. At present states he is breathing better. Patient states he can do everything with his current oxygen level. Objective - Constitutional Vitals: Vital Signs - 12hr 06/17/20 06/17/20 06/17/20 10:00 11:48 13:53 Temperature 98.2 F Pulse Rate 73 73 Respiratory 20 20 Rate Blood Pressure 108/42 O2 Sat by Pulse 92 92 Oximetry 06/17/20 16:53 Temperature 98.2 F Pulse Rate 74 Respiratory 20 Rate Blood Pressure 125/66 O2 Sat by Pulse 91 Oximetry General appearance: Present: no acute distress, well-nourished - EENT Eyes: PERRL, EOM intact ENT: hearing intact, clear oral mucosa Ears: bilateral: normal - Neck Neck: supple, normal ROM - Respiratory Respiratory effort: normal Respiratory: bilateral: CTA, diminished, rhonchi (Few) - Breasts Breasts: normal - Cardiovascular Rhythm: regular Heart Sounds: Present: S1 & S2. Absent: gallop, rub Extremities: pulses intact, No edema, normal color, Full ROM - Gastrointestinal General gastrointestinal: Present: soft, non-tender, non-distended, normal bowel sounds - Genitourinary Male genitourinary: normal - Integumentary Integumentary: clear, warm, dry - Musculoskeletal Musculoskeletal: 1, strength equal bilaterally - Neurologic Neurologic: moves all extremities - Psychiatric Psychiatric: memory intact, appropriate mood/affect, intact judgment & insight - Labs CBC & Chem 7: 06/12/20 04:40 06/17/20 06:49 Labs: Abnormal lab results 06/17/20 Range/Units 06:49 Chloride 96.8 L (98-107) mmol/L BUN 28 H (9-20) mg/dL Creatinine 0.5 L (0.8-1.3) mg/dL Glucose 115 H (75-100) mg/dL Calcium 7.7 L (8.4-10.2) mg/dL Total Protein 4.7 L (6.3-8.2) g/dL Albumin 2.7 L (3.9-5) g/dL
[2020-06-18] MEDS: dilTIAZem 30 MG TAB PO SCH ×4 (01:29→12:00)
[2020-06-18 05:43] LABS: Alanine Aminotransferase 59 units/L (7-56); Albumin 2.9 g/dL (3.9-5); Blood Urea Nitrogen 27 mg/dL (9-20); Calcium 8.2 mg/dL (8.4-10.2); Hemolysis Index 5
[2020-06-18 05:48] LABS: BUN/Creatinine Ratio 39
[2020-06-18] MEDS: methylPREDNISolone Sod Succinate 40 MG/1 ML INJ IV SCH ×2 (05:48→13:36)
[2020-06-18] MEDS: TAMSULOSIN 0.4 MG CAP PO SCH (09:45)
[2020-06-18] MEDS: APIXABAN 5 MG TAB PO SCH (09:45)
--- NOTE | 2020-06-18 09:48 | Discharge Summary ---
Providers - Providers Date of Admission: 06/07/20 12:57 Date of discharge: 06/18/20 Attending physician: CARLEEN NASH 06/07/20 12:10 Consult to Physician [CONS] Urgent Comment: Consulting Provider: PEPE DAWN Physician Instructions: Reason For Exam: resp distress, covid vs copd/ emphysema Consult to Physician [CONS] Urgent Comment: Consulting Provider: DALTON MOSER Physician Instructions: Reason For Exam: copd resp failure Primary care physician: BARRON FRIEDMAN Hospitalization Condition: Serious Pertinent studies: Echocardiogram which showed cor pulmonale and pulmonary hypertension. Chest x- ray consistent with lung cancer. Hospital course: Patient 79-year-old male presented with acute respiratory failure and worsening pulmonary fibrosis lung disease. Patient seen by pulmonology. Patient also had bilateral pneumonia that was treated with antibiotics.. Patient also had underlying lung cancer which exacerbated patient's condition. Patient has chronic pulmonary fibrosis. Will be discharged with steroids tapered over 2 weeks. Started at 60 mg. Disposition: TO HOME OR SELFCARE - Discharge Diagnoses (1) Acute hypoxemic respiratory failure Status: Acute Comment: Secondary to worsening pulmonary fibrosis. Will discharge on steroids. Follow-up with pulmonology 5 to 7 days. (2) Anticoagulant long-term use Status: Acute Comment: Patient with atrial fibrillation rate was controlled. Continue long-term anticoagulation with Eliquis (3) Atrial fibrillation Status: Acute Comment: Long-term anticoagulation with Eliquis. (4) COPD with exacerbation Status: Acute Comment: Continue long-acting beta agonist. Steroids. Follow pulmonology outpatient. (5) Lung cancer Status: Acute Comment: Will follow wound neurology as outpatient. Patient states he does not want any further chemotherapy done at this time. Patient to consider hospice services. (6) Pneumonia Status: Acute Qualifiers: Laterality: bilateral Comment: Treated with empiric antibiotic coverage. (7) Suspected 2019 novel coronavirus infection Status: Acute Comment: COVID negative. (8) Nicotine dependence Status: Acute Qualifiers: Nicotine product type: cigarettes Substance use status: in withdrawal Qualified Code(s): F17.213 - Nicotine dependence, cigarettes, with withdrawal Comment: Offered nicotine patch. Core Measure Documentation - Palliative Care Palliative Care/ Comfort Measures: Not Applicable - Core Measures Any of the following diagnoses?: none Exam - Constitutional Vitals: Temp Pulse Resp BP Pulse Ox 97.7 F 70 20 135/77 95 06/18/20 06:04 06/18/20 06:04 06/18/20 08:39 06/18/20 06:04 06/18/20 08:13 General appearance: Present: no acute distress, well-nourished - EENT Eyes: Present: PERRL ENT: hearing intact, clear oral mucosa - Neck Neck: Present: supple, normal ROM - Respiratory Respiratory effort: normal Respiratory: bilateral: CTA, diminished, rhonchi (Chronic rhonchi dry decreased breath sounds wheezing.) - Cardiovascular Heart Sounds: Present: S1 & S2. Absent: rub, click - Extremities Extremities: pulses symmetrical, No edema Peripheral Pulses: within normal limits - Abdominal General gastrointestinal: Present: soft, non-tender, non-distended, normal bowel sounds Male genitourinary: Present: normal - Integumentary Integumentary: Present: clear, warm, dry - Musculoskeletal Musculoskeletal: gait normal, strength equal bilaterally - Psychiatric Psychiatric: appropriate mood/affect, intact judgment & insight - Neurologic Neurologic: CNII-XII intact, moves all extremities Plan Activity: up only with assistance Weight Bearing Status: Weight Bear as Tolerated Diet: low cholesterol Special Instructions: home oxygen via, home health RN Follow up with: BARRON FRIEDMAN MD [Primary Care Provider] - 3-5 Days Prescriptions: dilTIAZem [Cardizem] 30 mg PO Q6HR #120 tablet Apixaban [Eliquis] 5 mg PO Q12HR #60 tablet
--- NOTE | 2020-06-18 10:36 | XRay Report ---
XR chest 1V ap INDICATION / CLINICAL INFORMATION: Hypoxia. COMPARISON: 06/11/2020 FINDINGS: SUPPORT DEVICES: None. HEART / MEDIASTINUM: Unchanged. LUNGS / PLEURA: Unchanged interstitial thickening. Lung parenchyma is not significantly changed. Cos tophrenic sulci are sharp. No pneumothorax. ADDITIONAL FINDINGS: No significant additional findings. IMPRESSION: 1. No significant interval change. Signer Name: Sj Meadows MD Signed: 06/14/2020 9:18 AM Workstation Name: [id number]
[2020-06-18 12:51] VITALS: BP 117/67
--- NOTE | 2020-06-18 16:05 | Progress Note ---
Assessment and Plan 79 y/o male with pulmonary fibrosis and prior history of lung CA, admitted with acute hypoxic respiratory failure, worsening of fibrotic lung disease and concern for COVID 06/18/2020: No objection to discharge today, needs oxygen therapy for home. Follow up with Abdi in 10-14 days. Prednisone taper. 06/17/2020: Lasix again today. Please obtain walk test to determine oxygen needs. Will drop to solumedrol 40q8 starting today. If tolerates this drop then will send out on prednisone taper starting at 60 daily and will go over about 2 week time frame. Patient hopefully ready for discharge tomorrow at the latest . 06/16/2020: Hold on lasix today. Will wean steroids again starting tomorrow. Would suggest checking chemistry for tomorrow morning. Most likely patient is going to require home oxygen. 06/15/2020: Continue steroids at 60q8. Renal function was stable on chemistry from yesterday so will give lasix today. Will attempt to wean FiO2 as tolerated for sats >88%. 06/14/2020: Tolerated lasix, may hold today and consider a dose tomorrow. Please check chemistry today or in the am to evaluate renal function. Now that oxygen requirement is down, can start to wean steroids. Will drop down to 60q8 starting today. IMS ordered repeat CXR for today. Clinically patient is improving regardless of read. Will likely need oxygen at home. Will continue to follow. 06/13/2020: Lasix again today. 20mg IV. Suggest checking labs again this weekend. Continue steroids, will not wean down until FiO2 requirement is lower. 06/12/2020: Lasix today BP is better this am. Will only give 20. Yesterday was the first day recorded as being negative. Continue steroids at current dosing for now. Will attempt to wean as soon as oxygen requirement improves. G iven response to steroids, patient could have ITP or some form of autoimmune related thrombocytopenia but would need bone marrow biopsy to determine this. Can follow up with jerrod as an outpatient as now I don't think think Jerrod comes to this facility. BP and volume control for Pulm HTN. Prognosis remains guarded. 1. COVID negative. 2. 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 Diresis is really the only thing to offer, but will have to hold today given BP. 3. I did increase his IV steroids today since I cannot diurese today to see if this helps. 4. Wean FiO2 for sats >88% 5. Platelet count improved drastically. 6. Will discuss with patient code status, given his degree of lung disease, if he is intubated, the likely aguilera of him coming off successfully is very very low. Subjective Date of service: 06/18/20 Principal diagnosis: Acute hypoxic respiratory failure Interval history: No acute events. Being discharged today. Home O2 being arranged. Objective Vital Signs - 12hr 06/18/20 06/18/20 06/18/20 06:00 06:04 08:13 Temperature 97.7 F Pulse Rate 70 70 Respiratory 22 Rate Blood Pressure 135/77 135/77 O2 Sat by Pulse 90 95 Oximetry 06/18/20 06/18/20 08:39 11:27 Temperature 97.9 F Pulse Rate 78 Respiratory 20 22 Rate Blood Pressure 117/67 O2 Sat by Pulse 97 Oximetry Constitutional: no acute distress Eyes: non-icteric ENT: oropharynx moist Neck: supple Effort: mildly labored Ascultation: Bilateral: diminished breath sounds, rales Cardiovascular: regular rate and rhythm (Tachycardia noted) Gastrointestinal: normoactive bowel sounds, soft, non-tender, non-distended Integumentary: other (Petechial rash present) Extremities: other (Early clubbing present. Petechial rash lower extremities) Neurologic: normal mental status, non-focal exam CBC and BMP: 06/12/20 04:40 06/18/20 04:09 ABG, PT/INR, D-dimer: PT/INR, D-dimer PT 14.1 Sec. (12.2-14.9) 06/07/20 12:13 INR 1.07 (0.87-1.13) 06/07/20 12:13 D-Dimer 742.10 ng/mlDDU (0-234) H 06/07/20 12:13 Abnormal lab findings: Abnormal Labs 06/07/20 06/07/20 06/07/20 12:13 12:13 12:13 WBC RBC Hgb 11.7 L Hct 34.3 L Plt Count 6 L* Seg Neuts % (Manual) 93.0 H Lymphocytes % (Manual) 4.0 L Seg Neutrophils # Man Lymphocytes # (Manual) 0.2 L Monocytes # (Manual) D-Dimer 742.10 H Sodium 136 L Chloride Carbon Dioxide BUN 21 H Creatinine Glucose 138 H POC Glucose Calcium Magnesium 2.70 H AST 80 H ALT 71 H Lactate Dehydrogenase C-Reactive Protein Total Protein 6.1 L Albumin 3.2 L 06/07/20 06/07/20 06/08/20 12:13 15:59 04:53 WBC RBC 3.39 L 3.17 L Hgb 10.5 L 9.7 L Hct 31.1 L 28.9 L Plt Count 6 L* 11 L* Seg Neuts % (Manual) 93.0 H Lymphocytes % (Manual) 5.0 L Seg Neutrophils # Man 8.5 H Lymphocytes # (Manual) 0.5 L Monocytes # (Manual) D-Dimer Sodium Chloride Carbon Dioxide BUN Creatinine Glucose 139 H POC Glucose Calcium Magnesium AST ALT Lactate Dehydrogenase 369 H C-Reactive Protein 6.70 H Total Protein Albumin 06/08/20 06/09/20 06/10/20 04:53 14:06 08:17 WBC 16.5 H 12.3 H RBC 3.18 L 3.31 L Hgb 9.8 L 10.4 L Hct 29.5 L 30.5 L Plt Count 84 L D 115 L Seg Neuts % (Manual) 82.0 H Lymphocytes % (Manual) 11.0 L Seg Neutrophils # Man 13.5 H Lymphocytes # (Manual) Monocytes # (Manual) 1.2 H D-Dimer Sodium 136 L Chloride Carbon Dioxide BUN 22 H Creatinine Glucose 150 H POC Glucose Calcium 8.3 L Magnesium AST 57 H ALT 65 H Lactate Dehydrogenase C-Reactive Protein Total Protein Albumin 2.9 L 06/10/20 06/12/20 06/12/20 08:17 04:40 04:40 WBC RBC 3.15 L Hgb 9.7 L Hct 28.9 L Plt Count Seg Neuts % (Manual) 94.0 H Lymphocytes % (Manual) 2.0 L Seg Neutrophils # Man 8.0 H Lymphocytes # (Manual) 0.2 L Monocytes # (Manual) D-Dimer Sodium Chloride Carbon Dioxide 32 H 32 H BUN 22 H 23 H Creatinine 0.6 L 0.6 L Glucose 142 H 143 H POC Glucose Calcium 8.3 L Magnesium AST ALT 59 H Lactate Dehydrogenase C-Reactive Protein Total Protein 5.3 L Albumin 2.8 L 06/14/20 06/15/20 06/17/20 12:39 08:22 06:49 WBC RBC Hgb Hct Plt Count Seg Neuts % (Manual) Lymphocytes % (Manual) Seg Neutrophils # Man Lymphocytes # (Manual) Monocytes # (Manual) D-Dimer Sodium 135 L Chloride 91.6 L 96.1 L 96.8 L Carbon Dioxide 35 H 35 H BUN 25 H 27 H 28 H Creatinine 0.6 L 0.6 L 0.5 L Glucose 203 H 135 H 115 H POC Glucose Calcium 7.7 L Magnesium AST ALT Lactate Dehydrogenase C-Reactive Protein Total Protein 4.7 L Albumin 2.7 L 06/17/20 06/18/20 23:40 04:09 WBC RBC Hgb Hct Plt Count Seg Neuts % (Manual) Lymphocytes % (Manual) Seg Neutrophils # Man Lymphocytes # (Manual) Monocytes # (Manual) D-Dimer Sodium Chloride 95.9 L Carbon Dioxide 33 H BUN 27 H Creatinine 0.7 L Glucose 119 H POC Glucose 140 H Calcium 8.2 L Magnesium AST ALT 59 H Lactate Dehydrogenase C-Reactive Protein Total Protein 5.1 L Albumin 2.9 L
== END 2020-06-18 13:43 | disposition home or self-care (01) | DRG 871 ==
LOC: ED 11:23 → IMCU 12:57 → 3A 06-08 15:29
PROVIDERS: ADMIT Internal Medicine; ATTEND Internal Medicine
PROC: 30233R1 Transfusion of Nonautologous Platelets into Peripheral Vein, Percutaneous Approach (ICD-10-PCS; principal; 2020-06-08)
DX: A41.9 Sepsis, unspecified organism (principal); J18.9 Pneumonia, unspecified organism; J96.01 Acute respiratory failure with hypoxia; C34.90 Malignant neoplasm of unspecified part of unspecified bronchus or lung; J44.1 Chronic obstructive pulmonary disease with (acute) exacerbation; F17.213 Nicotine dependence, cigarettes, with withdrawal; D68.59 Other primary thrombophilia; M17.10 Unilateral primary osteoarthritis, unspecified knee; I48.91 Unspecified atrial fibrillation; D69.6 Thrombocytopenia, unspecified; J84.10 Pulmonary fibrosis, unspecified; I10 Essential (primary) hypertension; Z92.21 Personal history of antineoplastic chemotherapy; Z82.49 Family history of ischemic heart disease and other diseases of the circulatory system; Z71.6 Tobacco abuse counseling; Z79.01 Long term (current) use of anticoagulants; Z03.818 Encounter for observation for suspected exposure to other biological agents ruled out
CPT/HCPCS: 36415; 71045; 80048; 80053; 82140; 82550; 82728; 82947; 82962; 83615; 83735; 84145; 85007; 85025; 85027; 85379; 85610; 86140; 86850; 86900; 86901; 87040; 93005; 93306; 94640; 94760; 96361; 96372; 96374; 96375; G0378; J0456; J0696; J1940; J2920; J2930; J7040; J7050; P9035; U0003-CS